=== PATIENT | female | born 1960 | race Caucasian/White ===

== ENCOUNTER 2020-04-28 08:18 | Outpatient (REF) | payer OTHER, SELFPAY | END 2020-04-28 08:19 | disposition home or self-care (01) | LOC: HO.LAB 08:18 | PROVIDERS: PCP Internal Medicine; Visit Provider Internal Medicine | DX: Z20.828 Contact with and (suspected) exposure to other viral communicable diseases (principal) | CPT/HCPCS: 87635 ==

== ENCOUNTER 2020-07-15 10:31 | Outpatient (REF) | payer OTHER, SELFPAY ==
[2020-07-15 12:27] LABS: Alanine Aminotransferase 36 U/L (0-31); Albumin Level 4.2 g/dL (3.5-5.0); Alkaline Phosphatase 73 U/L (39-117); Anion Gap 15 (12-20); Aspartate Amino Transferase 22 U/L (5-31); Bilirubin Total 0.4 mg/dL (0.0-1.0); Blood Urea Nitrogen 10 mg/dL (9-16); Calcium 9.3 mg/dL (8.4-10.2); Carbon Dioxide 27 mmol/L (22-29); Chloride 106 mmol/L (96-108); Cholesterol 220 mg/dL; Estimated Glomerular Filt Rate > 60; Glucose Fasting 91 mg/dL (60-99); HDL Cholesterol 53 mg/dL; LDL Cholesterol Calculated 144 mg/dl; Sodium 143 mmol/L (135-145); Total Protein 7.3 g/dL (6.5-8.0); Triglycerides 118 mg/dL
[2020-07-19 12:17] LABS: Vitamin D 25-OH, D2 <4 ng/mL; Vitamin D 25-OH, D3 18 ng/mL; Vitamin D 25-OH, Total 18 ng/mL (30-100)
== END 2020-07-15 10:32 | disposition home or self-care (01) ==
LOC: HO.LAB 10:31
PROVIDERS: PCP Internal Medicine; Visit Provider Internal Medicine
DX: Z20.822 Contact with and (suspected) exposure to COVID-19 (principal); E78.00 Pure hypercholesterolemia, unspecified; E78.5 Hyperlipidemia, unspecified; E55.9 Vitamin D deficiency, unspecified
CPT/HCPCS: 36415; 80053; 80061; 82306; U0003

== ENCOUNTER 2021-03-17 16:49 | Outpatient (REF) | payer OTHER, SELFPAY ==
--- NOTE | ~2021-03-17 | XR_ITS ---
EXAMINATION: XR KNEE, RIGHT CLINICAL INFORMATION: Right knee pain. COMPARISON: None. TECHNIQUE: 4 views of the right knee. FINDINGS: Mild medial and patellofemoral compartment joint space narrowing. Small tricompartmental marginal osteophytes. No osseous erosion. No fracture or dislocation. Trace joint effusion. No abnormal soft tissue calcification. XR/XR knee RT 4V IMPRESSION: Tricompartmental osteoarthritis and trace joint effusion.
[2021-03-17 17:55] LABS: MANUAL DIFF FLAG NO
[2021-03-17 18:15] LABS: Alanine Aminotransferase 33 U/L (0-31); Albumin Level 4.5 g/dL (3.5-5.0); Alkaline Phosphatase 79 U/L (39-117); Anion Gap 10 (12-20); Aspartate Amino Transferase 22 U/L (5-31); Bilirubin Total 0.4 mg/dL (0.0-1.0); Blood Urea Nitrogen 13 mg/dL (9-16); Calcium 9.8 mg/dL (8.4-10.2); Carbon Dioxide 29 mmol/L (22-29); Chloride 105 mmol/L (96-108); Cholesterol 230 mg/dL; Estimated Glomerular Filt Rate > 60; Glucose Fasting 93 mg/dL (60-99); HDL Cholesterol 53 mg/dL; LDL Cholesterol Calculated 150 mg/dl; Potassium 4.3 mmol/L (3.3-5.1); Sodium 140 mmol/L (135-145); Total Protein 7.7 g/dL (6.5-8.0); Triglycerides 139 mg/dL
[2021-03-17 18:30] LABS: Basophils Percent Auto 0.5 % (0-2); Eosinophils Absolute Auto 0.1 X10*3/uL (0.0-0.4); Eosinophils Percent Auto 1.6 % (0-4); Hematocrit 40.5 % (37-47); Hemoglobin 13.1 g/dl (12.0-16.0); Imm Gran Abs Auto 0.05 X10*3/uL (0.00-0.03); Imm Gran Pct Auto 0.6 % (0.0-0.4); Lymphocytes Absolute Auto 2.6 X10*3/uL (1.2-4.9); Lymphocytes Percent Auto 29.6 % (20-40); Mean Corpuscular HGB Conc 32.3 g/dl (31.0-35.0); Mean Corpuscular Hemoglobin 28.9 pg (27.0-33.0); Mean Corpuscular Volume 89.2 fL (80-98); Mean Platelet Volume 10.2 fL (9.4-12.3); Monocytes Absolute Auto 0.9 X10*3/uL (0.1-1.2); Monocytes Percent Auto 10.9 % (2-11); Neutrophils Absolute Auto 4.9 X10*3/uL (2.0-8.3); Neutrophils Percent Auto 56.8 % (45-73); Platelet Count 388 X10*3/uL (160-400); Red Blood Count 4.54 X10*6/uL (4.20-5.50); Red Cell Distribution Width 12.1 % (11.0-16.0); White Blood Count 8.6 X10*3/uL (4.8-10.8)
[2021-03-17 18:36] LABS: Thyroid Stimulating Hormone 1.94 uIU/mL (0.32-4.0)
[2021-03-22 16:56] LABS: Vitamin D 25-OH, D2 <4 ng/mL; Vitamin D 25-OH, D3 36 ng/mL; Vitamin D 25-OH, Total 36 ng/mL (30-100)
== END 2021-03-17 16:50 | disposition home or self-care (01) ==
LOC: HO.XRAY 16:49
PROVIDERS: PCP Internal Medicine; Visit Provider Internal Medicine
DX: E66.9 Obesity, unspecified (principal); E55.9 Vitamin D deficiency, unspecified; E78.5 Hyperlipidemia, unspecified; M25.561 Pain in right knee
CPT/HCPCS: 36415; 73564; 80053; 80061; 82306; 84443; 85025

== ENCOUNTER 2021-05-25 08:39 | Outpatient (REF) | payer OTHER, SELFPAY ==
[2021-05-25 09:37] LABS: Alanine Aminotransferase 16 U/L (0-31); Albumin Level 4.3 g/dL (3.5-5.0); Alkaline Phosphatase 81 U/L (39-117); Anion Gap 13 (12-20); Aspartate Amino Transferase 15 U/L (5-31); Bilirubin Total 0.4 mg/dL (0.0-1.0); Blood Urea Nitrogen 10 mg/dL (9-16); Carbon Dioxide 27 mmol/L (22-29); Chloride 106 mmol/L (96-108); Cholesterol 160 mg/dL; Estimated Glomerular Filt Rate > 60; Glucose Fasting 101 mg/dL (60-99); HDL Cholesterol 46 mg/dL; LDL Cholesterol Calculated 94 mg/dl; Potassium 4.4 mmol/L (3.3-5.1); Sodium 142 mmol/L (135-145); Total Protein 7.6 g/dL (6.5-8.0); Triglycerides 101 mg/dL
[2021-05-25 14:47] LABS: MANUAL DIFF FLAG NO
[2021-05-25 15:07] LABS: Basophils Absolute Auto 0.1 X10*3/uL (0.0-0.2); Basophils Percent Auto 0.9 % (0-2); Eosinophils Absolute Auto 0.3 X10*3/uL (0.0-0.4); Eosinophils Percent Auto 3.6 % (0-4); Hematocrit 41.6 % (37.0-47.0); Hemoglobin 13.3 g/dl (12.0-16.0); Imm Gran Abs Auto 0.03 X10*3/uL (0.00-0.03); Imm Gran Pct Auto 0.3 % (0.0-0.4); Lymphocytes Absolute Auto 2.5 X10*3/uL (1.2-4.9); Lymphocytes Percent Auto 25.9 % (20-40); Mean Corpuscular Hemoglobin 28.4 pg (27.0-33.0); Mean Corpuscular Volume 88.9 fL (80.0-98.0); Mean Platelet Volume 9.4 fL (9.4-12.3); Monocytes Absolute Auto 0.9 X10*3/uL (0.1-1.2); Monocytes Percent Auto 8.9 % (2-11); Neutrophils Absolute Auto 5.8 x10*3/uL (2.0-8.3); Neutrophils Percent Auto 60.4 % (45-73); Platelet Count 453 X10*3/uL (160-400); Red Blood Count 4.68 X10*6/uL (4.20-5.50); Red Cell Distribution Width 11.8 % (11.0-16.0); White Blood Count 9.6 X10*3/uL (4.8-10.8)
== END 2021-05-25 08:40 | disposition home or self-care (01) ==
LOC: HO.LAB 08:39
PROVIDERS: Absent Provider Nurse Practitioner Family; PCP Internal Medicine; Visit Provider Internal Medicine
DX: E78.00 Pure hypercholesterolemia, unspecified (principal); E78.5 Hyperlipidemia, unspecified; I10 Essential (primary) hypertension; K92.1 Melena
CPT/HCPCS: 36415; 80053; 80061; 85025

== ENCOUNTER 2021-06-15 07:18 | Emergency (ER) | payer OTHER, SELFPAY ==
[2021-06-15 07:53] VITALS: BP 168/84; PULSE 86; RESP 18; TEMP 36.8; O2SAT 96; BMI 29.2
--- NOTE | 2021-06-15 07:53 | ED_ITS ---
HPI - GI Bleed General Chief complaint: General Medical Stated complaint: rectal bleed Time Seen by Provider: 06/15/21 07:48 Source: patient Mode of arrival: ambulatory History of Present Illness HPI Narrative: ^1 yo presented with 4 Weeks hx of rectal bleeding,she states that she has bleeding only when she has to move the bowel,no melena,she saw PCP 1 Weeks ago told that she has hemorrhoid MD complaint: blood streaked stool Onset (ago): week(s) (4) Pain Consistency: constant Severity: mild Relieving factors: none Exacerbating factors: none Associated symptoms: denies other symptoms Related Data Home Medications Medication Instructions Recorded Confirmed omega-3 fatty acids 1,000 mg 1,000 mg PO DAILY 05/25/21 05/25/21 capsule (Fish Oil Concentrate) Previous Rx's Medication Instructions Recorded cholecalciferol (vitamin D3) 50 50 mcg PO DAILY 90 Days #90 cap 11/12/20 mcg (2,000 unit) capsule sennosides 8.6 mg capsule (senna) 8.6 mg PO BEDTIME PRN 90 Days #90 11/12/20 cap hydrocortisone-pramoxine 2.5 %-1 % 1 appl MO BID-TID PRN #30 g 05/25/21 rectal cream witch juliane 50 % topical pads 1 pad TOPICAL BID-TID PRN #100 ea 05/25/21 (Hemorrhoidal (witch juliane)) Allergies Allergy/AdvReac Type Severity Reaction Status Date / Time No Known Allergies Allergy Verified 05/25/21 13:43 Review of Systems Review of Systems: Yes all other systems are reviewed and are negative Constitutional: Constitutional: Reports no additional constitutional complaints ENT: Reports system reviewed and no additional complaints, except as documented and Denies dysphagia Cardiovascular: Cardiovascular: Reports no additional cardiovascular complaints Gastrointestinal: Gastrointestinal: Denies abdominal pain, Denies change in bowel habits, Denies coffee ground emesis and Denies dysphagia Neurologic: Reports system reviewed and no additional complaints, except as documented [facility] Past Medical History Medical History Constipation by delayed colonic transit GERD (gastroesophageal reflux disease) Hypovitaminosis D Obese Pure hypercholesterolemia Right knee pain Surgical History History of hysterectomy History of laparoscopic cholecystectomy Family History Family History Father Heart disease Mother Diabetes Hypertension Heart valve replaced Brother Myocardial infarction Maternal Grandmother No problems noted. Maternal Grandfather No problems noted. Paternal Grandmother Colon cancer Paternal Grandfather No problems noted. Social History Social History Housing: House Alcohol intake: never Patient Tobacco Use Status: Never used Tobacco e-Cigarette/Vaping Use: Never Used Second Hand Smoke Exposure: No Use of substances other than those prescribed or required for medical reasons: No Advance Directives: No Advance Directives Information Provided: No service: No Current occupational status: employed Current occupation: [employer] Cognitive needs: No Hearing needs: No Vision needs: Yes (Glasses) Physical Exam Vital Signs: Vital Signs: Last Vital Signs Temp 98.4 F 06/15/21 08:14 Pulse 89 06/15/21 08:14 Resp 16 06/15/21 08:14 BP 168/84 H 06/15/21 08:14 Pulse Ox 95 06/15/21 08:14 BMI result Body Mass Index 29.2 Const: General: cooperative Nutritional Appearance: average body habitus Orientation/consciousness: oriented to person and patient oriented x3 HENMT: Head: Yes normal to inspection Face and sinus: Yes normal facial exam Mouth: Normal oral and palatal mucosa present Neck: Neck: Yes normal visual inspection Chest: Chest palpation & inspection: normal inspection of the chest Resp: Effort & Inspection: normal respiratory effort Auscultation: clear to auscultation bilaterally Cardio: Jugular venous distension: no JVD Rate: regular rate Rhythm: regular rhythm GI: Inspection: Yes normal to inspection Palpation (GI): Soft to palpation, not firm, nontender, no guarding and not rigid Rectal Exam - Female: No heme positive stool and External hemorrhoid(s) present Neuro: General: oriented to person and patient oriented x3 Course Reevaluation(s) Reevaluation #1: HB HCT stable,heme negative stools OK to discharge and follow up with GI MDM - GI Bleed Lab Data Result diagrams: 06/15/21 08:12 06/15/21 08:12 Labs: Lab Results 06/15/21 06/15/21 06/15/21 Range/Units 08:12 08:12 08:12 WBC 8.2 (4.8-10.8) X10*3/uL RBC 4.36 (4.20-5.50) X10*6/uL Hgb 12.5 (12.0-16.0) g/dl Hct 38.8 (37.0-47.0) % MCV 89.0 (80.0-98.0) fL MCH 28.7 (27.0-33.0) pg MCHC 32.2 (31.0-35.0) g/dl RDW 11.9 (11.0-16.0) % Plt Count 407 H (160-400) X10*3/uL MPV 9.3 L (9.4-12.3) fL Immature Gran % (Auto) 0.4 (0.0-0.4) % Neut % (Auto) 52.1 (45-73) % Lymph % (Auto) 29.3 (20-40) % [place] % (Auto) 11.1 H (2-11) % Eos % (Auto) 6.0 H (0-4) % Baso % (Auto) 1.1 (0-2) % Lymph # (Auto) 2.4 (1.2-4.9) X10*3/uL [place] # (Auto) 0.9 (0.1-1.2) X10*3/uL Eos # (Auto) 0.5 H (0.0-0.4) X10*3/uL Baso # (Auto) 0.1 (0.0-0.2) X10*3/uL Abs Immat Gran (auto) 0.03 (0.00-0.03) X10*3/uL Absolute Neuts (auto) 4.3 (2.0-8.3) x10*3/uL Absolute Nucleated RBC 0.000 (0.0-0.012) X10*3/uL Nucleated RBC % (auto) 0.0 (0.0-0.2) /100WBC PT (9.9-13.0) SEC INR (0.9-1.1) APTT 33.4 (24.1-38.0) SEC Sodium 141 (135-145) mmol/L Potassium 4.2 (3.3-5.1) mmol/L Chloride 108 (96-108) mmol/L Carbon Dioxide 25 (22-29) mmol/L Anion Gap 12 (12-20) BUN 13 (9-16) mg/dL Creatinine 0.81 (0.5-1.4) mg/dL Estim Creat Clear Calc 72.3 Estimated GFR > 60 Random Glucose 100 (60-115) mg/dL Calcium 10.0 (8.4-10.2) mg/dL Total Bilirubin 0.6 (0.0-1.0) mg/dL AST 19 (5-31) U/L ALT 20 (0-31) U/L Alkaline Phosphatase 78 (39-117) U/L Total Protein 7.3 (6.5-8.0) g/dL Albumin 4.1 (3.5-5.0) g/dL Stool Occult Blood (NEGATIVE) 06/15/21 06/15/21 Range/Units 08:12 08:12 WBC (4.8-10.8) X10*3/uL RBC (4.20-5.50) X10*6/uL Hgb (12.0-16.0) g/dl Hct (37.0-47.0) % MCV (80.0-98.0) fL MCH (27.0-33.0) pg MCHC (31.0-35.0) g/dl RDW (11.0-16.0) % Plt Count (160-400) X10*3/uL MPV (9.4-12.3) fL Immature Gran % (Auto) (0.0-0.4) % Neut % (Auto) (45-73) % Lymph % (Auto) (20-40) % [place] % (Auto) (2-11) % Eos % (Auto) (0-4) % Baso % (Auto) (0-2) % Lymph # (Auto) (1.2-4.9) X10*3/uL [place] # (Auto) (0.1-1.2) X10*3/uL Eos # (Auto) (0.0-0.4) X10*3/uL Baso # (Auto) (0.0-0.2) X10*3/uL Abs Immat Gran (auto) (0.00-0.03) X10*3/uL Absolute Neuts (auto) (2.0-8.3) x10*3/uL Absolute Nucleated RBC (0.0-0.012) X10*3/uL Nucleated RBC % (auto) (0.0-0.2) /100WBC PT 12.3 (9.9-13.0) SEC INR 1.1 (0.9-1.1) APTT (24.1-38.0) SEC Sodium (135-145) mmol/L Potassium (3.3-5.1) mmol/L Chloride (96-108) mmol/L Carbon Dioxide (22-29) mmol/L Anion Gap (12-20) BUN (9-16) mg/dL Creatinine (0.5-1.4) mg/dL Estim Creat Clear Calc Estimated GFR Random Glucose (60-115) mg/dL Calcium (8.4-10.2) mg/dL Total Bilirubin (0.0-1.0) mg/dL AST (5-31) U/L ALT (0-31) U/L Alkaline Phosphatase (39-117) U/L Total Protein (6.5-8.0) g/dL Albumin (3.5-5.0) g/dL Stool Occult Blood NEGATIVE (NEGATIVE) Discharge Plan Discharge Clinical Impression: External hemorrhoid, Rectal bleed Patient Disposition: Home, Self-Care Instructions: Hemorrhoids (ED), Rectal Bleeding (ED) Additional Instructions: Follow up with express clerk return if worse Prescriptions: No Action cholecalciferol (vitamin D3) 50 mcg (2,000 unit) capsule 50 mcg PO DAILY 90 Days Qty: 90 RF: 3 senna 8.6 mg capsule 8.6 mg PO BEDTIME PRN (Reason: constipation) 90 Days Qty: 90 RF: 0 omega-3 fatty acids [Fish Oil Concentrate] 1,000 mg capsule 1,000 mg PO DAILY RF: 0 hydrocortisone-pramoxine 2.5-1 % cream 1 appl MO BID-TID PRN (Reason: itching) Qty: 30 RF: 0 Hemorrhoidal (witch juliane) 50 % pads, medicated 1 pad topical BID-TID PRN (Reason: skin irritation) Qty: 100 RF: 0 Referrals: Yasir Arrieta [Physician] - 2 days Stand Alone Forms: Work/School Release Interventions: ED Discharge Assessment Last Done: 06/15/21 09:36 Discharge Date/Time: 06/15/21 09:38
[2021-06-15 08:14] VITALS: BP 168/84; PULSE 89; RESP 16; TEMP 36.9; O2SAT 95
[2021-06-15 08:21] LABS: MANUAL DIFF FLAG NO
[2021-06-15 08:24] LABS: Basophils Absolute Auto 0.1 X10*3/uL (0.0-0.2); Basophils Percent Auto 1.1 % (0-2); Eosinophils Absolute Auto 0.5 X10*3/uL (0.0-0.4); Hematocrit 38.8 % (37.0-47.0); Hemoglobin 12.5 g/dl (12.0-16.0); Imm Gran Abs Auto 0.03 X10*3/uL (0.00-0.03); Imm Gran Pct Auto 0.4 % (0.0-0.4); Lymphocytes Absolute Auto 2.4 X10*3/uL (1.2-4.9); Lymphocytes Percent Auto 29.3 % (20-40); Mean Corpuscular HGB Conc 32.2 g/dl (31.0-35.0); Mean Corpuscular Hemoglobin 28.7 pg (27.0-33.0); Mean Platelet Volume 9.3 fL (9.4-12.3); Monocytes Absolute Auto 0.9 X10*3/uL (0.1-1.2); Monocytes Percent Auto 11.1 % (2-11); Neutrophils Absolute Auto 4.3 x10*3/uL (2.0-8.3); Neutrophils Percent Auto 52.1 % (45-73); OBS Int Ctl Valid YES; OBS1 NEGATIVE (NEGATIVE); Platelet Count 407 X10*3/uL (160-400); Red Blood Count 4.36 X10*6/uL (4.20-5.50); Red Cell Distribution Width 11.9 % (11.0-16.0); White Blood Count 8.2 X10*3/uL (4.8-10.8)
[2021-06-15 08:51] LABS: Partial Thromboplastin Time 33.4 SEC (24.1-38.0)
[2021-06-15 08:52] LABS: INTERNATIONAL NORM RATIO 1.1 (0.9-1.1); Prothrombin Time 12.3 SEC (9.9-13.0)
[2021-06-15 08:53] LABS: Alanine Aminotransferase 20 U/L (0-31); Albumin Level 4.1 g/dL (3.5-5.0); Alkaline Phosphatase 78 U/L (39-117); Anion Gap 12 (12-20); Aspartate Amino Transferase 19 U/L (5-31); Bilirubin Total 0.6 mg/dL (0.0-1.0); Blood Urea Nitrogen 13 mg/dL (9-16); Carbon Dioxide 25 mmol/L (22-29); Chloride 108 mmol/L (96-108); Creatinine Clr Calc Pharmacy 72.3; Estimated Glomerular Filt Rate > 60; Glucose Random 100 mg/dL (60-115); Potassium 4.2 mmol/L (3.3-5.1); Sodium 141 mmol/L (135-145); Total Protein 7.3 g/dL (6.5-8.0)
== END 2021-06-15 09:38 | disposition home or self-care (01) ==
PROVIDERS: Emergency Provider Emergency Medicine; PCP Internal Medicine
DX: K64.4 Residual hemorrhoidal skin tags (principal); K62.5 Hemorrhage of anus and rectum
CPT/HCPCS: 36415; 80053; 82272; 85025; 85610; 85730; 99284

== ENCOUNTER → 2021-08-03 08:14 | Outpatient (BNVA) | payer OTHER, SELFPAY | PROVIDERS: PCP Internal Medicine; Referring Provider Internal Medicine; Visit Provider Internal Medicine Gastroenterology ==

== ENCOUNTER 2021-10-03 13:01 | Outpatient (REF) | payer OTHER, SELFPAY ==
[2021-10-03 13:28] LABS: Binax Internal Control QC Valid; Binax Now Covid-19 Ag Positive (Negative); Binax Performed by: HO.BONILM
== END 2021-10-03 13:02 | disposition home or self-care (01) ==
LOC: HO.HMGCLDS 13:01
PROVIDERS: PCP Internal Medicine; Visit Provider Physician Assistant Medical
DX: Z13.89 Encounter for screening for other disorder (principal)

== ENCOUNTER 2021-10-12 07:41 | Emergency (ER) | payer OTHER, SELFPAY ==
--- NOTE | ~2021-10-12 | XR_ITS ---
EXAMINATION: XR CHEST CLINICAL INFORMATION: Productive cough. Chest pain. COMPARISON: 01/14/2018 TECHNIQUE: 2 views of the chest were obtained. FINDINGS: The lungs are well expanded. There is no focal consolidation, edema, or effusion. No pneumothorax. The cardiomediastinal silhouette is within normal limits. No acute osseous abnormality. XR/XR chest 2V IMPRESSION: Clear lungs.
--- NOTE | 2021-10-12 07:49 | ECG_ITS ---
Test Reason : cp Blood Pressure : / mmHG Vent. Rate : 074 BPM Atrial Rate : 074 BPM P-R Int : 120 ms QRS Dur : 078 ms QT Int : 380 ms P-R-T Axes : 026 049 055 degrees QTc Int : 421 ms Normal sinus rhythm Normal ECG When compared with ECG of 28-MAR-2018 09:27, Nonspecific T wave abnormality no longer evident in Anterior leads Referred By: Generic ED Physician Electronically Signed By:JOSETTE RENEE MD
[2021-10-12 08:10] VITALS: BP 189/80; PULSE 84; RESP 18; TEMP 36.1; O2SAT 98; BMI 28.3
--- NOTE | 2021-10-12 08:16 | ED.URI ---
HPI - URI/Sore Throat General Chief Complaint: Upper Respiratory Symptoms Stated Complaint: Body aches/Chest pain Time Seen by Provider: 10/12/21 08:15 Source: patient Mode of arrival: ambulatory Limitations: no limitations History of Present Illness HPI Narrative: 60 y/o female with history of osteoarthritis, GERD, HLD presents to the ER with bodyaches, productive cough of yellow phlegm, ear pressure, headaches and not feeling well for the last almost 2 weeks. She was seen at the end of September at an Urgent Care and had a negative COVID test. She has been taking OTC cold and flu medications Nyquil and Mucinex with minimal improvement. She reports chest discomfort when coughing only. No SOB or difficulty breathing. She feels drained and weak from being sick for so long. She denies sick contacts. She has J&J COVID shot almost a year ago, no Flu shot. MD elicited complaint: cough and other (body aches) Onset (ago): week(s) (2) Consistency: constant Severity: moderate Description of mucous: yellow Able to tolerate fluids by mouth: Yes Exacerbating factors: nothing Relieving factors: OTC cold medicine Associated symptoms: myalgias, headache, sore throat, cough, chest pain, shortness of breath and ear pain Treatments prior to arrival: none Related Data Home Medications Medication Instructions Recorded Confirmed omega-3 fatty acids 1,000 mg 1,000 mg PO DAILY 05/25/21 08/06/21 capsule (Fish Oil Concentrate) Previous Rx's Medication Instructions Recorded cholecalciferol (vitamin D3) 50 50 mcg PO DAILY 90 Days #90 cap 11/12/20 mcg (2,000 unit) capsule sennosides 8.6 mg capsule (senna) 8.6 mg PO BEDTIME PRN 90 Days #90 11/12/20 cap sennosides 8.6 mg-docusate sodium 1 tab-cap PO BEDTIME 28 Days #28 06/15/21 50 mg tablet (Senna with Docusate tab Sodium) psyllium husk 2.6 gram/4.1 gram 1 tbsp PO DAILY 30 Days #480 g 08/03/21 oral powder lidocaine 1.8 % topical patch 1 patch TOPICAL DAILY 30 Days #30 08/06/21 ea naproxen 500 mg tablet 500 mg PO BID PRN 30 Days #60 tab 08/06/21 azithromycin 250 mg tablet See Rx Instructions .ROUTE 10/12/21 (Zithromax Z-Rj) .COMPLEX #6 tab prednisone 20 mg tablet 40 mg PO DAILY #10 tab 10/12/21 Allergies Allergy/AdvReac Type Severity Reaction Status Date / Time atorvastatin AdvReac Mild myalgia Verified 10/03/21 12:24 Review of Systems Review of Systems: Constitutional: No Fever, No Chills ENT/Mouth: + sore throat, No Rhinorrhea, No Swallowing Difficulty Eyes: No Eye Pain, No Swelling, No Redness Cardiovascular: + Chest Pain, No SOB, No Orthopnea, No Edema Respiratory: + Cough, + Sputum, No Wheezing, No dyspnea Gastrointestinal: No Nausea, No Vomiting, No Diarrhea, No abdominal Pain, No Hematochezia, No Melena Genitourinary: No Dysuria, No Urinary Frequency, No Hematuria Musculoskeletal: + joint pain, + Myalgias Skin: No Skin Lesions, No rash Neuro: + Weakness, No Numbness, No Dizziness, + Headache Psych: No Anxiety/Panic, No Depression Heme/Lymph: No Bruising, No Lymphadenopathy Endocrine: No Polyuria, No Polydipsia [facility] Past Medical History Attestation statement: The following information was validated with the patient. Medical History Constipation by delayed colonic transit GERD (gastroesophageal reflux disease) Hypovitaminosis D Obese Osteoarthritis of right knee Pure hypercholesterolemia Right knee pain Surgical History History of hysterectomy History of laparoscopic cholecystectomy Family History Family History Father Heart disease Mother Diabetes Hypertension Heart valve replaced Brother Myocardial infarction Maternal Grandmother No problems noted. Maternal Grandfather No problems noted. Paternal Grandmother Colon cancer Paternal Grandfather No problems noted. Social History Social History Housing: House Alcohol intake: never Patient Tobacco Use Status: Never used Tobacco e-Cigarette/Vaping Use: Never Used Second Hand Smoke Exposure: No service: No Current occupational status: employed Current occupation: [employer] Cognitive needs: No Hearing needs: No Vision needs: Yes (Glasses) Physical Exam Vital Signs: Vital Signs: Last Vital Signs Temp 97 F 10/12/21 08:10 Pulse 84 10/12/21 08:10 Resp 18 10/12/21 08:10 BP 189/80 H 10/12/21 08:10 Pulse Ox 98 10/12/21 08:10 BMI result Body Mass Index 28.3 Appearance: Alert. Oriented X3. No acute distress. Eyes: Pupils equal, round and reactive to light. ENT: Pharynx normal. Normal tonsils, uvula midline. Bilateral TMs with effusion, no erythema or bulging. Neck: Normal inspection. Neck supple. No LAD. CVS: Normal heart rate and rhythm. Pulses normal. Respiratory: No respiratory distress. Breath sounds normal. Wet cough noted. Skin: Skin warm and dry. Normal skin color. Normal skin turgor. No rashes. Extremities: No lower extremity edema. No calf tenderness. Neuro: Oriented X 3. Grossly normal, nonfocal. Course Course Course Narrative: 60 y/o female presents to the ER with close 2 weeks of URI symptoms including sore throat, ear pain, headaches, body aches and joint pains, productive cough of yellow phlegm and chest wall pain. She was recently tested for COVID and was negative. She denies any fever or chills at home, no shortness of breath or difficulty breathing. She reports the chest pain is only when she coughs or touches her chest wall. On arrival to the ER she is hypertensive 189/90, afebrile, normal heart rate and normal oxygen saturation. Her examination is benign. Will check chest x-ray to rule out pneumonia as well as COVID and flu swabs. She has been taking [id number] cold and flu medications which can be the cause of her elevated blood pressure. She has no current chest pain, headaches or vision changes. CP is not consistent with ACS. Reevaluation(s) Reevaluation #1: Chest x-ray is clear. COVID and flu were negative. EKG is normal. Given the duration of her symptoms and complaints, will give empiric course of antibiotics and steroids for URI. Work note provided per request. Patient is stable for discharge home with supportive care and outpatient follow-up. She was encouraged follow-up with her primary care doctor this week. Return precautions were discussed. [facility] - URI/Sore Throat Medical Records Attestation: I reviewed the patient's medical records. Lab Data Attestation: I reviewed the patient's lab results. Labs: Lab Results 10/12/21 10/12/21 Range/Units 09:14 09:14 COVID-19 ([place]) Negative (Negative) COVID-19 Clin Com See Note Influenza Type A ([place]) Negative (Negative) Influenza Type B ([place]) Negative (Negative) Influenza A & B Note See Note ECG Data Attestation: I personally reviewed and interpreted this ECG as follows: ECG interpretation date: 10/12/21 Prior ECG tracings: available for review Interpretation: Normal sinus rhythm, heart rate 74 beats per minute, normal OK interval, normal QTC, normal EKG. No ST segment elevations or depressions. Critical Care Time Critical Care Time Critical Care Time: No Discharge Plan Discharge Clinical Impression: Upper respiratory infection Patient Disposition: Home, Self-Care Instructions: Upper Respiratory Infection (DC) Additional Instructions: Your chest x-ray did not show any pneumonia. You are negative for COVID-19 and Influenza. Take the prescribed medications as directed. Take Motrin and/or Tylenol as needed for body aches and pains. Rest and drink plenty of fluids. Follow up with your doctor this week. If you develop new or worsening symptoms call 911 or come back to the ER for further evaluation. Prescriptions: New prednisone 20 mg tablet 40 mg PO DAILY Qty: 10 0RF azithromycin [Zithromax Z-Rj] 250 mg tablet See Rx Instructions .ROUTE .COMPLEX Qty: 6 0RF Rx Instructions: take 500 mg today (day 1), then 250 mg for 4 days (days 2-5) No Action sennosides-docusate sodium [Senna with Docusate Sodium] 8.6-50 mg tablet 1 tab-cap PO BEDTIME 28 Days Qty: 28 3RF cholecalciferol (vitamin D3) 50 mcg (2,000 unit) capsule 50 mcg PO DAILY 90 Days Qty: 90 3RF senna 8.6 mg capsule 8.6 mg PO BEDTIME PRN (Reason: constipation) 90 Days Qty: 90 0RF naproxen 500 mg tablet 500 mg PO BID PRN (Reason: pain) 30 Days Qty: 60 0RF lidocaine 1.8 % adhesive patch,medicated 1 patch topical DAILY 30 Days Qty: 30 0RF Rx Instructions: leave on most painful area for up to 12 hrs omega-3 fatty acids [Fish Oil Concentrate] 1,000 mg capsule 1,000 mg PO DAILY 0RF psyllium husk 2.6 gram/4.1 gram powder 1 tbsp PO DAILY 30 Days Qty: 480 3RF Rx Instructions: mix into at least 8 oz of water or juice before administering Stand Alone Forms: Work/School Release Interventions: ED Discharge Assessment Last Done: 10/12/21 10:36 Discharge Date/Time: 10/12/21 10:37
[2021-10-12 09:44] LABS: COVID-19 Test Negative (Negative)
[2021-10-12 10:21] LABS: Influenza A Negative (Negative); Influenza B2 Negative (Negative)
== END 2021-10-12 10:37 | disposition home or self-care (01) ==
PROVIDERS: Physician Assistant; Emergency Provider Emergency Medicine; PCP Internal Medicine
DX: J06.9 Acute upper respiratory infection, unspecified (principal); Z20.822 Contact with and (suspected) exposure to COVID-19; J02.9 Acute pharyngitis, unspecified
CPT/HCPCS: 71046; 87502; 87635; 93005; 99283

== ENCOUNTER 2022-04-21 09:12 | Outpatient (REF) | payer OTHER, SELFPAY ==
[2022-04-21 10:56] LABS: Cholesterol 230 mg/dL; HDL Cholesterol 55 mg/dL; LDL Cholesterol Calculated 156 mg/dl; Triglycerides 95 mg/dL
[2022-04-27 14:07] LABS: Vitamin D 25-OH, D2 <4 ng/mL; Vitamin D 25-OH, D3 33 ng/mL; Vitamin D 25-OH, Total 33 ng/mL (30-100)
== END 2022-04-21 09:13 | disposition home or self-care (01) ==
LOC: HO.LAB 09:12
PROVIDERS: PCP Internal Medicine; Visit Provider Internal Medicine
DX: E55.9 Vitamin D deficiency, unspecified (principal); E78.5 Hyperlipidemia, unspecified
CPT/HCPCS: 36415; 80061; 82306

== ENCOUNTER 2023-04-22 09:41 | Outpatient (AMB) | payer BC, SELFPAY ==
--- NOTE | 2023-04-22 13:18 | AM.OFFWIN_ITS ---
Intake Vital Signs 04/22/23 13:20 Weight 173 lb BP 140/90 H Blood Pressure Location Lt brachial Position Sitting Pulse 90 Pulse Source Pulse Oximeter Pulse Oximetry (%) 98 Oxygen Delivery Method Room Air Intake Visit Reasons: EST/sinus inf/(lobby no car) Intake Note: Patient here for possible sinus infection and has throbbing and pressure on right side of face that has been present for about 2 weeks and has not gone away. Patient Tobacco Use Status: Never used Tobacco Allergies atorvastatin Adverse Reaction (Mild, Verified 04/22/23 13:21) myalgia Do you need a note to return to daycare/school/sports/work: No HPI HPI Comments History of Present Illness Details This is a 62-year-old female who presents to the office today for sick visit. Patient complaining of persistent right-sided sinus pressure / congestion and right-sided facial swelling x2 weeks. She denies any fevers or chills. She denies any throat swelling or difficulty swallowing. She denies any difficulty breathing. She denies any chest pain. She denies any abdominal pain or nausea/ vomiting/ diarrhea. Patient states she feels as though she is very congested and she has been utilizing [id number] decongestants but she is not having much rhinorrhea or drainage. [facility] Medical History Constipation by delayed colonic transit GERD (gastroesophageal reflux disease) Hypovitaminosis D Obese Osteoarthritis of right knee Pure hypercholesterolemia Right knee pain Surgical History History of hysterectomy History of laparoscopic cholecystectomy Family History Father Heart disease Mother Diabetes Hypertension Heart valve replaced Brother Myocardial infarction Maternal Grandmother No problems noted. Maternal Grandfather No problems noted. Paternal Grandmother Colon cancer Paternal Grandfather No problems noted. Social History Housing: House Alcohol intake: current Alcohol intake frequency: holidays/special occasions only Alcohol type: wine Patient Tobacco Use Status: Never used Tobacco e-Cigarette/Vaping Use: Never Used Second Hand Smoke Exposure: No service: No Current occupational status: employed Current occupation: [employer] Current occupational exposures/hazards: No Cognitive needs: No Hearing needs: No Vision needs: Yes (Glasses) Review of Systems Const All systems reviewed & are unremarkable except as noted in HPI and below Reports no additional complaints Eyes Reports no additional complaints ENT Reports no additional complaints Card Reports no additional complaints Resp Reports no additional complaints GI Reports no additional complaints Reports no additional complaints Musc Reports no additional complaints Skin/Breast Reports system reviewed and no additional complaints, except as documented Neuro Reports no additional complaints Psych Reports no additional complaints Endo Reports no additional complaints Tamir/Lymph Reports no additional complaints Aller/Immun Reports no additional complaints Physical Exam Vital Signs: Last Vital Signs Pulse 90 04/22/23 13:20 BP 140/90 H 04/22/23 13:20 Pulse Ox 98 04/22/23 13:20 Oxygen Delivery Method Room Air 04/22/23 13:20 Const Other: Vital signs reviewed. Constitutional: Non-toxic appearing. No acute distress. Well-developed and well-nourished. HEENT: Normocephalic and atraumatic. Tympanic membranes are slightly bulging bilaterally but no erythema. External auditory canals without erythema or edema bilaterally. Moist mucous membranes. No pharyngeal erythema or exudates. No peritonsillar mass, uvular deviation, unilateral neck swelling. No right-sided facial swelling appreciated on physical examination. No gingivitis or dental abscess noted. No postauricular mass, tenderness, or erythema. Skin: Warm and dry. No rashes or lesions noted. Neck: Full and painless range of motion. No cervical lymphadenopathy. Cardio: Regular rate and rhythm. No murmurs, gallops, or rubs. No lower extremity edema. No JVD. Pulmonary: No respiratory distress. No accessory muscle usage. Clear to auscultation bilaterally without wheezing, crackles, or rhonchi. Gastrointestinal: Soft, nontender, and nondistended in all 4 quadrants. Normoactive bowel sounds in all 4 quadrants. Genitourinary: No CVA tenderness. Musculoskeletal: Normal range of motion in joints throughout the body. No deformity or other signs of injury. Neuro: Alert and oriented x4. Cranial nerves 2-12 grossly intact. No focal deficits appreciated. Psych: Normal mood and affect. Assessment & Plan Assessment & Plan (1) Rhinosinusitis: Code(s): J32.9 - Chronic sinusitis, unspecified Plan: This is a 62-year-old female who presents to the office complaining of right- sided sinus pressure/congestion with minimal rhinorrhea/nasal drainage. On physical examination, she has no appreciable right-sided facial swelling, no peritonsillar mass, no unilateral neck swelling, no uvular deviation, and no postauricular swelling/erythema/ tenderness. I believe patient likely has acute rhinosinusitis causing sinus pressure/congestion. Patient's vital signs are stable and she is overall nontoxic appearing. She has no evidence of a life- threatening condition at this time. I believe the patient is safe to be discharged home. Patient also feels safe being discharged home at this time. Patient will be sent home on p.o. amoxicillin -clavulanate twice daily times 10 days for treatment of rhinosinusitis. Patient was instructed to proceed directly to the emergency room if she were to develop throat swelling, trouble swallowing, facial swelling, or fever/chills. Patient verbalized understanding and is agreeable with the plan. Medications: New amoxicillin-pot clavulanate 875-125 mg 1 tab PO BID 20 tabs 0RF ibuprofen Take with food. 800 mg PO TID 21 tabs 0RF Coding Level of Care Code Est Pt Level 3 (79717) Diagnoses Rhinosinusitis J32.9
[2023-04-22 13:20] VITALS: BP 140/90; PULSE 90; O2SAT 98
== END 2023-04-22 13:38 | disposition home or self-care (01) ==
PROVIDERS: PCP Internal Medicine; Visit Provider Physician Assistant Medical
DX: J32.9 Chronic sinusitis, unspecified (principal)
CPT/HCPCS: 99213

== ENCOUNTER 2023-09-05 10:42 | Outpatient (AMB) | payer BC, SELFPAY ==
--- NOTE | 2023-09-05 10:49 | AM.OFFWIN_ITS ---
Intake Vital Signs 09/05/23 10:50 Weight 84.368 kg BP 140/90 H Blood Pressure Location Lt brachial Position Sitting Pulse 70 Pulse Source Pulse Oximeter Pulse Oximetry (%) 97 Oxygen Delivery Method Room Air Intake Visit Reasons: EST/left lower shoulder/back pain (lobby) Intake Note: Patient here for right sided head pain that goes down to upper back which started yesterday. Patient Tobacco Use Status: Never used Tobacco Allergies atorvastatin Adverse Reaction (Mild, Verified 09/05/23 10:51) myalgia Do you need a note to return to daycare/school/sports/work: No HPI HPI Comments History of Present Illness Details 1020 This is a 62-year-old female who presents with right-sided ear pain with radiation to right shoulder and right side of thoracic spine/back, patient reports that this pain has been ongoing for the past few days she told her PCP and they told her to put hydrogen peroxide in her ear. Unclear however they thought she had an infection she states she has not on antibiotics. She also reports discomfort in her thoracic spine, on the right side, worse with deep breathing. No recent travel, not on hormones, no history of DVT or PE, not on blood thinners. Denies chest pain, shortness of breath, nausea, vomiting, headache, vision changes, dizziness, weakness. Physical examination with a cerumen impacted right ear and discomfort with patient of right-sided thoracic 1 through 4 paraspinous muscle spasms History and physical exam concerning for musculoskeletal pain to the thoracic spine possible ear infection or discomfort ear secondary to cerumen impaction. No signs of mastoiditis, intracranial hemorrhage, stroke, posterior stroke, unlikely ACS. Will obtain D-dimer to rule out PE although unlikely. Plan at this time will irrigate right ear with water and obtain D-dimer. Patient to be discharged with prednisone and naproxen. Educated patient on diagnosis and treatment plan, answered all question, patient verbalizes understanding. At this time patient will be discharged home, advised to return with new or worsening symptoms. Educated on worrisome signs and symptoms and when to return. At this time I feel comfortable discharge home. [facility] Medical History Osteoarthritis of right knee Right knee pain Obese Constipation by delayed colonic transit Pure hypercholesterolemia Hypovitaminosis D GERD (gastroesophageal reflux disease) Surgical History History of laparoscopic cholecystectomy History of hysterectomy Family History Father Heart disease Mother Diabetes Hypertension Heart valve replaced Brother Myocardial infarction Maternal Grandmother No problems noted. Maternal Grandfather No problems noted. Paternal Grandmother Colon cancer Paternal Grandfather No problems noted. Social History Housing: House Alcohol intake: current Alcohol intake frequency: holidays/special occasions only Alcohol type: wine Patient Tobacco Use Status: Never used Tobacco e-Cigarette/Vaping Use: Never Used Second Hand Smoke Exposure: No service: No Current occupational status: employed Current occupation: [employer] Current occupational exposures/hazards: No Cognitive needs: No Hearing needs: No Vision needs: Yes (Glasses) Review of Systems Const All systems reviewed & are unremarkable except as noted in HPI and below Physical Exam Vital Signs: Last Vital Signs Pulse 70 09/05/23 10:50 BP 140/90 H 09/05/23 10:50 Pulse Ox 97 09/05/23 10:50 Oxygen Delivery Method Room Air 09/05/23 10:50 Vital signs stable Appearance: Alert.? Oriented X3.? No acute distress.? Head: Normocephalic, atraumatic, no step-offs or deformities Eyes: Pupils equal, round and reactive to light.? ENT: Pharynx normal.? Right ear with cerumen impaction Neck: Normal inspection.? Neck supple.? CVS: Normal heart rate and rhythm.? Pulses normal.? Respiratory: No respiratory distress.? Breath sounds normal.? Abdomen: Soft and nontender.? Skin: Skin warm and dry.? Normal skin color.? Normal skin turgor.? Extremities: No lower extremity edema.? No calf ttp. 5/5 strength to bilateral upper and lower extremities. Normal hand cosmetician bilaterally Back: No midline tenderness, no C-spine tenderness, full range of motion, no CVA tenderness bilaterally thoracic right 1 through 4 paraspinous muscles with tenderness to palpation. No midline pain Neuro: Oriented X 3.? No motor deficit.? No sensory deficit. CN 2-12 intact . Ambulating with steady gait normal coordination Assessment & Plan Assessment & Plan (1) Thoracic back pain: Code(s): M54.6 - Pain in thoracic spine (2) Cerumen impaction: Code(s): H61.20 - Impacted cerumen, unspecified ear Plan Take your medications as prescribed. If you were prescribed antibiotics today, it is important that you take your medication to their entirety, do not skip any doses, do not finish them early. Follow-up with your primary care provider this week. Return to the emergency department with new or worsening symptoms. Such as fevers, chills, chest pain, shortness of breath, nausea, vomiting, dizziness, headache, vision changes, lethargy In case of emergency call 911 Orders: Orders D Dimer High Sensitivity Today M54.6 - Pain in thoracic spine Medications: New prednisone 20 mg PO DAILY 5 days 5 tabs 0RF naproxen 500 mg PO BID PRN 14 tabs 0RF pain Coding Level of Care Code Est Pt Level 3 (08167) Diagnoses Thoracic back pain M54.6 Cerumen impaction H61.20
[2023-09-05 10:50] VITALS: BP 140/90; PULSE 70; O2SAT 97
== END 2023-09-05 15:27 | disposition home or self-care (01) ==
PROVIDERS: PCP Internal Medicine; Visit Provider Physician Assistant
DX: M54.6 Pain in thoracic spine (principal); H61.21 Impacted cerumen, right ear
CPT/HCPCS: 69209; 99213

== ENCOUNTER 2023-09-05 11:28 | Outpatient (REF) | payer BC, SELFPAY ==
[2023-09-05 13:56] LABS: D Dimer High Sensitivity < 150 NG/ML
== END 2023-09-05 11:29 | disposition home or self-care (01) ==
LOC: HO.HMGCLDS 11:28
PROVIDERS: PCP Internal Medicine; Visit Provider Physician Assistant
DX: M54.6 Pain in thoracic spine (principal)
CPT/HCPCS: 36415; 85379

== ENCOUNTER 2023-09-28 07:59 | Emergency (ER) | payer BC, SELFPAY ==
--- NOTE | ~2023-09-28 | XR_ITS ---
EXAMINATION: XR RIBS, RIGHT CLINICAL INFORMATION: Right-sided pain COMPARISON: None available. TECHNIQUE: 3 views of the right ribs were obtained. FINDINGS: A marker is placed in the area of clinical concern. Right ribs appear intact. No fracture or destructive process. Lungs clear. No pneumothorax. Heart and pulmonary vessels are normal. There are surgical clips in the right upper quadrant. XR/XR ribs RT min 3V w CXR1V IMPRESSION: Negative study.
--- NOTE | ~2023-09-28 | CT_ITS ---
EXAMINATION: CT HEAD WITHOUT CONTRAST CLINICAL INFORMATION: Headache COMPARISON: MRI brain from 09/11/2019 TECHNIQUE: Contiguous axial imaging was performed from the skull base to vertex without intravenous administration of contrast. This CT examination was performed using dose optimization techniques as appropriate, variously including the following: *Automated exposure control *Adjustment of mA and/or kV according to patient size (this includes techniques or standardized protocols for targeted exams where dose is matched to indication/reason for exam; i.e. extremities or head) *Use of iterative reconstruction technique DLP: 742 mGy-cm FINDINGS: There is no evidence of acute intracranial hemorrhage or territorial infarction. No abnormal mass effect or midline shift is seen. Castillo to white matter differentiation is well preserved. No extra-axial fluid collections are identified. The ventricles are normal in size. There is no abnormal attenuation within the brain parenchyma. The osseous structures and soft tissues are normal. The mastoid air cells and visualized portions of the paranasal sinuses are well aerated. CT/CT head/brain wo IV con IMPRESSION: No acute intracranial pathology.
[2023-09-28 08:09] VITALS: BP 175/94; PULSE 79; RESP 18; TEMP 36.4; O2SAT 96; BMI 31.4
[2023-09-28 08:33] LABS: MANUAL DIFF FLAG NO
[2023-09-28 08:36] LABS: Basophils Absolute Auto 0.1 X10*3/uL (0.0-0.2); Basophils Percent Auto 0.8 % (0-2); Eosinophils Absolute Auto 0.1 X10*3/uL (0.0-0.4); Eosinophils Percent Auto 1.4 % (0-4); Hematocrit 41.4 % (37.0-47.0); Hemoglobin 13.7 g/dl (12.0-16.0); Imm Gran Abs Auto 0.03 X10*3/uL (0.00-0.03); Imm Gran Pct Auto 0.4 % (0.0-0.4); Lymphocytes Absolute Auto 1.8 X10*3/uL (1.2-4.9); Lymphocytes Percent Auto 25.3 % (20-40); Mean Corpuscular HGB Conc 33.1 g/dl (31.0-35.0); Mean Corpuscular Hemoglobin 29.3 pg (27.0-33.0); Mean Corpuscular Volume 88.7 fL (80.0-98.0); Mean Platelet Volume 9.5 fL (9.4-12.3); Monocytes Absolute Auto 0.5 X10*3/uL (0.1-1.2); Monocytes Percent Auto 7.3 % (2-11); Neutrophils Absolute Auto 4.7 x10*3/uL (2.0-8.3); Neutrophils Percent Auto 64.8 % (45-73); Platelet Count 396 X10*3/uL (160-400); Red Blood Count 4.67 X10*6/uL (4.20-5.50); Red Cell Distribution Width 12.1 % (11.0-16.0); White Blood Count 7.3 X10*3/uL (4.8-10.8)
[2023-09-28 08:38] LABS: Appearance Urine Clear; Color Urine Yellow; Glucose Urine UA Negative (Negative); Leukocyte Esterase Urine Negative (Negative); Nitrite Urine Negative (Negative); Urine Blood Negative (Negative); Urine Ketones Negative (Negative); Urine Protein Negative (Neg-Trace)
[2023-09-28 08:53] LABS: Alanine Aminotransferase 22 U/L (0-31); Albumin Level 4.1 g/dL (3.5-5.0); Alkaline Phosphatase 71 U/L (39-117); Anion Gap 12 (12-20); Aspartate Amino Transferase 20 U/L (5-31); Bilirubin Total 0.3 mg/dL (0.0-1.0); Blood Urea Nitrogen 13 mg/dL (9-16); Calcium 9.6 mg/dL (8.4-10.2); Carbon Dioxide 26 mmol/L (22-29); Chloride 108 mmol/L (96-108); Creatinine Clr Calc Pharmacy 72.2; Estimated Glomerular Filt Rate > 60; Glucose Random 116 mg/dL (60-115); Potassium 4.4 mmol/L (3.3-5.1); Sodium 142 mmol/L (135-145); Total Protein 7.8 g/dL (6.5-8.0)
[2023-09-28 11:26] VITALS: BP 206/83; PULSE 87; RESP 18; TEMP 36.7; O2SAT 96
--- NOTE | 2023-09-28 11:30 | ED_ITS ---
HPI - General Adult General Chief complaint: General Medical Stated complaint: Body pain right side Time Seen by Provider: 09/28/23 13:42 Source: patient and old records reviewed Mode of arrival: ambulatory Limitations: no limitations History of Present Illness HPI narrative: 62 yo female with PMH of arthritis, GERD, HLD here with c/o R sided thoracic back pain hurts to move and touch without known trauma radiates down arm, also c/o R knee pain hurts to walk. She also c/o R head and R ear pain. Pain is on entire R side of body but no numbness or weakness. She notes symptoms > 1 week. She was worried there was something in the head. She denies whiplash or trauma to the neck. MD complaint: R sided body pain, no trauma Onset (ago): week(s) (2) Location: head, chest, back, right, upper extremity and lower extremity Severity: moderate Quality: aching, dull and constant Pain Consistency: intermittent Relieving factors: rest Exacerbating factors: movement Associated symptoms: headaches Treatments prior to arrival: none Related Data Home Medications Medication Instructions Recorded Confirmed omega-3 fatty acids 1,000 mg 1,000 mg PO DAILY 05/25/21 11/24/22 capsule (Fish Oil Concentrate) aspirin 81 mg tablet,delayed 81 mg PO DAILY 04/22/23 release Previous Rx's Medication Instructions Recorded lidocaine 1.8 % topical patch 1 patch topical DAILY 30 days #30 08/06/21 ea ibuprofen 800 mg tablet 800 mg PO TID #21 tabs 04/22/23 hydrocortisone-acetic acid 1 %-2 % 4 drp otic (ear) left TID 7 days 08/31/23 ear drops #10 mL amoxicillin 875 mg-potassium 1 tab PO BID 10 days #20 tabs 09/05/23 clavulanate 125 mg tablet naproxen 500 mg tablet 500 mg PO BID PRN pain #14 tabs 09/05/23 prednisone 20 mg tablet 20 mg PO DAILY 5 days #5 tabs 09/05/23 diazepam 5 mg tablet (Valium) 5 mg PO BID PRN muscle spasm #10 09/28/23 tabs lidocaine 5 % topical patch 1 patch topical DAILY #30 ea 09/28/23 Allergies Allergy/AdvReac Type Severity Reaction Status Date / Time atorvastatin AdvReac Mild myalgia Verified 09/28/23 08:09 Review of Systems 2 Review of Systems: Constitutional : No Fever, No Chills, No Fatigue ENT/Mouth : No sore throat, No Rhinorrhea Eyes: No Eye Pain, No Swelling, No Redness Cardiovascular : No Chest Pain, No SOB, No Dyspnea on Exertion Respiratory : No Cough, No Sputum Gastrointestinal : No Nausea, No Vomiting, No Diarrhea, No abdominal Pain Genitourinary : No Dysuria, No Urinary Frequency, No Hematuria, Musculoskeletal : pos joint pain, pos Myalgias, No Joint Swelling Skin : No Skin Lesions, No rash Neuro : No Weakness, No Numbness, No Dizziness, positive Headache Psych : No Anxiety/Panic, No Depression Heme/Lymph: No Bruising, No Bleeding,No Lymphadenopathy Endocrine : No Polyuria, No Polydipsia All other systems reviewed and are negative [facility] Past Medical History Attestation statement: The following information was validated with the patient. Source: old records reviewed Medical History Osteoarthritis of right knee Right knee pain Obese Constipation by delayed colonic transit Pure hypercholesterolemia Hypovitaminosis D GERD (gastroesophageal reflux disease) Surgical History History of laparoscopic cholecystectomy History of hysterectomy Family History Family History Father Heart disease Mother Diabetes Hypertension Heart valve replaced Brother Myocardial infarction Maternal Grandmother No problems noted. Maternal Grandfather No problems noted. Paternal Grandmother Colon cancer Paternal Grandfather No problems noted. Social History Social History Housing: House Alcohol intake: current Alcohol intake frequency: holidays/special occasions only Alcohol type: wine Patient Tobacco Use Status: Never used Tobacco e-Cigarette/Vaping Use: Never Used Second Hand Smoke Exposure: No Advance Directives: No service: No Current occupational status: employed Current occupation: [employer] Current occupational exposures/hazards: No Cognitive needs: No Hearing needs: No Vision needs: Yes (Glasses) Physical Exam ED Vital Signs: Vital Signs - 24 hr 09/28/23 08:09 09/28/23 11:26 09/28/23 14:50 Temperature 97.5 F 98.1 F 97.8 F Pulse Rate 79 87 68 Respiratory Rate 18 18 18 Blood Pressure 175/94 H 206/83 H 143/65 H Pulse Oximetry 96 96 94 Oxygen Delivery Method Room Air Room Air Room Air 09/28/23 15:20 Temperature 97.6 F Pulse Rate 68 Respiratory Rate 16 Blood Pressure 128/65 Pulse Oximetry 99 Oxygen Delivery Method Room Air BMI result Body Mass Index 31.4 Appearance: Alert. Oriented X3. No acute distress. Eyes: Pupils equal, round and reactive to light. ENT: Pharynx normal. TMs normal no signs of infection. Neck: Normal inspection. Neck supple. CVS: Normal heart rate and rhythm. Pulses normal. Respiratory: No respiratory distress. Breath sounds normal. Abdomen: Soft and nontender. Back: R posterior R thoracic lateral back pain reproduces pain near rhomboids Skin: Skin warm and dry. Normal skin color. Normal skin turgor. Extremities: No lower extremity edema. No calf ttp Neuro: Oriented X 3. No motor deficit. No sensory deficit. CN2-12 intact Course Course Course Narrative: This is an RME: Additional HPI, ROS, PE not included below will be deferred to primary provider. This is a 62-year-old female, with a past medical history of GERD, osteoarthritis, presenting to the emergency department, with complaints of right-sided body pain x2 weeks. Patient reports that she has right-sided headache right ear pain, abdominal pain, rib pain for the last 2 weeks. She went to an urgent care. Patient is neurologically intact however patient reporting throbbing sensation in her head, blood pressure elevated at 206/83, EKG as well as head scan ordered in addition to all the blood work. Troponin also added to previous blood work. Plan: Labs, EKG, CT head, viral swabs, further ER evaluation needed. Medications Administered Discontinued Medications Generic Name Dose Route Start Last Admin Trade Name Freq PRN Reason Stop Dose Admin Acetaminophen 975 mg 09/28/23 13:49 09/28/23 13:59 Acetaminophen 325 Mg Tablet PO 09/28/23 13:50 975 mg ONCE ONE Administration Diazepam 5 mg 09/28/23 13:49 09/28/23 13:59 Diazepam 2 Mg Tablet PO 09/28/23 13:50 5 mg ONCE ONE Administration Medical Decision Making Medical Decision Making MDM Narrative: 62 yo female with PMH of arthritis, GERD, HLD not on HTN medications here with 2 weeks of R ear pain, neck pain, R rib and thoracic pain, R knee pain and overall R side pain. She is not toxic appearing, neuro and pulses intact. At this time basic labs, CT head is negative, she has no focal deficits, pain is reproduceable. She has no swelling or signs of infection there is no swelling to suggest VTE. Pulses are intact doubt ischemia. No signs of infection at this time. Differential Diagnosis Differential Diagnoses: The differential diagnosis associated with the presentation includes mass, HTN, pain, doubt ischemia or infection no unilateral swelling doub VTE Admission/Observation Consideration of admission/observation: Escalation of care including admission/observation considered BP decreased work up negative feels much better 2 weeks negative stable for DC Lab Data MDM Lab Attestation statement: I reviewed the patient's lab results. 09/28/23 08:27 09/28/23 08:27 Labs: Lab Results 09/28/23 09/28/23 Range/Units 08:27 10:56 WBC 7.3 (4.8-10.8) X10*3/uL RBC 4.67 (4.20-5.50) X10*6/uL Hgb 13.7 (12.0-16.0) g/dl Hct 41.4 (37.0-47.0) % MCV 88.7 (80.0-98.0) fL MCH 29.3 (27.0-33.0) pg MCHC 33.1 (31.0-35.0) g/dl RDW 12.1 (11.0-16.0) % Plt Count 396 (160-400) X10*3/uL MPV 9.5 (9.4-12.3) fL Immature Gran % (Auto) 0.4 (0.0-0.4) % Neut % (Auto) 64.8 (45-73) % Lymph % (Auto) 25.3 (20-40) % [place] % (Auto) 7.3 (2-11) % Eos % (Auto) 1.4 (0-4) % Baso % (Auto) 0.8 (0-2) % Lymph # (Auto) 1.8 (1.2-4.9) X10*3/uL [place] # (Auto) 0.5 (0.1-1.2) X10*3/uL Eos # (Auto) 0.1 (0.0-0.4) X10*3/uL Baso # (Auto) 0.1 (0.0-0.2) X10*3/uL Abs Immat Gran (auto) 0.03 (0.00-0.03) X10*3/uL Absolute Neuts (auto) 4.7 (2.0-8.3) x10*3/uL Absolute Nucleated RBC 0.000 (0.0-0.012) X10*3/uL Nucleated RBC % (auto) 0.0 (0.0-0.2) /100WBC Sodium 142 (135-145) mmol/L Potassium 4.4 (3.3-5.1) mmol/L Chloride 108 (96-108) mmol/L Carbon Dioxide 26 (22-29) mmol/L Anion Gap 12 (12-20) BUN 13 (9-16) mg/dL Creatinine 0.82 (0.5-1.4) mg/dL Estim Creat Clear Calc 72.2 Estimated GFR > 60 Random Glucose 116 H (60-115) mg/dL Calcium 9.6 (8.4-10.2) mg/dL Total Bilirubin 0.3 (0.0-1.0) mg/dL AST 20 (5-31) U/L ALT 22 (0-31) U/L Alkaline Phosphatase 71 (39-117) U/L Troponin I High Sens < 2.7 (<3.5-17.0) ng/L Total Protein 7.8 (6.5-8.0) g/dL Albumin 4.1 (3.5-5.0) g/dL Urine Color Yellow Urine Appearance Clear Urine pH 8.0 (5.0-9.0) Ur Specific Rena Lara 1.010 (1.005-1.025) Urine Protein Negative (Neg-Trace) mg/dL Urine Glucose (UA) Negative (Negative) mg/dL Urine Ketones Negative (Negative) mg/dL Urine Blood Negative (Negative) Urine Nitrite Negative (Negative) Ur Leukocyte Esterase Negative (Negative) Influenza Type A (PCR) NEGATIVE (Negative) Influenza Type B (PCR) NEGATIVE (Negative) RSV RNA Qual (PCR) NEGATIVE (Negative) SARS-CoV-2 RNA (RT-PCR) NEGATIVE (Negative) Independent Interpretation I performed an independent interpretation of an: EKG, Plain X-Ray (normal ) and CT Scan (normal ) Interpretation: Rate: 92 Rhythm: NSR [place]: normal Normal P waves. Normal FIGUEROA. Normal QRS complex. ST T wave : normal no ANTHONY, nonspecific lateral leads qTC: 435 prior studies: no acute ischemia The study has been interpreted contemporaneously by me. . Radiology Impression Discussion of test interpretation with radiology: I have reviewed the radiologist's reading. External Record Review External record reviewed: Outpatient record Prescription Management I considered prescription management with: Pain Medication and Other Discharge Plan Discharge Clinical Impression: Rib pain on right side Headache Qualifiers: Headache type: unspecified Headache chronicity pattern: acute headache I ntractability: not intractable Qualified Code(s): R51.9 - Headache, unspecified Back pain, thoracic Qualifiers: Chronicity: acute Back pain laterality: right Qualified Code(s): M54.6 - Pain in thoracic spine Patient Disposition: Home, Self-Care Instructions: Acute Headache (ED), Thoracic Pain (ED), Back Pain (ED) Additional Instructions: normal xray, normal CT head, labs normal BP came down without medications repeat blood pressure check with your doctor in 2 days return for worsening pain, numbness, weakness, or any other concerns Prescriptions: New lidocaine 5 % adhesive patch,medicated 1 patch topical DAILY Qty: 30 0RF Rx Instructions: leave on most painful area for up to 12 hrs diazepam [Valium] 5 mg tablet 5 mg PO BID PRN (Reason: muscle spasm) Qty: 10 0RF Rx Instructions: partial fill is okay No Action hydrocortisone-acetic acid 1-2 % drops 4 drp otic (ear) left TID 7 Days Qty: 10 0RF lidocaine 1.8 % adhesive patch,medicated 1 patch topical DAILY 30 Days Qty: 30 0RF Rx Instructions: leave on most painful area for up to 12 hrs omega-3 fatty acids [Fish Oil Concentrate] 1,000 mg capsule 1,000 mg PO DAILY prednisone 20 mg tablet 20 mg PO DAILY 5 Days Qty: 5 0RF naproxen 500 mg tablet 500 mg PO BID PRN (Reason: pain) Qty: 14 0RF amoxicillin-pot clavulanate 875-125 mg tablet 1 tab PO BID 10 Days Qty: 20 0RF aspirin 81 mg tablet,delayed release (DR/EC) 81 mg PO DAILY ibuprofen 800 mg tablet 800 mg PO TID Qty: 21 0RF Rx Instructions: Take with food. Stand Alone Forms: Work/School Release
--- NOTE | 2023-09-28 11:35 | ECG_ITS ---
Test Reason : body aches Blood Pressure : / mmHG Vent. Rate : 071 BPM Atrial Rate : 071 BPM P-R Int : 118 ms QRS Dur : 078 ms QT Int : 402 ms P-R-T Axes : 024 045 049 degrees QTc Int : 436 ms Normal sinus rhythm Normal ECG When compared with ECG of 12-OCT-2021 07:45, No significant change was found Referred By: Lyndsay Bourne Electronically Signed By:TRAVIS HUFF
[2023-09-28 11:40] LABS: Influenza A PCR NEGATIVE (Negative); Influenza B PCR NEGATIVE (Negative); Resp Syncy Virus RNA Qual PCR NEGATIVE (Negative); SARS COV2 PCR INHOUSE NEGATIVE (Negative)
[2023-09-28 12:13] LABS: Troponin-I High Sensitivity < 2.7 ng/L (<3.5-17.0)
[2023-09-28] MEDS: Acetaminophen 325 MG TABLET 975 MG PO (13:59)
[2023-09-28] MEDS: diazePAM 2 MG TABLET 5 MG PO (13:59)
[2023-09-28 14:50] VITALS: BP 143/65; PULSE 68; RESP 18; TEMP 36.6; O2SAT 94
[2023-09-28 15:20] VITALS: BP 128/65; PULSE 68; RESP 16; TEMP 36.4; O2SAT 99
--- NOTE | 2023-09-28 15:21 | MHC.EDTECH ---
THIS PCT ASSUMED CARE OF PATIENT AT 1500 ,VITALS TAKEN ,PT RESTING QUIETLY IN BED .
[2023-09-28 16:18] VITALS: BP 128/65; PULSE 68; RESP 16; TEMP 36.4; O2SAT 99
== END 2023-09-28 16:18 | disposition home or self-care (01) ==
PROVIDERS: Physician Assistant Medical; Emergency Provider Emergency Medicine; PCP Internal Medicine
DX: R07.81 Pleurodynia (principal); R51.9 Headache, unspecified; M54.6 Pain in thoracic spine; Z11.52 Encounter for screening for COVID-19; Z20.828 Contact with and (suspected) exposure to other viral communicable diseases
CPT/HCPCS: 0241U; 36415; 70450; 71101; 80053; 81003; 84484; 85025; 93005; 99284

== ENCOUNTER → 2023-09-28 11:35 | Outpatient (BNV) | payer BC, SELFPAY | PROVIDERS: Emergency Provider Emergency Medicine; PCP Internal Medicine; Visit Provider Internal Medicine | DX: R94.31 Abnormal electrocardiogram [ECG] [EKG] (principal) | CPT/HCPCS: 93010 ==

== ENCOUNTER 2023-10-03 08:21 | Outpatient (AMB) | payer BC, SELFPAY ==
--- NOTE | 2023-10-03 08:21 | MHC.PC.OV ---
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 Accompanied by: Self / Same As Patient Allergies atorvastatin Adverse Reaction (Mild, Verified 10/03/23 09:58) myalgia Medication List - Last Reconciled 10/03/23 by Analisa Dominguez MD aspirin 81 mg PO DAILY hydrocortisone-acetic acid 1-2 % 4 drps otic (ear) left TID 7 days ibuprofen 800 mg PO TID lidocaine 5% 1 patch topical DAILY omega-3 fatty acids (Fish Oil Concentrate) 1,000 mg PO DAILY valacyclovir 500 mg PO BID 5 days Tobacco use date assessed: 10/03/23 Fall risk assessment: No Falls in past year Last assessed Fall Risk: 10/03/23 Dental Screening Dental Screen Date: 10/03/23 Did you have a dental visit in the last 12 months?: Yes Did you have a dental problem in the last 6 months where you did not have access to dental care?: No Was dental information given to patient?: Patient has dentist HPI HPI Comments History of Present Illness Details This is a 62-year-old female that comes today for hospital discharge follow-up with discharge date 09/28/2023 due to feeling right side pain that started today that she went to ER. Head CT was done and was negative. Also x-ray of right ribs was unremarkable. Labs were also done showing no significant abnormality. She does complain of right hip pain and I will order an x-ray. She also complains of some vaginal itchiness and has vesicle like lesions around vulva that as per patient or itchy. 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 For vaginal pruritus we will refer her to OBGYN. She also has history of hemorrhoids and has blood in the stools and I will refer her to Gastroenterology. Hemoglobin was within normal limits at ER. Last colonoscopy was 2018. No chest pain or shortness of breath. Blood pressure elevated and will be recheck in 3 weeks by nurse navigator. [facility] Medical History (Updated 10/03/23 @ 09:59 by Analisa Dominguez MD) Osteoarthritis of right knee Right knee pain Obese Constipation by delayed colonic transit Pure hypercholesterolemia Hypovitaminosis D GERD (gastroesophageal reflux disease) Surgical History History of tooth extraction History of laparoscopic cholecystectomy History of hysterectomy Family History Father Heart disease Mother Diabetes Hypertension Heart valve replaced Brother Myocardial infarction Maternal Grandmother No problems noted. Maternal Grandfather No problems noted. Paternal Grandmother Colon cancer Paternal Grandfather No problems noted. Social History Housing: House Alcohol intake: current Alcohol intake frequency: holidays/special occasions only Alcohol type: wine Patient Tobacco Use Status: Never used Tobacco e-Cigarette/Vaping Use: Never Used Second Hand Smoke Exposure: No service: No Current occupational status: employed Current occupation: [employer] Current occupational exposures/hazards: No Cognitive needs: No Hearing needs: No Vision needs: Yes (Glasses) Questionnaire PHQ-9 Over the last 2 weeks, how often have you been bothered by any of the following problems? 1. Little interest or pleasure in doing things: not at all 2. Feeling down, depressed, or hopeless: not at all 3. Trouble falling or staying asleep, or sleeping too much: not at all 4. Feeling tired or having little energy: not at all 5. Poor appetite or overeating: not at all 6. Feeling bad about yourself - or that you are a failure or have let yourself or your family down: not at all 7. Trouble concentrating on things, such as reading the newspaper or watching television: not at all 8. Moving or speaking so slowly that other people could have noticed. Or the opposite - being so fidgety or restless that you have been moving around a lot more than usual: not at all 9. Thoughts that you would be better off or of hurting yourself in some way: not at all Total score: 0 Depression Screening Interpretation: Negative Depression Screening Done: Yes 73649 - PHQ-9 Billing: Yes Source: Developed by Neeru Valadez.W. Nicolas, Lalo Murcia and colleagues, with an educational terrance from [employer]. Thrive Questionnaire Date Thrive assessed: 10/03/23 I am a: Patient What is your living situation today?: I have a steady place to live Within the past 12 months, did the food you bought not last and you didn't have the money to get more?: Never true Within the past 12 months, did you worry whether your food would run out before you got money to buy more?: Never true Do you have trouble paying for medicines?: No Do you have trouble getting transportation to medical appointments?: No Do you have trouble paying your heating and electricity bill?: No Do you have trouble taking care of your child, family member or friend?: No Do you have trouble with day-to-day activities such as bathing, preparing meals, shopping, managing finances, etc.?: No Are you currently unemployed and looking for a job?: No Are you interested in more education?: No Please select the resources that you would like help with: None Currently or been in a relationship where the following occur: no concerns reported THRIVE Score: 0 AUDIT C Alcohol Use Questionnaire (AUDIT-C) 1. How often do you have a drink containing alcohol?: Monthly or less 2. How many drinks containing alcohol do you have on a typical day when you are drinking?: 1 or 2 3. How often do you have six or more drinks on one occasion?: Never Total Score: 1 Score Reviewed/Action Taken: No JILLIAN-7 AMB Questionnaire JILLIAN-7 Date JILLIAN - 7 assessed: 10/03/23 Feeling nervous, anxious, or on edge: 0 = Not at all Not being able to stop or control worryin = Not at all Worrying too much about different things: 0 = Not at all Trouble relaxin = Not at all Being so restless that it is hard to sit still: 0 = Not at all Becoming easily annoyed or irritable: 0 = Not at all Feeling afraid as if something awful might happen: 0 = Not at all Total JILLIAN-7 score (0-4 normal; 5-9 mild; 10-14 moderate; 15-21 severe): 0 Source: Developed by Drs. Yasir Calero, Neeru B.Lalo Oneal and colleagues, with an educational terrance from [employer]. JILLIAN-7 Assessment Billing JILLIAN-7 Assessment Tool: JILLIAN-7 Assessment 65767 Review of Systems Const All systems reviewed & are unremarkable except as noted in HPI and below Eyes Reports no additional complaints, Denies change in vision and Denies other visual disturbances Card Denies chest pain at rest, Denies chest pain with activity, Denies edema, Denies irregular heart rhythm, Denies claudication, Denies dyspnea, Denies dyspnea on exertion, Denies orthopnea, Denies paroxysmal nocturnal dyspnea and Denies slow heart rate Resp Denies cough, Denies dyspnea and Denies dyspnea on exertion GI Denies abdominal pain, Reports hematochezia, Denies change in bowel habits, Denies excessive flatus, Denies nausea and Denies vomiting Denies urinary incontinence, Denies urinary hesitancy and Denies urinary urgency Musc Denies atrophy, Denies deformity, Reports arthralgias and Denies limited range of motion Physical exam (Primary Care) Vital Signs: Last Vital Signs BP 160/90 H 10/03/23 08:22 BMI result Body Mass Index 31.6 Tobacco/Smoking Status: Tobacco use Status Tobacco use date assessed 10/03/23 10/03/23 08:28 Patient Tobacco Use Status Never used Tobacco 10/03/23 08:28 e-Cigarette/Vaping Use Never Used 10/03/23 08:28 PHQ-9: PHQ-9 Score PHQ-9: Total score 0 10/03/23 08:49 Depression Screening Interpretation: Negative Thrive Assessment: Date of Thrive Assessment Date Thrive assessed 10/03/23 10/03/23 08:28 Currently or been in a relationship where the following occur: no concerns reported Const Orientation/consciousness: patient oriented x3 Resp Effort & Inspection: normal respiratory effort Auscultation: clear to auscultation bilaterally Cardio Jugular venous distension: no JVD Rate: regular rate Rhythm: regular rhythm Heart sounds: S1 normal heart sound present and S2 normal heart sound present Neuro General: patient oriented x3 and no focal motor deficits Extrem General: Yes full ROM Psych Appearance: grossly normal Assessment and Plan Assessment & Plan (1) Hospital discharge follow-up: Code(s): Z09 - Encounter for follow-up examination after completed treatment for conditions other than malignant neoplasm Plan: This is a 62-year-old female with Hospital discharge date 09/28/2023 due to pain in right side of the body. Head CT was negative. Labs show no significant abnormality. X-ray of the right ribs was also within normal limits. Now has right hip pain and x-ray will be ordered. (2) Bleeding hemorrhoids: Code(s): K64.9 - Unspecified hemorrhoids Plan: Hemoglobin normal. Last colonoscopy 2019. Referred non urgently to Gastroenterology. (3) Right hip pain: Code(s): M25.551 - Pain in right hip Plan: X-ray of right hip ordered. (4) HSV-2 infection: Code(s): B00.9 - Herpesviral infection, unspecified Plan: Start valacyclovir. This is her 1st episode. (5) Vaginal pruritus: Code(s): N89.8 - Other specified noninflammatory disorders of vagina Plan: Referred to OBGYN at [facility]. Orders: Orders Complete Blood Count Auto Diff Today D64.9 - Anemia, unspecified, K64.9 - Unspecified hemorrhoids Comprehensive Met. 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
[2023-10-03 08:22] VITALS: BP 160/90; BMI 31.6
[2023-10-03 09:57] VITALS: BP 160/90
== END 2023-10-03 08:48 | disposition home or self-care (01) ==
LOC: HO.HMGH 08:21
PROVIDERS: PCP Internal Medicine; Visit Provider Internal Medicine
DX: M25.551 Pain in right hip (principal); K64.9 Unspecified hemorrhoids; B00.9 Herpesviral infection, unspecified; N89.8 Other specified noninflammatory disorders of vagina
CPT/HCPCS: 99214

== ENCOUNTER 2023-11-03 11:24 | Outpatient (AMB) | payer BC, SELFPAY ==
--- NOTE | 2023-11-03 11:28 | A.OFFVIS_ITS ---
Vital Signs 11/03/23 11:49 Height 5 ft 4 in Weight 182 lb BMI 31.2 BP 156/75 H Blood Pressure Location Lt brachial Position Sitting Pulse 72 Intake Visit Reasons: Unspecified hemorrhoids Intake Note: Patient follow up for Unspecified hemorrhoids. Patient cc: right lower of abdominal discomfort on and off, hemorrhoids when she push a lot for BM, medication for constipation is helping her. Denies any other GI issues. 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 ?CHRONIC ILLNESSES: hypertension, hyperlipidemia, gastroesophageal reflux disease (GERD), hx of kidney stones, peptic ulcer disease ?LABS IN [place] : 07/2019 reviewed. ?IMAGING STUDIES: 08/07/19 abdominal ultrasound showed: ? Supraumbilical diastasis and bulge versus small hernia. This could be ? better assessed with CT scan if clinically indicated. ?11/22/18 CT colonography showed: ?Small amount of adherent stool is seen within the colon. There is ? however a small 6 mm nodular density along the posterior wall of the ? mid sigmoid colon which does not appear to significantly change in ? position between the supine and prone images. Although this could ? represent nonmobile adherent stool, a small 6 mm polyp cannot be ? excluded. Would clinically correlate with the recent incomplete ? colonoscopy to determine if the colonoscopy was able to extend through ? the sigmoid colon and possibly may have evaluated this area. I do not ? appreciate any more suspicious nonmobile abnormalities in the more proximal colon. ?ENDOSCOPIC STUDIES: 11/2018 EGD and colonoscopy showed: ?Endoscopy Findings: ?LARYNX: Changes suggestive of LPRD ?ESOPHAGUS: Focal esophagitis with irregular Z line ?STOMACH: Healing 1.5 cms ulcer/erosion in the pre-pyloric area - biopsied. Mild gastric erythema. ?DUODENUM: Normal ?Colonoscopy Findings: No polyps seen. ?Incomplete colonoscopy till proximal TC. ?Severe diverticulosis seen in the left colon ?Moderate hemorrhoids on antegrade withdrawl - unable to perform a retroflexed exam despite multiple attempts. ?Plan: ?Await pathology results. ?Proceed with CTC today to evaluate the right colon. ?Continue present medications (Senna- Docusate for constipation) ?Patient has an appointment on 12/20/18 in the GI Clinic with William Bolton M.D.-. ?Repeat Colonoscopy/CTC in 10 years for colon cancer screening if CTC today is negative. William Bolton 11/23/2018 03:48:50 PM EDT > Patient called and biopsy findings and results of CT Colonography were reviewed with her. She noted some lower abdominal cramps after the procedure - slowly improving. Prescription sent for Omeprazole 20 mg once daily. ?Biopsies showed: ?A. Stomach, antral ulcer, biopsy: Antal mucosa with chronic inactive gastritis and ? superimposed reactive/regenerative epithelial changes; negative for intestinal ? metaplasia, dysplasia, carcinoma, and Helicobacter pylori. ? B. Gastric, antrum, biopsy: Antral mucosa with chronic inactive gastritis and ? superimposed reactive/regenerative epithelial changes; negative for intestinal ? metaplasia, dysplasia, carcinoma, and Helicobacter pylori. ? C. Esophagus, distal, biopsy: Corpus-type mucosa with mild chronic inflammation; ? negative for intestinal metaplasia, dysplasia, and carcinoma. ?TODAY'S VISIT: Patient cc: right lower of abdominal discomfort on and off, hemorrhoids when she push a lot for BM, medication for constipation is helping her. Denies any other GI issues. Complains of intermittent throbbing pains in the RLQ radiating to the back. Notes pain if she takes red meat or fried foods Pain can last for a few days and resolve. Has been using the patches and Ibuprofen if pain gets severe. Denies change in appetite and has gained weight. Notes constipation and takes Senna Hemorrhoids come out when she strains Has to use hemorrhoid cream One episode of bleeding from hemorrhoids 2 -3 weeks ago. Had hysterectomy at 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 Blood was BRB - initially separate then mixed with the stool and little clots. Noted some rectal discomfort and was prescribed some cream and Tucks pads with sone improvement. Bleeding lasted for a month and then subsided spontaneously. She is constipated and has intermittent straining and takes a stool softener. ?Denies recurrent rectal bleeding. ?Continues to have constipation. Has a BM twice a day with straining. ?Has normal BMs on some days. ?Takes Sennakot, prune juice and a stool softeners which are helpful. ?Notes heartburn once in a while depneding on what she is eating. ?Denies recent black stools or rectal bleeding. ?Patient denies major cardiac or pulmonary problems, loud snoring or sleep apnea ?Denies problems with anesthesia in the past. ?Denies being on chronic anticoagulation. Patient denies known family history of colon polyps, colon cancer or other GI malignancies. ?PAST GI HISTORY BY REVIEW OF MEDICAL RECORDS: ?Patient was last seen on 11/14/2018: ?Assessments ?1. Rectal bleeding - K62.5 (Primary) ?2. Family history of colonic polyps - Z83.71 ?3. Chronic constipation - K59.09 ?4. Gastroesophageal reflux disease, esophagitis presence not specified - K21.9 ?58 YF with hypertension, hyperlipidemia, gastroesophageal reflux disease (GERD), hx of kidney stones, peptic ulcer disease ?seen for chronic constipation and 2 week history of rectal bleeding. Likely cause of rectal bleeding is rectal irritation from straining and passage of hard stool. Other possibilities include hemorrhoids or minor diverticular bleed. Since her last colonoscopy was performed 9 years ago, I would recommend proceeding with repeat colonoscopy with MAC. ?Same-day EGD for evaluation of abdominal pain and history of GERD. Procedure and potential complications were reviewed with the patient. She was advised to start taking senna for constipation. ?Treatment ?1. Rectal bleeding ?Start Dulcolax Tablet Delayed Release, 5 mg, 2 tablets, Orally, twice a day, 1 day, 4 Tablet, Refills 0 ?Start TriLyte Solution Reconstituted, 420 GM, as directed, Orally, as directed, 1 day, 1 bottle, Refills 0 ? IMAGING: Colonoscopy ?2. Chronic constipation ?Start Senna-Docusate Sodium Tablet, 8.6-50 MG, 1 tablet in the evening as needed, Orally, Once a day, 30 day(s), 30, Refills 4 ?3. Gastroesophageal reflux disease, esophagitis presence not specified ?Notes: Same-day EGD for evaluation of abdominal pain and history of GERD [facility] Medical History (Updated 11/03/23 @ 12:38 by William Bolton MD) Osteoarthritis of right knee Right knee pain Obese Constipation by delayed colonic transit Pure hypercholesterolemia Hypovitaminosis D GERD (gastroesophageal reflux disease) Surgical History History of tooth extraction History of laparoscopic cholecystectomy History of hysterectomy Family History Father Heart disease Mother Diabetes Hypertension Heart valve replaced Brother Myocardial infarction Maternal Grandmother No problems noted. Maternal Grandfather No problems noted. Paternal Grandmother Colon cancer Paternal Grandfather No problems noted. Social History Housing: House Alcohol intake: current Alcohol intake frequency: holidays/special occasions only Alcohol type: wine Patient Tobacco Use Status: Never used Tobacco e-Cigarette/Vaping Use: Never Used Second Hand Smoke Exposure: No service: No Current occupational status: employed Current occupation: [employer] Current occupational exposures/hazards: No Cognitive needs: No Hearing needs: No Vision needs: Yes (Glasses) Review of Systems Const All systems reviewed & are unremarkable except as noted in HPI and below Eyes Reports no additional complaints, Denies change in vision and Denies other visual disturbances Card Denies chest pain at rest, Denies chest pain with activity, Denies edema, Denies irregular heart rhythm, Denies claudication, Denies dyspnea, Denies dyspnea on exertion, Denies orthopnea, Denies paroxysmal nocturnal dyspnea and Denies slow heart rate Resp Denies cough, Denies dyspnea and Denies dyspnea on exertion GI Denies abdominal pain, Reports hematochezia, Denies change in bowel habits, Denies excessive flatus, Denies nausea and Denies vomiting Denies urinary incontinence, Denies urinary hesitancy and Denies urinary urgency Musc Denies atrophy, Denies deformity, Reports arthralgias and Denies limited range of motion Physical Exam Vital Signs: Last Vital Signs Pulse 72 11/03/23 11:49 BP 156/75 H 11/03/23 11:49 BMI result Body Mass Index 31.2 Const General: healthy appearing and no acute distress Nutritional Appearance: obese Orientation/consciousness: patient oriented x3 Limitations: no limitations HEENT Head: Yes normal to inspection Ears: hearing grossly normal bilaterally Eyes Sclerae: sclerae normal Pupils: Equal, round and reactive pupils present Neck Neck: Yes normal visual inspection Chest Chest palpation & inspection: normal inspection of the chest Resp Effort & Inspection: normal respiratory effort Auscultation: clear to auscultation bilaterally Cardio Palpation: normal PMI Rate: regular rate Rhythm: regular rhythm Heart sounds: S1 normal heart sound present, S2 normal heart sound present and no murmurs GI Palpation (GI): Soft to palpation, nontender and No hepatosplenomegaly present Auscultation: normal bowel sounds Rectal Exam - Female: deferred Skin General skin exam: no rashes or lesions noted Neuro General: patient oriented x3, gait normal and moves all extremities Cranial nerves: Yes Equal, round and reactive pupils present Psych Appearance: grossly normal Mental Status: mental status grossly normal Assessment & Plan Assessment & Plan (1) GERD (gastroesophageal reflux disease): Code(s): K21.9 - Gastro-esophageal reflux disease without esophagitis Category: Medical Qualifiers: Esophagitis presence: esophagitis presence not specified Qualified Code(s): K21.9 - Gastro-esophageal reflux disease without esophagitis (2) Constipation by delayed colonic transit: Code(s): K59.01 - Slow transit constipation Category: Medical (3) Bleeding hemorrhoids: Code(s): K64.9 - Unspecified hemorrhoids Category: Medical (4) Chronic RLQ pain: Code(s): R10.31 - Right lower quadrant pain; G89.29 - Other chronic pain Category: Medical Plan 62 YF with hypertension, hyperlipidemia, gastroesophageal reflux disease (GERD), hx of kidney stones, peptic ulcer disease followed in GI for chronic constipation and history of rectal bleeding. 11/2018 EGD and colonoscopy showed focal esophagitis with irregular Z line and a healing 1.5 cms ulcer/erosion in the pre-pyloric area. Gastric biopsies were positive for Helicobacter pylori and patient was treated with antibiotics. Same day colonoscopy was Incomplete till proximal TC due to severe diverticulosis in the left colon Moderate hemorrhoids on antegrade withdrawl - likely source for rectal bleeding. A CTC was performed and findings as noted above. 11/03/23 Complains of intermittent throbbing pains in the RLQ radiating to the back. Notes pain if she takes red meat or fried foods Pain can last for a few days and resolve. Has been using the patches and Ibuprofen if pain gets severe. Denies change in appetite and has gained weight. Notes constipation and takes Senna Obtain records from [facility] regarding gynecological surgery Pt was advised to schedule an Abd CT scan and fu in 3 month Hold off colonoscopy for now since she had a negative colon and CTC in 2019 Orders: Orders Creatinine Today G89.29 - Other chronic pain, R10.31 - Right lower quadrant pain CT abdomen pelvis w IV con Today G89.29 - Other chronic pain, R10.31 - Right lower quadrant pain Blood Urea Nitrogen Today G89.29 - Other chronic pain, R10.31 - Right lower quadrant pain Coding Level of Care Code Est Pt Level 4 (59100) Diagnoses Gastroesophageal reflux disease, unspecified whether esophagitis present K21.9 Esophagitis presence: esophagitis presence not specified Constipation by delayed colonic transit K59.01 Bleeding hemorrhoids K64.9 Chronic RLQ pain R10.31; G89.29 Time Spent (min) 20
[2023-11-03 11:49] VITALS: BP 156/75; PULSE 72; BMI 31.2
== END 2023-11-03 12:40 | disposition home or self-care (01) ==
PROVIDERS: PCP Internal Medicine; Visit Provider Internal Medicine Gastroenterology
DX: K21.9 Gastro-esophageal reflux disease without esophagitis (principal); K59.01 Slow transit constipation; K64.9 Unspecified hemorrhoids; R10.31 Right lower quadrant pain; G89.29 Other chronic pain
CPT/HCPCS: 99214

== ENCOUNTER → 2023-11-03 11:24 | Outpatient (BNVA) | payer BC, SELFPAY | PROVIDERS: PCP Internal Medicine; Visit Provider Internal Medicine Gastroenterology ==

== ENCOUNTER 2023-11-28 08:59 | Outpatient (AMB) | payer BC, SELFPAY ==
--- NOTE | 2023-11-28 09:02 | MHC.PC.OV ---
Vital Signs 11/28/23 09:03 Height 5 ft 4 in Weight 184 lb BMI 31.6 BP 122/80 Blood Pressure Location Lt brachial Position Sitting Intake Visit Reasons: physical exam Intake Note: Patient here for a physical exam Crnp Required: No Accompanied by: Self / Same As Patient Allergies atorvastatin Adverse Reaction (Mild, Verified 11/28/23 09:19) myalgia Medication List - Last Reconciled 11/28/23 by Analisa Dominguez MD ascorbate calcium (vitamin C) 500 mg PO DAILY aspirin 81 mg PO DAILY hydrocortisone-acetic acid 1-2 % 4 drps otic (ear) left TID 7 days ibuprofen 800 mg PO TID lidocaine 5% 1 patch topical DAILY omega-3 fatty acids (Fish Oil Concentrate) 1,000 mg PO DAILY Tobacco use date assessed: 10/03/23 Fall risk assessment: No Falls in past year Last assessed Fall Risk: 11/28/23 Dental Screening Dental Screen Date: 10/03/23 HPI HPI Comments History of Present Illness Details This is a 63-year-old female that comes for her physical exam. Last mammogram was over a year ago. Has never had a bone density. Last colonoscopy was 2018 which was normal. No chest pain or shortness of breath. Complains of right ear discomfort and was sent to ENT. Also complains of daytime somnolence and severely dozing off while watching TV, sitting and reading, lying down to rest in the afternoon when circumstances permit and sitting quietly after lunch with an [place] score Scale of 12 and sleep study will be order. [facility] Medical History Osteoarthritis of right knee Right knee pain Obese Constipation by delayed colonic transit Pure hypercholesterolemia Hypovitaminosis D GERD (gastroesophageal reflux disease) Surgical History History of tooth extraction History of laparoscopic cholecystectomy History of hysterectomy Family History (Updated 11/28/23 @ 09:23 by Analisa Dominguez MD) Father Heart disease Mother Diabetes Hypertension Heart valve replaced Brother Myocardial infarction Maternal Grandmother No problems noted. Maternal Grandfather No problems noted. Paternal Grandmother Colon cancer Paternal Grandfather No problems noted. Sister Uterine cancer Social History Housing: House Alcohol intake: current Alcohol intake frequency: holidays/special occasions only Alcohol type: wine Patient Tobacco Use Status: Never used Tobacco e-Cigarette/Vaping Use: Never Used Second Hand Smoke Exposure: No service: No Current occupational status: employed Current occupation: [employer] Current occupational exposures/hazards: No Cognitive needs: No Hearing needs: No Vision needs: Yes (Glasses) Questionnaire Thrive Questionnaire Date Thrive assessed: 10/03/23 JILLIAN-7 AMB Questionnaire JILLIAN-7 Date JILLIAN - 7 assessed: 10/03/23 Source: Developed by Drs. Yasir Calero, Neeru Valenzuela, Lalo Murcia and colleagues, with an educational terrance from [email or web address]. Review of Systems Const All systems reviewed & are unremarkable except as noted in HPI and below Eyes Reports no additional complaints, Denies change in vision and Denies other visual disturbances Card Denies chest pain at rest, Denies chest pain with activity, Denies edema, Denies irregular heart rhythm, Denies claudication, Denies dyspnea, Denies dyspnea on exertion, Denies orthopnea, Denies paroxysmal nocturnal dyspnea and Denies slow heart rate Resp Denies cough, Denies dyspnea and Denies dyspnea on exertion Endo Denies cold intolerance Tamir/Lymph Denies easy bleeding and Denies easy bruising Aller/Immun Denies urticaria Physical exam (Primary Care) Vital Signs: Last Vital Signs BP 122/80 11/28/23 09:03 BMI result Body Mass Index 31.6 Tobacco/Smoking Status: Tobacco use Status Tobacco use date assessed 10/03/23 11/28/23 09:08 Patient Tobacco Use Status Never used Tobacco 11/28/23 09:08 e-Cigarette/Vaping Use Never Used 11/28/23 09:08 Thrive Assessment: Date of Thrive Assessment Date Thrive assessed 10/03/23 11/28/23 09:08 HENMT Head: Yes normal to inspection, Yes normocephalic and Yes atraumatic Ears: external ears normal General nose exam: Normal external nose present and No nasal discharge present Face and sinus: Yes sinuses nontender Mouth: lip normal Eyes General: appearance normal, both eyes and all related structures Eyelids: Yes eyelids normal Conjunctivae: conjunctivae normal Neck Neck: Yes normal visual inspection and Yes supple Resp Effort & Inspection: normal respiratory effort Auscultation: clear to auscultation bilaterally Cardio Jugular venous distension: no JVD Rate: regular rate Rhythm: regular rhythm Heart sounds: S1 normal heart sound present and S2 normal heart sound present GI Inspection: Yes normal to inspection Palpation (GI): Soft to palpation and nontender Auscultation: normal bowel sounds Extrem General: Yes full ROM Immunizations pneumoc 20-heidy conj-dip cr(PF) 0.5 mL IM syringe Performing Provider: Analisa Dominguez MD Performing Location: [facility] Administered by: AGNIESZKA Smith on 11/28/23 09:34 Dose Route Admin Location Dispensed Lot Number Expiration Date NDC Retail Service Representative 0.5 mL IM Left Deltoid 0.5 mL [id number] 11/08/24 7512-1516-64 [employer] VIS Given Date VIS Provided VIS Publication Date 11/28/23 Single Vaccine 21 Eligibility Eligibility Date Funding Source Not [facility] Eligible 11/28/23 Private Assessment and Plan Assessment & Plan (1) Physical exam: Code(s): Z00.00 - Encounter for general adult medical examination without abnormal findings Plan: Repeat in a year. Orders: Orders MM screening mammo BI Today Z12.31 - Encounter for screening mammogram for malignant neoplasm of breast XR DEXA axial skeleton Today N95.9 - Unspecified menopausal and perimenopausal disorder RT home sleep study Today R40.0 - Somnolence Lipid Panel Today E78.5 - Hyperlipidemia, unspecified Comprehensive [place]. Panel Fast Today Z00.00 - Encounter for general adult medical examination without abnormal findings Pneumococcal 20 Immunization Today Z23 - Encounter for immunization Referrals Ear/Nose/Throat Referral H92.01 - Otalgia, right ear Coding Level of Care Code Est Pt Prev Care >65y(82001) Diagnoses Physical exam Z00.00 Time Spent (min) 31
[2023-11-28 09:03] VITALS: BP 122/80; BMI 31.6
== END 2023-11-28 09:33 | disposition home or self-care (01) ==
PROVIDERS: Visit Provider Internal Medicine
DX: Z00.00 Encounter for general adult medical examination without abnormal findings (principal); Z23 Encounter for immunization
CPT/HCPCS: 90471; 90677; 99397

== ENCOUNTER 2023-11-28 09:42 | Outpatient (REF) | payer BC, SELFPAY ==
[2023-11-28 10:04] LABS: MANUAL DIFF FLAG NO
[2023-11-28 10:42] LABS: Basophils Absolute Auto 0.1 X10*3/uL (0.0-0.2); Eosinophils Absolute Auto 0.1 X10*3/uL (0.0-0.4); Eosinophils Percent Auto 1.8 % (0-4); Hematocrit 41.4 % (37.0-47.0); Hemoglobin 13.3 g/dl (12.0-16.0); Imm Gran Abs Auto 0.03 X10*3/uL (0.00-0.03); Imm Gran Pct Auto 0.4 % (0.0-0.4); Lymphocytes Absolute Auto 2.1 X10*3/uL (1.2-4.9); Lymphocytes Percent Auto 26.1 % (20-40); Mean Corpuscular HGB Conc 32.1 g/dl (31.0-35.0); Mean Corpuscular Volume 90.2 fL (80.0-98.0); Monocytes Absolute Auto 0.7 X10*3/uL (0.1-1.2); Monocytes Percent Auto 8.9 % (2-11); Neutrophils Absolute Auto 4.8 x10*3/uL (2.0-8.3); Neutrophils Percent Auto 61.8 % (45-73); Platelet Count 364 X10*3/uL (160-400); Red Blood Count 4.59 X10*6/uL (4.20-5.50); Red Cell Distribution Width 12.4 % (11.0-16.0); White Blood Count 7.8 X10*3/uL (4.8-10.8)
[2023-11-28 11:16] LABS: Alanine Aminotransferase 26 U/L (0-31); Albumin Level 4.2 g/dL (3.5-5.0); Alkaline Phosphatase 76 U/L (39-117); Anion Gap 13 (12-20); Aspartate Amino Transferase 20 U/L (5-31); Bilirubin Total 0.4 mg/dL (0.0-1.0); Blood Urea Nitrogen 12 mg/dL (9-16); Carbon Dioxide 27 mmol/L (22-29); Chloride 106 mmol/L (96-108); Cholesterol 226 mg/dL (<200); Estimated Glomerular Filt Rate > 60; Glucose Fasting 101 mg/dL (60-99); HDL Cholesterol 57 mg/dL (>40); Iron 65 mcg/dL (30-160); LDL Cholesterol Calculated 157 mg/dL (<100); Percent Iron Saturation 24 % (15-50); Potassium 4.5 mmol/L (3.3-5.1); Sodium 141 mmol/L (135-145); Total Iron Binding Capacity 276 mcg/dL (228-428); Total Protein 7.7 g/dL (6.5-8.0); Triglycerides 64 mg/dL (<150); Unsaturated Iron Binding 211 ug/dL
[2023-11-28 11:31] LABS: Vitamin D 25-OH Total 22.8 ng/mL (>30)
== END 2023-11-28 09:43 | disposition home or self-care (01) ==
LOC: HO.LAB 09:42
PROVIDERS: PCP Internal Medicine; Visit Provider Internal Medicine
DX: Z00.00 Encounter for general adult medical examination without abnormal findings (principal); D64.9 Anemia, unspecified; K64.9 Unspecified hemorrhoids; E55.9 Vitamin D deficiency, unspecified; K92.1 Melena; E78.5 Hyperlipidemia, unspecified
CPT/HCPCS: 36415; 80053; 80061; 82306; 83540; 85025

== ENCOUNTER 2024-01-05 10:33 | Outpatient (REF) | payer OTHER, SELFPAY ==
--- NOTE | ~2024-01-05 | MM_ITS ---
EXAMINATION: BONE DENSITOMETRY CLINICAL INDICATION: Unspecified menopausal and perimenopausal disorder. COMPARISON: Previous BD dated 11/04/2015 and baseline BD dated 03/11/2011. TECHNIQUE: Using a AF83 DXA System (software version: 13.1) manufactured by [employer], dual-energy x-ray absorptiometry was performed of the lumbar spine and left hip. The images are of good technical quality. Summary results are attached. FINDINGS: LEFT FEMUR, NECK: Current: BMD 0.910 g/cm2, Z-score 0.2, T-score -0.9, normal. Prior: BMD 0.875 g/cm2. Baseline: BMD 0.927 g/cm2. LEFT FEMUR, TOTAL: Current: BMD 0.866 g/cm2, Z-score -0.3, T-score -1.1, osteopenia, 3.2% decrease from previous, 6.0% decrease from baseline (<5% change is not significant). Prior: BMD 0.895 g/cm2. Baseline: BMD 0.921 g/cm2. AP SPINE L1-L4: Current: BMD 1.000 g/cm2, Z-score -0.5, T-score -1.5, osteopenia, 4.1% increase from previous, 3.8% decrease from baseline (<5% change is not significant). Prior: BMD 0.961 g/cm2. Baseline: BMD 1.040 g/cm2. IDENTIFIED RISK FACTORS: Menopause, hysterectomy, bilateral oophorectomy. HISTORY OF FRACTURE: None listed. MEDICATIONS: Vitamin D. MM/XR DEXA axial skeleton IMPRESSION: 1. DIAGNOSIS: Osteopenia based on the lowest T-score value of -1.5 in the lumbar spine applying World Health Organization criteria. 2. 10-YEAR FRACTURE RISK PREDICTION, FRAX: Major osteoporotic fracture (clinical spine, forearm, hip or shoulder) 4.2%. Hip fracture 0.3%. 3. Treatment Recommendations: NOF guidelines recommend consideration for treatment in postmenopausal women and men age 50 and older presenting with the following: -A hip or vertebral (clinical or morphometric) fracture. -T-score less than or equal to -2.5 at the femoral neck or spine after appropriate evaluation to exclude secondary causes. -Low bone mass at the hip or spine and a 10-year fracture probability by FRAX of greater than or equal to 3% for hip fracture or greater than or equal to 20% for major osteoporotic fracture based on the [place] adapted WHO algorithm. 4. Other Recommendations: All treatment decisions require clinical judgment and consideration of individual patient factors, including patient preferences, comorbidities, previous drug use, risk factors not captured in the FRAX model (e.g. frailty, falls, vitamin D deficiency, increased bone turnover, interval significant decline in bone density) and possible under or overestimation of fracture risk by FRAX. Additional medical evaluation for secondary cause of low bone mineral density may be appropriate. FUTURE SCAN RECOMMENDATION: People with diagnosed cases of osteoporosis or at high risk for fracture should have regular bone mineral density tests. For patients eligible for Medicare, routine testing is allowed once every 2 years. The testing frequency can be increased to one year for patients who have rapidly progressing disease, those who are receiving or discontinuing medical therapy to restore bone mass, or have additional risk factors.
--- NOTE | ~2024-01-05 | MM_ITS ---
EXAMINATION: MM SCREENING DIGITAL MAMMOGRAPHY, BILATERAL CLINICAL INFORMATION: Screening. Asymptomatic. COMPARISON: Mammography: 01/07/2018, 12/28/2016, 11/04/2015. Dating back to 2010. TECHNIQUE: Digital mammography is performed in craniocaudal and mediolateral oblique views along with computer-aided detection (CAD). FINDINGS: There are scattered areas of fibroglandular density (ACR BI-RADS breast composition Category b). There are subtle stable groups of calcifications in both breasts. These are unchanged from 2017 and 2015. There are no suspicious masses, new suspicious grouped calcifications, or areas of architectural distortion in either breast. The parenchymal pattern is stable from prior exams. There is no skin or axillary abnormality.
--- NOTE | ~2024-01-05 | MM_ITS ---
EXAMINATION: MM SCREENING DIGITAL BREAST TOMOSYNTHESIS, BILATERAL CLINICAL INFORMATION: Screening. Asymptomatic. COMPARISON: Mammography: This study is compared with prior exams dating back to 2017. TECHNIQUE: Digital breast tomosynthesis is performed in both the craniocaudal and mediolateral oblique views along with computer-aided detection (CAD). Synthesized 2D images are generated from the tomosynthesis. FINDINGS: There are scattered areas of fibroglandular density (ACR BI-RADS breast composition Category b). There are no significant masses, abnormal calcifications, or other abnormalities. Scattered benign calcifications are present in each breast. MM/MM tomosynthesis screening BI IMPRESSION: No mammographic evidence of malignancy. ASSESSMENT: BI-RADS BI-RADS 2 - Benign Findings RECOMMENDATION: Routine annual mammography screening. 1 year F/U This examination should not preclude the clinical evaluation of a suspicious palpable abnormality. This patient's information was entered into a reminder system with a target due date for their next mammogram.
== END 2024-01-05 10:34 | disposition home or self-care (01) ==
LOC: HO.MAMMO 10:33
PROVIDERS: PCP Internal Medicine; Visit Provider Internal Medicine
DX: Z12.31 Encounter for screening mammogram for malignant neoplasm of breast (principal); Z13.820 Encounter for screening for osteoporosis; Z78.0 Asymptomatic menopausal state
CPT/HCPCS: 77063; 77067; 77080

== ENCOUNTER → 2024-01-05 10:45 | Outpatient (BNV) | payer OTHER, SELFPAY | PROVIDERS: PCP Internal Medicine; Visit Provider Radiology Diagnostic Radiology | DX: Z12.31 Encounter for screening mammogram for malignant neoplasm of breast (principal) | CPT/HCPCS: 77063; 77067 ==

== ENCOUNTER → 2024-01-06 06:32 | Outpatient (BNV) | payer OTHER, SELFPAY | PROVIDERS: PCP Internal Medicine; Visit Provider Radiology Diagnostic Radiology | DX: R10.31 Right lower quadrant pain (principal) | CPT/HCPCS: 74176 ==

== ENCOUNTER → 2024-01-06 08:31 | Outpatient (REF) | payer OTHER, SELFPAY ==
--- NOTE | ~2024-01-06 | CT_ITS ---
EXAMINATION: CT ABDOMEN AND PELVIS WITHOUT CONTRAST CLINICAL INFORMATION: Right lower quadrant pain. History of gynecological tumor status post hysterectomy. By mouth contrast was administered. Per technologist note, IV access could not be established for contrast administration. COMPARISON: CT: Mammography abdomen pelvis 11/21/2018. TECHNIQUE: Multidetector volumetric imaging was performed from the superior aspect of the liver through the pubic symphysis. Sagittal and coronal reformatted images were obtained on the technologist's workstation. This CT examination was performed using dose optimization techniques as appropriate, variously including the following: *Automated exposure control *Adjustment of mA and/or kV according to patient size (this includes techniques or standardized protocols for targeted exams where dose is matched to indication/reason for exam; i.e. extremities or head) *Use of iterative reconstruction technique DLP: 351 mGy-cm FINDINGS: LUNG BASES: Lung bases appear clear bilaterally. No pleural effusion. Heart size is normal. No pericardial effusion. GE junction demonstrates a tiny type I hiatus hernia. LIVER, GALLBLADDER, AND BILIARY TREE: Liver is normal in size. There is diffuse fatty infiltration with focal fatty sparing of segments 4A and B. Unenhanced liver otherwise normal. Gallbladder is surgically absent. There is no biliary dilatation. PANCREAS: Stable appearance of the pancreas, with heterogeneous fatty replacement. SPLEEN: Unremarkable. ADRENAL GLANDS: Unremarkable. KIDNEYS AND URETERS: The kidneys are normal in size, shape, and attenuation. No hydronephrosis, hydroureter, or calculi seen. No perinephric stranding. BLADDER: Unremarkable. GASTROINTESTINAL TRACT: Moderate diverticulosis of the sigmoid colon, with milder changes in the descending colon. No active inflammation. No bowel wall thickening. A periumbilical left lateral abdominal wall hernia contains a nonobstructed loop of small bowel, with the hernia sac measuring 6.0 cm, and the diastases measuring 4.5 cm. Just inferior to this, a [place] infra umbilical rectus midline hernia is present containing fat, a loop of transverse colon, and nonobstructed loops of small bowel. The hernia sac measures approximately 10.9 cm in diameter, and the diastases measures approximately 4.8 cm. -Stomach is somewhat decompressed. The duodenum and small bowel have a normal appearance. -A normal appendix is visualized. ABDOMINAL WALL: Post laparotomy incision. Midline umbilical hernia and left lateral periumbilical hernia as described above. No incarceration or strangulation identified. LYMPH NODES: Normal. VASCULAR: Minimal atheromatous aortic and iliac changes without aneurysm. PELVIC VISCERA: There is been a hysterectomy. No adnexal masses or fluid collections. OSSEOUS STRUCTURES: No suspicious lytic or blastic bone lesions. Mild degenerative hip joint changes bilaterally. Very mild spinal degenerative changes. CT/CT abdomen pelvis wo IV con IMPRESSION: 1. No acute intra-abdominal or pelvic abnormality. 2. Two ventral hernias containing small bowel and colon as described above. No strangulation or incarceration. 3. Normal appendix. 4. Fatty infiltration of the liver. 5. Cholecystectomy. 6. Stable fatty replacement of the pancreas. 7. 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
[2024-01-06] MEDS: Barium Sulfate Oral (Vanilla) 450 ML ORAL.SUSP 900 ML PO (09:42)
[2024-01-09 07:21] LABS: Creatinine POC 0.8 mg/dL (0.5-1.4); GFR POC > 60
== END | disposition home or self-care (01) ==
LOC: HO.CT
PROVIDERS: PCP Internal Medicine; Visit Provider Internal Medicine Gastroenterology
DX: R10.31 Right lower quadrant pain (principal); G89.29 Other chronic pain
CPT/HCPCS: 74176; 82565

== ENCOUNTER 2024-02-06 13:04 | Outpatient (AMB) | payer BC, SELFPAY ==
--- NOTE | 2024-02-06 13:06 | MHC.OFFVIS ---
Vital Signs 02/06/24 13:13 Height 5 ft 4 in Weight 182 lb BMI 31.2 BP 166/79 H Blood Pressure Location Lt brachial Position Sitting Pulse 78 Intake Visit Reasons: Umbilical hernia without obstruction or gangrene Intake Note: This patient was referred by Dr. Bolton for umbilical hernia. 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 She says she has noticed this mass at the level of her umbilicus for many years. However, this has been increasing in size. It has been causing her more discomfort now. She denies GI complaints. She denies vomiting or signs of obstruction She did have a hysterectomy in the past he is noted to have an midline incision at the level of the umbilicus going inferiorly. She had been seeing the house builder because of chronic constipation and reflux. [facility] Medical History (Updated 02/06/24 @ 13:35 by Josiah Clements MD) Incisional hernia Osteoarthritis of right knee Right knee pain Obese Constipation by delayed colonic transit Pure hypercholesterolemia Hypovitaminosis D GERD (gastroesophageal reflux disease) Surgical History History of tooth extraction History of laparoscopic cholecystectomy History of hysterectomy Family History Father Heart disease Mother Diabetes Hypertension Heart valve replaced Brother Myocardial infarction Maternal Grandmother No problems noted. Maternal Grandfather No problems noted. Paternal Grandmother Colon cancer Paternal Grandfather No problems noted. Sister Uterine cancer Social History Housing: House Alcohol intake: current Alcohol intake frequency: holidays/special occasions only Alcohol type: wine Patient Tobacco Use Status: Never used Tobacco e-Cigarette/Vaping Use: Never Used Second Hand Smoke Exposure: No service: No Current occupational status: employed Current occupation: [employer] Current occupational exposures/hazards: No Cognitive needs: No Hearing needs: No Vision needs: Yes (Glasses) Review of Systems Const Denies chills and Denies fever(s) Card Denies chest pain, Denies dyspnea and Denies dyspnea on exertion Resp Denies cough, Denies dyspnea and Denies dyspnea on exertion GI Denies hematochezia and Denies change in bowel habits Denies hematuria Musc Denies back pain and Denies limited range of motion Neuro Denies focal weakness and Denies convulsions Psych Denies depression and Denies mood swings Physical Exam Vital Signs: Last Vital Signs Pulse 78 02/06/24 13:13 BP 166/79 H 02/06/24 13:13 BMI result Body Mass Index 31.2 Const General: comfortable and no acute distress Orientation/consciousness: patient oriented x3 Neck Neck: Yes no lymphadenopathy Resp Auscultation: clear to auscultation bilaterally Cardio Rhythm: regular rhythm GI Other: Large nonhealing reducible hernia on the level of the umbilicus, mildly tender Palpation (GI): Soft to palpation, nontender and no guarding Neuro General: patient oriented x3 Assessment & Plan Assessment & Plan (1) Incisional hernia: Code(s): K43.2 - Incisional hernia without obstruction or gangrene Category: Medical Plan: She has this large nonreducible hernia at the level of the umbilicus. This appears to be an incisional hernia as she has a surgical scar on the area. I have reviewed her CAT scan. This actually shows 2 hernias, 1 at rest a little above the level of the umbilicus, measuring about 4.5 cm. The 2nd 1 is immediately below this measuring about 4.8 cm in diameter Both of these hernias have bowel loops involved. She does have some discomfort so. I therefore recommended for her to undergo repair of this hernia. I explained the technique of open repair of the incisional hernias x2. I explained the possible need for mesh placement. I explained the risks including but not limited to bleeding, infections, bowel injury, recurrence, postop pain, obstruction, as well as the benefits and alternatives. I reviewed with her what to expect postoperatively. I explained to her that she may need to stay in the hospital for 1 or 2 nights postoperatively for pain control. She understands and says she will proceed. She is uncertain as to when she is going to have this done at this time. Coding Level of Care Code New Pt Level 3 (39881) Diagnoses Incisional hernia K43.2
[2024-02-06 13:13] VITALS: BP 166/79; PULSE 78; BMI 31.2
== END 2024-02-06 13:34 | disposition home or self-care (01) ==
PROVIDERS: PCP Internal Medicine; Visit Provider Surgery
DX: K43.2 Incisional hernia without obstruction or gangrene (principal)
CPT/HCPCS: 99204

== ENCOUNTER → 2024-02-06 13:04 | Outpatient (BNVA) | payer OTHER, SELFPAY | PROVIDERS: PCP Internal Medicine; Visit Provider Surgery ==

== ENCOUNTER 2024-02-09 08:59 | Outpatient (AMB) | payer MEDICARE, BC, SELFPAY ==
--- NOTE | 2024-02-09 09:05 | A.OFFVIS_ITS ---
Vital Signs 02/09/24 09:10 Height 5 ft 4 in Weight 182 lb BMI 31.2 BP 138/67 Blood Pressure Location Lt brachial Position Sitting Pulse 71 Intake Visit Reasons: 3 month follow up Intake Note: Patient follow up for bleeding hemorrhoids, lab and CT scan results. Patient cc: constipation on and off and some light headaches in the morning. Denies any other GI issues. 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 ?CHRONIC ILLNESSES: hypertension, hyperlipidemia, gastroesophageal reflux disease (GERD), hx of kidney stones, peptic ulcer disease ?LABS IN [facility] : 07/2019 reviewed. IMAGING STUDIES: 01/06/[address] SCAN SHOWED: 1. No acute intra-abdominal or pelvic abnormality. 2. Two ventral hernias containing small bowel and colon as described above. No strangulation or incarceration. 3. Normal appendix. 4. Fatty infiltration of the liver. 5. Cholecystectomy. 6. Stable fatty replacement of the pancreas. 7. 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 08/07/19 abdominal ultrasound showed: ? Supraumbilical diastasis and bulge versus small hernia. This could be ? better assessed with CT scan if clinically indicated. ?11/22/18 CT colonography showed: ?Small amount of adherent stool is seen within the colon. There is ? however a small 6 mm nodular density along the posterior wall of the ? mid sigmoid colon which does not appear to significantly change in ? position between the supine and prone images. Although this could ? represent non-mobile adherent stool, a small 6 mm polyp cannot be ? excluded. Would clinically correlate with the recent incomplete ? colonoscopy to determine if the colonoscopy was able to extend through ? the sigmoid colon and possibly may have evaluated this area. I do not ? appreciate any more suspicious non-mobile abnormalities in the more proximal colon. ?ENDOSCOPIC STUDIES: 11/2018 EGD and colonoscopy showed: ?Endoscopy Findings: ?LARYNX: Changes suggestive of LPRD ?ESOPHAGUS: Focal esophagitis with irregular Z line ?STOMACH: Healing 1.5 cms ulcer/erosion in the pre-pyloric area - biopsied. Mild gastric erythema. ?DUODENUM: Normal ?Colonoscopy Findings: No polyps seen. ?Incomplete colonoscopy till proximal TC. ?Severe diverticulosis seen in the left colon ?Moderate hemorrhoids on antegrade withdrawl - unable to perform a retroflexed exam despite multiple attempts. ?Plan: ?Await pathology results. ?Proceed with CTC today to evaluate the right colon. ?Continue present medications (Senna- Docusate for constipation) ?Patient has an appointment on 12/20/18 in the GI Clinic with Griselda Mckeon. ?Repeat Colonoscopy/CTC in 10 years for colon cancer screening if CTC today is negative. 11/23/2018 03:48:50 PM EDT > Patient called and biopsy findings and results of CT Colonography were reviewed with her. She noted some lower abdominal cramps after the procedure - slowly improving. Prescription sent for Omeprazole 20 mg once daily. ?Biopsies showed: ?A. Stomach, antral ulcer, biopsy: Antal mucosa with chronic inactive gastritis and ? superimposed reactive/regenerative epithelial changes; negative for intestinal ? metaplasia, dysplasia, carcinoma, and Helicobacter pylori. ? B. Gastric, antrum, biopsy: Antral mucosa with chronic inactive gastritis and ? superimposed reactive/regenerative epithelial changes; negative for intestinal ? metaplasia, dysplasia, carcinoma, and Helicobacter pylori. ? C. Esophagus, distal, biopsy: Corpus-type mucosa with mild chronic inflammation; ? negative for intestinal metaplasia, dysplasia, and carcinoma. ?TODAY'S VISIT: Pt was seen by Dr Clements for management of to ventral hernia. Pt would like to review CT results with her sister (who is a nurse) prior to scheduling surgical repair Rectal bleeding has resolved PAST VISITS: Patient cc: right lower of abdominal discomfort on and off, hemorrhoids when she push a lot for BM, medication for constipation is helping her. Denies any other GI issues. Complains of intermittent throbbing pains in the RLQ radiating to the back. Notes pain if she takes red meat or fried foods Pain can last for a few days and resolve. Has been using the patches and Ibuprofen if pain gets severe. Denies change in appetite and has gained weight. Notes constipation and takes Senna Hemorrhoids come out when she strains Has to use hemorrhoid cream One episode of bleeding from hemorrhoids 2 -3 weeks ago. 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 ?Notes heartburn once in a while depending on what she is eating. ?Denies recent black stools or rectal bleeding. ?Patient denies major cardiac or pulmonary problems, loud snoring or sleep apnea ?Denies problems with anesthesia in the past. ?Denies being on chronic anticoagulation. Patient denies known family history of colon polyps, colon cancer or other GI malignancies. ?PAST GI HISTORY BY REVIEW OF MEDICAL RECORDS: ?Patient was last seen on 11/14/2018: ?Assessments ?1. Rectal bleeding - K62.5 (Primary) ?2. Family history of colonic polyps - Z83.71 ?3. Chronic constipation - K59.09 ?4. Gastroesophageal reflux disease, esophagitis presence not specified - K21.9 ?58 YF with hypertension, hyperlipidemia, gastroesophageal reflux disease (GERD), hx of kidney stones, peptic ulcer disease ?seen for chronic constipation and 2 week history of rectal bleeding. Likely cause of rectal bleeding is rectal irritation from straining and passage of hard stool. Other possibilities include hemorrhoids or minor diverticular bleed. Since her last colonoscopy was performed 9 years ago, I would recommend proceeding with repeat colonoscopy with MAC. ?Same-day EGD for evaluation of abdominal pain and history of GERD. Procedure and potential complications were reviewed with the patient. She was advised to start taking senna for constipation. ?Treatment ?1. Rectal bleeding ?Start Dulcolax Tablet Delayed Release, 5 mg, 2 tablets, Orally, twice a day, 1 day, 4 Tablet, Refills 0 ?Start TriLyte Solution Reconstituted, 420 GM, as directed, Orally, as directed, 1 day, 1 bottle, Refills 0 ? IMAGING: Colonoscopy ?2. Chronic constipation ?Start Senna-Docusate Sodium Tablet, 8.6-50 MG, 1 tablet in the evening as needed, Orally, Once a day, 30 day(s), 30, Refills 4 ?3. Gastroesophageal reflux disease, esophagitis presence not specified ?Notes: Same-day EGD for evaluation of abdominal pain and history of GERD [facility] Medical History (Updated 02/06/24 @ 13:35 by Josiah Clements MD) Incisional hernia Osteoarthritis of right knee Right knee pain Obese Constipation by delayed colonic transit Pure hypercholesterolemia Hypovitaminosis D GERD (gastroesophageal reflux disease) Surgical History History of tooth extraction History of laparoscopic cholecystectomy History of hysterectomy Family History Father Heart disease Mother Diabetes Hypertension Heart valve replaced Brother Myocardial infarction Maternal Grandmother No problems noted. Maternal Grandfather No problems noted. Paternal Grandmother Colon cancer Paternal Grandfather No problems noted. Sister Uterine cancer Social History Housing: House Alcohol intake: current Alcohol intake frequency: holidays/special occasions only Alcohol type: wine Patient Tobacco Use Status: Never used Tobacco e-Cigarette/Vaping Use: Never Used Second Hand Smoke Exposure: No service: No Current occupational status: employed Current occupation: [employer] Current occupational exposures/hazards: No Cognitive needs: No Hearing needs: No Vision needs: Yes (Glasses) Review of Systems Const Denies chills and Denies fever(s) Card Denies chest pain, Denies dyspnea and Denies dyspnea on exertion Resp Denies cough, Denies dyspnea and Denies dyspnea on exertion GI Denies hematochezia and Denies change in bowel habits Denies hematuria Musc Denies back pain and Denies limited range of motion Neuro Denies focal weakness and Denies convulsions Psych Denies depression and Denies mood swings Physical Exam Const General: comfortable and no acute distress Orientation/consciousness: patient oriented x3 Neck Neck: Yes no lymphadenopathy Resp Auscultation: clear to auscultation bilaterally Cardio Rhythm: regular rhythm GI Other: Large reducible hernia on the level of the umbilicus, mildly tender Palpation (GI): Soft to palpation, nontender and no guarding Neuro General: patient oriented x3 Assessment & Plan Assessment & Plan (1) GERD (gastroesophageal reflux disease): Code(s): K21.9 - Gastro-esophageal reflux disease without esophagitis Category: Medical Qualifiers: Esophagitis presence: esophagitis presence not specified Qualified Code(s): K21.9 - Gastro-esophageal reflux disease without esophagitis (2) Constipation by delayed colonic transit: Code(s): K59.01 - Slow transit constipation Category: Medical (3) Bleeding hemorrhoids: Code(s): K64.9 - Unspecified hemorrhoids Category: Medical (4) Chronic RLQ pain: Code(s): R10.31 - Right lower quadrant pain; G89.29 - Other chronic pain Category: Medical (5) Periumbilical hernia: Code(s): K42.9 - Umbilical hernia without obstruction or gangrene Category: Medical (6) Hypovitaminosis D: Code(s): E55.9 - Vitamin D deficiency, unspecified Category: Medical Plan 63 YF with hypertension, hyperlipidemia, gastroesophageal reflux disease (GERD), hx of kidney stones, peptic ulcer disease followed in GI for chronic co nstipation and history of rectal bleeding. 11/2018 EGD and colonoscopy showed focal esophagitis with irregular Z line and a healing 1.5 cms ulcer/erosion in the pre-pyloric area. Gastric biopsies were positive for Helicobacter pylori and patient was treated with antibiotics. Same day colonoscopy was Incomplete till proximal TC due to severe diverticulosis in the left colon Moderate hemorrhoids on antegrade withdrawl - likely source for rectal bleeding. A CTC was performed and findings as noted above. 11/03/23 Complains of intermittent throbbing pains in the RLQ radiating to the back. Notes pain if she takes red meat or fried foods Pain can last for a few days and resolve. Has been using the patches and Ibuprofen if pain gets severe. Denies change in appetite and has gained weight. Notes constipation and takes Senna Obtain records from [facility] regarding gynecological surgery Pt was advised to schedule an Abd CT scan and fu in 3 month Hold off colonoscopy for now since she had a negative colon and CTC in 201802/09/24 Pt was seen by Dr Clements for management of to ventral hernia. Pt would like to review CT results with her sister (who is a nurse) prior to scheduling surgical repair Rectal bleeding has resolved Pt advised wt reduction for fatty liver noted on CT scan (has normal LFTs) Medications: New cholecalciferol (vitamin D3) 250 mcg PO 2XW 90 days 26 tabs 1RF E55.9 - Vitamin D deficiency, unspecified Coding Level of Care Code Est Pt Level 4 (79679) Diagnoses Gastroesophageal reflux disease, unspecified whether esophagitis present K21.9 Esophagitis presence: esophagitis presence not specified Constipation by delayed colonic transit K59.01 Bleeding hemorrhoids K64.9 Chronic RLQ pain R10.31; G89.29 Periumbilical hernia K42.9 Hypovitaminosis D E55.9 Time Spent (min) 20
[2024-02-09 09:10] VITALS: BP 138/67; PULSE 71; BMI 31.2
== END 2024-02-09 09:59 | disposition home or self-care (01) ==
PROVIDERS: PCP Internal Medicine; Visit Provider Internal Medicine Gastroenterology
DX: K21.9 Gastro-esophageal reflux disease without esophagitis (principal); K59.01 Slow transit constipation; K64.9 Unspecified hemorrhoids; R10.31 Right lower quadrant pain; G89.29 Other chronic pain; K42.9 Umbilical hernia without obstruction or gangrene; E55.9 Vitamin D deficiency, unspecified
CPT/HCPCS: 99214

== ENCOUNTER → 2024-02-09 08:59 | Outpatient (BNVA) | payer BC, SELFPAY | PROVIDERS: PCP Internal Medicine; Visit Provider Internal Medicine Gastroenterology ==

== ENCOUNTER 2024-02-28 06:49 | Day surgery (SDC) | payer BC, SELFPAY ==
[2024-02-24 13:59] VITALS: BMI 31.2
--- NOTE | 2024-02-27 11:39 | P.CONAN_ITS ---
Documented by User: Lucila Nunes NP 02/27/24 11:40 HPI - Anesthesia Eval Consult details Narrative: 63yo F for Hernia Incisional Nonreducible with possible mesh PMFSH Active Problems Active Problems: All Active Problems Incisional hernia (Acute) Periumbilical hernia (Acute) Daytime somnolence (Acute) Discomfort of right ear (Acute) Chronic RLQ pain (Acute) Hospital discharge follow-up (Acute) Bleeding hemorrhoids (Acute) Right hip pain (Acute) Vaginal pruritus (Acute) HSV-2 infection (Acute) Physical exam (Acute) Right sided sciatica (Acute) Osteoarthritis of right knee (Acute) External hemorrhoid (Acute) Blood in stool (Acute) Right knee pain (Acute) Obese (Acute) Constipation by delayed colonic transit (Acute) Pure hypercholesterolemia (Acute) Hypovitaminosis D (Acute) GERD (gastroesophageal reflux disease) (Acute) Past Medical History Medical History Incisional hernia Osteoarthritis of right knee Right knee pain Obese Constipation by delayed colonic transit Pure hypercholesterolemia Hypovitaminosis D GERD (gastroesophageal reflux disease) Family History Family History Father Heart disease Mother Diabetes Hypertension Heart valve replaced Brother Myocardial infarction Maternal Grandmother No problems noted. Maternal Grandfather No problems noted. Paternal Grandmother Colon cancer Paternal Grandfather No problems noted. Sister Uterine cancer Surgical History Surgical History History of tooth extraction History of laparoscopic cholecystectomy History of hysterectomy Social History Social History Housing: House Alcohol intake: current Alcohol intake frequency: holidays/special occasions only Alcohol type: wine Patient Tobacco Use Status: Never used Tobacco e-Cigarette/Vaping Use: Never Used Second Hand Smoke Exposure: No Use of substances other than those prescribed or required for medical reasons: No Are you DNR?: No Advance Directives: No Advance Directives Information Provided: Yes service: No Current occupational status: employed Current occupation: [employer] Current occupational exposures/hazards: No Cognitive needs: No Hearing needs: No Vision needs: Yes (Glasses) Meds Allergies Allergy/AdvReac Type Severity Reaction Status Date / Time atorvastatin AdvReac Mild myalgia Verified 02/28/24 07:26 Home Medications ?Medication ?Instructions ?Recorded ?Confirmed ?Last Taken ?Type omega-3 fatty acids 1,000 mg 1,000 mg PO DAILY 05/25/21 02/28/24 02/26/24 History capsule (Fish Oil Concentrate) ascorbate calcium (vitamin C) 500 500 mg PO DAILY 11/03/23 02/28/24 02/25/24 History mg tablet cetirizine 10 mg tablet (Zyrtec) 10 mg PO 02/28/24 Unknown History Exam Height,Weight and Vital Signs: Height 5 ft 4 in Weight 82.554 kg Pertinent Lab Results Pertinent Lab Results: Laboratory Tests 11/28/23 10:02 WBC 7.8 Hgb 13.3 Hct 41.4 Plt Count 364 Sodium 141 Potassium 4.5 Chloride 106 Carbon Dioxide 27 BUN 12 Creatinine 0.78 Narrative Narrative: EKG 09/2023 Vent. Rate : 071 BPM Atrial Rate : 071 BPM P-R Int : 118 ms QRS Dur : 078 ms QT Int : 402 ms P-R-T Axes : 024 045 049 degrees QTc Int : 436 ms Normal sinus rhythm Normal ECG When compared with ECG of 12-OCT-2021 07:45, No significant change was found Assessment and Plan Assessment Anesthesia Assessment: Chart Reviewed Documented by User: Donna Hernandez MD 02/28/24 08:51 HPI - Anesthesia Eval Consult details Narrative: 63yo F for repair of Nonreducible Incisional Hernia with possible mesh PMFSH Active Problems Active Problems: All Active Problems Incisional hernia (Acute) Periumbilical hernia (Acute) Daytime somnolence (Acute). Denies BUD Discomfort of right ear (Acute) Chronic RLQ pain (Acute) Hospital discharge follow-up (Acute) Bleeding hemorrhoids (Acute) Right hip pain (Acute) Vaginal pruritus (Acute) HSV-2 infection (Acute) Right sided sciatica (Acute) Osteoarthritis of right knee (Acute) External hemorrhoid (Acute) Blood in stool (Acute) Right knee pain (Acute) Obese (Acute) Constipation by delayed colonic transit (Acute) Pure hypercholesterolemia (Acute) Hypovitaminosis D (Acute) GERD (gastroesophageal reflux disease) (Acute) Past Medical History Medical History Incisional hernia Osteoarthritis of right knee Right knee pain Obese Constipation by delayed colonic transit Pure hypercholesterolemia Hypovitaminosis D GERD (gastroesophageal reflux disease) Family History Family History Father Heart disease Mother Diabetes Hypertension Heart valve replaced Brother Myocardial infarction Maternal Grandmother No problems noted. Maternal Grandfather No problems noted. Paternal Grandmother Colon cancer Paternal Grandfather No problems noted. Sister Uterine cancer Family history of problems with anesthesia: No Surgical History Surgical History History of tooth extraction History of laparoscopic cholecystectomy History of hysterectomy History of Problems with Anesthesia: No Social History Social History Housing: House Alcohol intake: current Alcohol intake frequency: holidays/special occasions only Alcohol type: wine Patient Tobacco Use Status: Never used Tobacco e-Cigarette/Vaping Use: Never Used Second Hand Smoke Exposure: No Use of substances other than those prescribed or required for medical reasons: No Are you DNR?: No Advance Directives: No Advance Directives Information Provided: Yes service: No Current occupational status: employed Current occupation: [employer] Current occupational exposures/hazards: No Cognitive needs: No Hearing needs: No Vision needs: Yes (Glasses) Meds Allergies Allergy/AdvReac Type Severity Reaction Status Date / Time atorvastatin AdvReac Mild myalgia Verified 02/28/24 07:26 Home Medications ?Medication ?Instructions ?Recorded ?Confirmed ?Last Taken ?Type omega-3 fatty acids 1,000 mg 1,000 mg PO DAILY 05/25/21 02/28/24 02/26/24 History capsule (Fish Oil Concentrate) ascorbate calcium (vitamin C) 500 500 mg PO DAILY 11/03/23 02/28/24 02/25/24 History mg tablet cetirizine 10 mg tablet (Zyrtec) 10 mg PO 02/28/24 Unknown History Exam Height,Weight and Vital Signs: Height 5 ft 4 in Weight 82.554 kg Vital Signs Temp Pulse Resp BP Pulse Ox O2 Del Method 02/28/24 07:53 97.3 F 70 16 148/78 H 96 Room Air Pertinent Lab Results Pertinent Lab Results: Laboratory Tests 11/28/23 10:02 WBC 7.8 Hgb 13.3 Hct 41.4 Plt Count 364 Sodium 141 Potassium 4.5 Chloride 106 Carbon Dioxide 27 BUN 12 Creatinine 0.78 Airway Mallampati Class: II TM Dist: >3cm Neck ROM: Full Loose/Missing/Broken Teeth: Yes (Missing some back teeth. Extracted. Denies broken or loose teeth. Crowns intact) Heart: RRR Lungs: CTAB Assessment and Plan Assessment Anesthesia Assessment: Anesthesia Plan Discussed and Chart Reviewed Final Anesthetic Review Family History of Problems with Anesthesia: No History of Problems with Anesthesia: No NPO: Yes ASA Class: II Final Preanesthetic Review: No Changes in Pt Med Stat, Meds/Allgs Chart Reviewed, Consent Obtained/Reviewed and Anes Risks/Benef Reviewed Patient Risk: Low Procedure Risk: Low Assessment/Block/Sedation in SS: Assess/Block/Sedation-SS Anesthetic Plan Anesthetic Plan: GA Disposition: Standard PACU
[2024-02-28] VITALS (19 sets, daily range): BP systolic 130–148; BP diastolic 58–78; PULSE 55–80; RESP 11–20; TEMP 36.3–36.8; O2SAT 93–96; BMI 30.2
[2024-02-28] MEDS: Lactated Ringers 1,000 ML 100 ML IVCONT ×2 (08:08→17:44)
--- NOTE | 2024-02-28 09:05 | MHC.SHP ---
Pre-Procedural Eval Section A - 24 Hr Update-Section A only Date of Service: 02/28/24 The patient is an INPATIENT: No Changes since office visit: No Cold of Flu in the past 2 weeks, No New Medical Problems, No Changes in Medication and No Patient answered all questions The patient has been examined within 24 hours of the surgical procedure. The History & Physical has been completed within 30 days and I have reviewed it.: Yes Section B - Complete if H&P > 30 days Chief Complaint: Incisional hernia without obstruction or gangrene Allergies: Allergies Allergy/AdvReac Type Severity Reaction Status Date / Time atorvastatin AdvReac Mild myalgia Verified 02/28/24 07:26 Plan I have reviewed the history and physical and performed a pertinent physical examination on my patient. No changes have occurred unless specified. Time Spent With Patient Time: Total time managing care of this patient today ____ minutes.
--- NOTE | 2024-02-28 10:59 | W.PM.OPN ---
Operative Note Operative Note Date of Service: 02/28/24 Narrative: Preop diagnosis: large and multiple incisional hernias Postop diagnosis: The same Procedure: Repair of multiple and large incisional hernias with Ventrio mesh, and extensive lysis of adhesions; aggregate size of all hernias was about 8 cm by 4.5 cm Surgeon: Josiah Clements MD hospital aides and assistants teacher: RAYMUNDO Nunez The patient is a 63 year female with a history of hysterectomy via lower midline incision, who developed a hernia. Her CAT scan showed multiple hernias in the area of the umbilicus. These had bowel loops through the hernia. She understood the technique of repair with mesh and was aware of the risks, benefits, and alternatives She was brought to the operating room. She was placed supine under general anesthesia via endotracheal tube. The abdomen was prepped and draped in the usual sterile fashion. A surgical time-out was done. The patient received cefazolin 2 g IV preoperatively I infiltrated the planned line incision with lidocaine 1%. I then made incision on the midline along the old previous incision at the level of the umbilicus going inferiorly using a blade 15. And this carried down through the full-thickness of the skin and subcutaneous fat. Once we were in the deep subcutaneous fat, I proceeded to then gently do blunt dissection to until I visualized hernia sac. I carefully the sac from the rest of the subcutaneous layer. I entered the sac at the level of the fascia and expose the entire fascial defect by careful dissection using Metzenbaum scissors and electrocautery. There was note of very adherent bowel loops in 1 part of the hernia sac laterally and we had to do a lot of careful dissection using the Bovie scissors to release this. We then proceeded to open up the entire sac to expose the rest of the fascial defect. This was a large fascial defect and there was a lot of adjuvant bowel loops on the left side. We had to do more careful sharp dissection with Metzenbaum scissors to release all these very adherent bowel loops. This part of the procedure took an extended period of the time Eventually as able to clear up the entire margins of the fascial defect adhesions. Examination of the lower part of the fascia showed other hernia he had an intervening fascial band in between this so I had to divide the narrow fascial band to create 1 hernia. I had to do more of the adhesions of adherent fatty tissue on the lower hernia Examination of the right side of the fascia revealed another smaller hernia about 1cm in diameter containing fat. I had to carefully lyse the adhesions surrounding this fat to be able to reduce this to the defect I incorporated this 3rd hernia with the large hernia in the middle. The aggregate size of this entire hernia was 8 cm from superior to inferior, and about 4-5 cm transversely I therefore used a 15 x 10 cm Ventrio mesh. I flattened this under the fascial defect with good overlap past margins of the defect.. I secured 4 quadrants of the mesh to the fascia using Prolene 2-0 sutures through the Prolene side of the mesh. I then applied a circumferential row of absorbable tacks to secure the rest of the Prolene side of the mesh to the peritoneal side of the fascia. I made sure that there were no gaps in between the tacks. Prior to fixation of the mesh, I had I made all bowel loops surrounding the area and there was no evidence of any bowel injury. There was good hemostasis as well. I then closed the fascia with a running Maxon 1 stitch. The deep subcutaneous layer was reapposed with Polysorb 3-0 interrupted sutures. Skin closure was achieved with skin scooby. The area had been infiltrated with Marcaine 0.5% for postop analgesia. Dressings were applied. The procedure was completed. The patient tolerated the procedure well. There were no immediate complications Initial final counts of sponges and instruments were correct. Estimated blood loss was less than 25 cc. The patient was extubated without difficulty and transferred to the recovery room with stable vital signs She was admitted as extended stay for pain management.
[2024-02-28] MEDS: fentaNYL citrate/PF 100 MCG/2 ML VIAL 25 MCG IVPUSH ×4 (11:28→11:55)
[2024-02-28] MEDS: Acetaminophen 325 MG TABLET 650 MG PO ×2 (16:09→23:00)
--- NOTE | 2024-02-28 16:28 | PM.EVENT ---
Event Note Date of Service: 02/28/24 Event Note: seen postop s/p repair of large incisional hernia says she has adequate pain control looks well stable VS pain mgt dw sisters doing well postop Time Spent With Patient Time: Total time managing care of this patient today ____ minutes.
[2024-02-28] MEDS: 0.9 % Sodium Chloride Flush 3 ML SYRINGE IVFLUSH (17:44)
[2024-02-28] MEDS: Ketorolac Tromethamine 15 MG/ML VIAL IVPUSH (17:46)
--- NOTE | 2024-02-28 19:09 | PHA.MEDREC ---
Addendum entered by Christian Billingsley RPh 02/28/24 20:03: MED REC CHECKED BY [facility] Original Note: Pharmacy Consult ? Medication Reconciliation Pharmacy has completed the medication reconciliation. Confirmed medications with patient. Patient confirmed she is taking Vitamin D3 250 mcg (10,000 units) every Tuesday and Tuesday and she last took that Tuesday02/24/24. She states she last took the rest of her medications Tuesday02/26/24
[2024-02-29] MEDS: Ketorolac Tromethamine 15 MG/ML VIAL IVPUSH ×2 (03:53→09:54)
[2024-02-29] MEDS: Lactated Ringers 1,000 ML 100 ML IVCONT (03:54)
[2024-02-29 04:00] VITALS: BP 135/63; PULSE 70; RESP 16; TEMP 36.3; O2SAT 92
[2024-02-29 07:22] VITALS: BP 133/63; PULSE 69; RESP 18; TEMP 36.4; O2SAT 92
--- NOTE | 2024-02-29 08:27 | PM.PNGS ---
Subjective Subjective Date of Service: 02/29/24 Interval history: Says she has good pain control Had a good night Tolerating diet well Passing flatus Physical Exam Vital Signs: Vital Signs: Last Vital Signs Temp 97.6 F 02/29/24 07:22 Pulse 69 02/29/24 07:22 Resp 18 02/29/24 07:22 BP 133/63 02/29/24 07:22 Pulse Ox 92 02/29/24 07:22 O2 Del Method Room Air 02/29/24 07:22 O2 Flow Rate 2 02/28/24 16:10 BMI result Body Mass Index 30.2 Const: General: comfortable and no acute distress Resp: Effort & Inspection: normal respiratory effort Cardio: Rate: regular rate GI: Other: Dressings dry Palpation (GI): Soft to palpation Objective Data Active Medications Acetaminophen (Acetaminophen 325 Mg Tablet) 650 mg PO Q6H PRN PRN Reason: Pain, Mild (Pain Scale 1-3), fever or headache Last Admin: 02/28/24 23:00 Dose: 650 mg Documented By: THUAN Ascorbic Acid (Ascorbic Acid 500 Mg Tablet) 500 mg PO DAILY CURRY Calcium Carbonate (Calcium Carbonate 750 Mg Tab.Chew) 750 mg PO Q4H PRN PRN Reason: Heartburn Heparin Sodium (Porcine) (Heparin Sodium,Porcine 5,000 Unit/Ml Vial) 5,000 unit SUBCUT Q8H CURRY Ketorolac Tromethamine (Ketorolac Tromethamine 15 Mg/Ml Vial) 15 mg IVPUSH Q6H PRN PRN Reason: abdominal pain Last Admin: 02/29/24 03:53 Dose: 15 mg Documented By: THUAN Melatonin (Melatonin 3 Mg Tablet) 6 mg PO BEDTIME PRN PRN Reason: Insomnia Morphine Sulfate (Morphine Sulfate 4 Mg/Ml Cartridge) 4 mg IVPUSH Q4H PRN; Protocol PRN Reason: Pain, Severe (Pain Scale 7-10) Ondansetron HCl (Ondansetron Hcl 4 Mg/2 Ml Vial) 4 mg IVPUSH Q6H PRN PRN Reason: Nausea and Vomiting Oxycodone HCl (Oxycodone Hcl Immed Release 5 Mg Tablet) 5 mg PO Q4H PRN PRN Reason: Pain, Moderate(Pain Scale 4-6) Sodium Chloride (0.9 % Sodium Chloride Flush 3 Ml Syringe) 3 ml IVFLUSH QSHIFT CURRY Last Admin: 02/29/24 07:38 Dose: Not Given Documented By: ZACH Non-Admin Reason: IV Running Procedures Date of Service Date of Service: 02/29/24 Progress Note: A&P Assessment and plan (1) Incisional hernia: Status: Acute Assessment and Plan: Status post repair of a large hernia, multiple with mesh Appears to have good pain control Tolerating diet Ambulate Incentive spirometry If she has good pain control on oral medications, plan to DC home today Discussed instructions with the patient She seems to understand well Time Spent With Patient Time: Total time managing care of this patient today ____ minutes. Quality Stroke Does the patient have a stroke diagnosis?: No VTE Prior VTE?: No VTE Risk Level:: Medical - moderate - high VTE Device Contraindication: N/A - Device Ordered VTE Drug Contraindication: N/A - Med Ordered
--- NOTE | 2024-02-29 08:41 | MHC.CM.PN ---
Addendum entered by Natasha Marquez RN 02/29/24 08:43: CLARIFICATION HUSBANDS FIRST NAME IS NEERAJ. Original Note: EMR REVIEWED, PT S/P HERNIA REPAIR W/MESH, CM MET W/PT AND MEDICA AT BEDSIDE, PT REPORTS SHE LIVES W/, IS FULLY INDEP W/ALL CARE, DENIES USE OF DME/SERVICES AND GOAL FOR DC IS HOME SELF CARE, PT'S ASKING ABOUT A TOILET RISER AND PER DISCUSSION WILL STOP AT [facility]. PCP ON FILE AND HCP IS PT'S DEANA AND DTR VICKEY, COPY REQUESTED.
[2024-02-29] MEDS: Heparin Sodium,Porcine 5,000 UNIT/ML VIAL 5000 UNIT SUBCUT (09:28)
[2024-02-29] MEDS: Ascorbic Acid 500 MG TABLET PO (09:28)
--- NOTE | 2024-02-29 12:56 | PM.EVENT ---
Event Note Date of Service: 02/29/24 Event Note: seen on ffup rounds she says she feels well and states she wants to go home dressings changed - incision clean abd soft she looks well tolerating diet instructions reviewed with pt ffup in office Time Spent With Patient Time: Total time managing care of this patient today ____ minutes.
--- NOTE | 2024-02-29 13:50 | PM.DS ---
DS: Providers Provider Date of Service: 02/29/24 Date of discharge: 02/29/24 Primary care physician: Analisa Dominguez MD Attending physician on admission: Josiah Clements Attending physician on discharge: Josiah Clements DS: Diagnosis Discharge Diagnosis (1) Incisional hernia: Status: Acute DS: Summary Hospital Course Hospital Course: HPI AT ADMISSION: The patient is a 63 year female with a history of hysterectomy via lower midline incision, who developed a hernia. Her CAT scan showed multiple hernias in the area of the umbilicus. These had bowel loops through the hernia. She now presents for repair of this incisional hernia with mesh. HOSPITAL COURSE: On 02/28/24 Repair of multiple and large incisional hernias with Ventrio mesh, and extensive lysis of adhesions was performed by Dr. Clements without complication. The patient tolerated the procedure well and was admitted for observation and pain control post operatively. She had an uncomplicated recovery course. On POD #1, she felt well with good pain control. She was tolerating a solid diet without nausea or vomiting. She was passing flatus. She was hemodynamically stable with a benign abdomen with clean incision. She felt ready for discharge to home. She was discharged to home on 02/29/24 in stable condition. She is to follow up in the office in 2 weeks. She is to wear her abdominal binder daily and to avoid heavy lifting. Status at Discharge Functional status at discharge: independent ambulation Overall status at discharge: patient is progressing back to baseline Time Attestation Discharge Coordination Time (in mins): 30 Quality: Safe Use of Opioids Does Pt have an Active Cancer Diagnosis on the Problem List?: No Quality: Stroke Does the patient have a stroke diagnosis?: No Physical Exam Vital Signs: Vital Signs: Last Vital Signs Temp 97.6 F 02/29/24 07:22 Pulse 69 02/29/24 07:22 Resp 18 02/29/24 07:22 BP 133/63 02/29/24 07:22 Pulse Ox 92 02/29/24 07:22 O2 Del Method Room Air 02/29/24 07:22 O2 Flow Rate 2 02/28/24 16:10 BMI result Body Mass Index 30.2 Const: General: comfortable, no acute distress and alert Orientation/consciousness: patient oriented x3 Resp: Effort & Inspection: normal respiratory effort GI: Inspection: No distended and Yes incision (clean) Palpation (GI): Soft to palpation, Tenderness to palpation present (GI) (mild incisional) and no guarding Skin: General skin exam: no rashes or lesions noted Neuro: General: patient oriented x3 and moves all extremities Discharge Plan Discharge Patient Disposition: Home, Self-Care Referrals: Josiah Clements MD [Physician] - 2 Weeks Analisa Salinas MD [Primary Care Provider] - 1 Week Discharge Medications: New oxycodone 5 mg tablet 5 mg PO Q4H PRN (Reason: pain (scale score 7-10)) Qty: 26 0RF Rx Instructions: Partial Fill upon patient request. docusate sodium [Colace] 100 mg capsule 100 mg PO BID Qty: 30 0RF ibuprofen 600 mg tablet 600 mg PO Q6H PRN (Reason: pain) Qty: 30 0RF Continued cetirizine [Zyrtec] 10 mg Tablet 10 mg PO DAILY PRN (Reason: allergies) cholecalciferol (vitamin D3) 250 mcg (10,000 unit) Tablet 250 mcg PO MOFR lidocaine 5 % adhesive patch,medicated 1 patch topical DAILY PRN (Reason: Pain) omega-3 fatty acids [Fish Oil Concentrate] 1,000 mg capsule 1,000 mg PO DAILY ascorbate calcium (vitamin C) 500 mg tablet 500 mg PO DAILY Discharge Orders: Discharge Order (Routine); Ordered 02/29/24 Ordered By: Josiah Clements Diet: Advance to usual diet Activity on Discharge: No heavy lifting Activity Restrictions/Additional Instructions: If the incision area is tender, you may apply an ice pack for short intervals (No more than 20 minutes on, followed by at least 20 minutes off). Do not apply heat. Do not use creams, lotions, or topical antibiotics. These can cause infection or allergic reaction. You can cover the incision with gauze Ok to shower. You have scooby closing your incision and these will be removed approximately 10-14 days after surgery. NO HEAVY LIFTING (>10lbs) or strenuous activity. Wear your abdominal binder daily. Colace 100 mg morning and night as needed for constipation. Follow up in office in 2 weeks. ([phone]) Call Your Doctor If: -Your temperature exceeds 101.5? F -You experience excessive pain or swelling -You have an unexpected reaction to medication -You have excessive bleeding -You experience continued vomiting/nausea -Your incision begins to separate -Your incision shows signs of infection such as increased redness, swelling, excessive pain, drainage (light blood or clear fluid is normal) or heat Print Language: [place]
--- NOTE | 2024-02-29 13:56 | HO.POSTANES ---
Post Anesthesia Evaluation Post Anesthesia Evaluation Date of Service: 02/29/24 Vital Signs: Vital Signs Temp Pulse Resp BP Pulse Ox O2 Del Method 02/29/24 07:22 97.6 F 69 18 133/63 92 Room Air 02/29/24 04:00 97.3 F 70 16 135/63 92 Room Air Anesthesia: General Endotracheal-GETA Mental Status: Awake Pain Control: Satisfactory Nausea/Vomiting: None Hydration: Adequate Anesthesia-Related Issues: No Anes. Related Issues
[2024-02-29] MEDS: oxyCODONE HCl Immed Release 5 MG TABLET PO (14:10)
== END 2024-02-29 14:47 | disposition home or self-care (01) ==
LOC: HO.SSS 06:50 → HO.IMC 16:50
PROVIDERS: PCP Internal Medicine; Visit Provider Surgery
PROC: (CPT 49593; principal; 2024-02-28 09:20)
DX: K43.2 Incisional hernia without obstruction or gangrene (principal); K66.0 Peritoneal adhesions (postprocedural) (postinfection); K21.9 Gastro-esophageal reflux disease without esophagitis; E78.00 Pure hypercholesterolemia, unspecified; Z90.710 Acquired absence of both cervix and uterus; Z88.8 Allergy status to other drugs, medicaments and biological substances; Z79.899 Other long term (current) drug therapy
CPT/HCPCS: 49593; 58999; C1781; C1889; J0131; J0690; J1100; J1170; J1644; J1885; J2250; J2405; J2704; J2795; J3010; J7120

== ENCOUNTER → 2024-02-28 06:49 | Outpatient (BNV) | payer BC, SELFPAY | PROVIDERS: PCP Internal Medicine; Visit Provider Surgery | DX: K43.3 Parastomal hernia with obstruction, without gangrene (principal) | CPT/HCPCS: 49596; 99213; 99499 ==

== ENCOUNTER 2024-03-14 10:12 | Outpatient (AMB) | payer MEDICARE, BC, SELFPAY ==
--- NOTE | 2024-03-14 10:13 | MHC.OFFVIS ---
Vital Signs 03/14/24 10:19 Height 5 ft 4 in Weight 175 lb BMI 30.0 Intake Visit Reasons: S/P incisional hernia w/poss mesh Intake Note: This patient presents for post-op assessment status post Repair of multiple and large incisional hernias with Ventrio mesh, and extensive lysis of adhesions; aggregate size of all hernias was about 8 cm by 4.5 cm. Pt c/o; reports no complaints at this time pertaining to surgery. 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 She tolerated procedure well. She was discharged on postop day 1. She says she is doing well. She denies significant pain. She has good oral intake. [facility] Medical History Incisional hernia Osteoarthritis of right knee Right knee pain Obese Constipation by delayed colonic transit Pure hypercholesterolemia Hypovitaminosis D GERD (gastroesophageal reflux disease) Surgical History History of hernia repair (~02/28/24) History of tooth extraction History of laparoscopic cholecystectomy History of hysterectomy Family History Father Heart disease Mother Diabetes Hypertension Heart valve replaced Brother Myocardial infarction Maternal Grandmother No problems noted. Maternal Grandfather No problems noted. Paternal Grandmother Colon cancer Paternal Grandfather No problems noted. Sister Uterine cancer Social History Household Members: Spouse Housing: House Do you presently have visiting nurse or other home services: No Alcohol intake: current Alcohol intake frequency: holidays/special occasions only Alcohol type: wine Comment: counts correct Patient Tobacco Use Status: Never used Tobacco e-Cigarette/Vaping Use: Never Used Second Hand Smoke Exposure: No service: No Current occupational status: employed Current occupation: [employer] Current occupational exposures/hazards: No Cognitive needs: No Hearing needs: No Vision needs: Yes (Glasses) Review of Systems Const Denies chills and Denies fever(s) Card Denies chest pain, Denies dyspnea and Denies dyspnea on exertion Resp Denies cough, Denies dyspnea and Denies dyspnea on exertion GI Denies hematochezia and Denies change in bowel habits Denies hematuria Musc Denies back pain and Denies limited range of motion Neuro Denies focal weakness and Denies convulsions Psych Denies depression and Denies mood swings Physical Exam Vital Signs: BMI result Body Mass Index 30.0 Const Other: Ambulating General: comfortable and no acute distress Resp Effort & Inspection: normal respiratory effort GI Other: Midline incision well healed, scooby intact, repair intact, no evidence of infection Palpation (GI): Soft to palpation, not firm, nontender and no guarding Assessment & Plan Assessment & Plan (1) Periumbilical hernia: Code(s): K42.9 - Umbilical hernia without obstruction or gangrene Category: Medical Plan: Status post repair with mesh. She is doing very well. I removed all her skin scooby . The repair appears intact. He has no evidence of wound infection. I advised her to avoid any lifting more than 20 lb for at least 2-3 more weeks. She can otherwise follow up with me on a p.r.n. basis. Coding Level of Care Code Global (66330) Diagnoses Periumbilical hernia K42.9
== END 2024-03-14 10:28 | disposition home or self-care (01) ==
PROVIDERS: PCP Internal Medicine; Visit Provider Surgery
DX: K42.9 Umbilical hernia without obstruction or gangrene (principal); Z48.02 Encounter for removal of sutures
CPT/HCPCS: 99212

== ENCOUNTER → 2024-03-14 10:12 | Outpatient (BNVA) | payer BC, SELFPAY | PROVIDERS: PCP Internal Medicine; Visit Provider Surgery ==

== ENCOUNTER 2024-04-23 08:15 | Outpatient (AMB) | payer BC, SELFPAY ==
[2024-04-23 08:32] VITALS: BP 150/90; BMI 30.4
--- NOTE | 2024-04-23 08:32 | A.OFFPC_ITS ---
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 Accompanied by: Self / Same As Patient Allergies atorvastatin Adverse Reaction (Mild, Verified 04/23/24 08:43) myalgia Medication List - Last Reconciled 04/23/24 by Analisa Dominguez MD ascorbate calcium (vitamin C) 500 mg PO DAILY cetirizine (Zyrtec) 10 mg PO DAILY PRN cholecalciferol (vitamin D3) 250 mcg PO MOFR docusate sodium (Colace) 100 mg PO BID ibuprofen 600 mg PO Q6H PRN lidocaine 5% 1 patch topical DAILY PRN omega-3 fatty acids (Fish Oil Concentrate) 1,000 mg PO DAILY Tobacco use date assessed: 10/03/23 Fall risk assessment: No Falls in past year Last assessed Fall Risk: 04/23/24 Dental Screening Dental Screen Date: 04/23/24 Did you have a dental visit in the last 12 months?: No Did you have a dental problem in the last 6 months where you did not have access to dental care?: No Was dental information given to patient?: Patient has dentist HPI HPI Comments History of Present Illness Details This is a 63-year-old female with constipation, osteopenia and low vitamin-D that comes today complaining of right sinus pain, right ear pain and sore throat that started about a week ago. Denies any sick contacts. Would like a Z-Rj. No fever. Constipation stable with docusate as needed. DEXA scan done 2023 shows osteopenia and I will add calcium which she is aware can cause constipation. On vitamin-D supplements for her low vitamin-D. [facility] Medical History (Updated 04/23/24 @ 10:25 by Analisa Dominguez MD) Incisional hernia Osteoarthritis of right knee Right knee pain Obese Constipation by delayed colonic transit Pure hypercholesterolemia Hypovitaminosis D GERD (gastroesophageal reflux disease) Surgical History History of hernia repair (~02/28/24) History of tooth extraction History of laparoscopic cholecystectomy History of hysterectomy Family History Father Heart disease Mother Diabetes Hypertension Heart valve replaced Brother Myocardial infarction Maternal Grandmother No problems noted. Maternal Grandfather No problems noted. Paternal Grandmother Colon cancer Paternal Grandfather No problems noted. Sister Uterine cancer Social History Household Members: Spouse Housing: House Do you presently have visiting nurse or other home services: No Alcohol intake: current Alcohol intake frequency: holidays/special occasions only Alcohol type: wine Comment: counts correct Patient Tobacco Use Status: Never used Tobacco e-Cigarette/Vaping Use: Never Used Second Hand Smoke Exposure: No service: No Current occupational status: retired Current occupation: [employer] Cognitive needs: No Hearing needs: No Vision needs: Yes (Glasses) Questionnaire Thrive Questionnaire Date Thrive assessed: 02/29/24 Are you currently unemployed and looking for a job?: I choose not to answer this question JILLIAN-7 AMB Questionnaire JILLIAN-7 Date JILLIAN - 7 assessed: 10/03/23 Source: Developed by Drs. Yasir Calero, Neeru Valenzuela, Lalo Murcia and colleagues, with an educational terrance from [employer]. Review of Systems Const All systems reviewed & are unremarkable except as noted in HPI and below Card Denies chest pain at rest, Denies chest pain with activity, Denies edema, Denies irregular heart rhythm, Denies claudication, Denies dyspnea, Denies dyspnea on exertion, Denies orthopnea, Denies paroxysmal nocturnal dyspnea and Denies slow heart rate Resp Denies cough, Denies dyspnea and Denies dyspnea on exertion GI Denies abdominal pain, Denies change in bowel habits, Denies excessive flatus, Denies nausea and Denies vomiting Denies urinary incontinence, Denies urinary hesitancy and Denies urinary urgency Musc Denies atrophy, Denies deformity and Denies limited range of motion Physical exam (Primary Care) Vital Signs: Last Vital Signs BP 150/90 H 04/23/24 08:52 Care Plan Goal for BP management: Blood pressure goal is equal or less than 130/80. Follow a low-salt diet. Next steps: Recheck blood pressure with nurse navigator in 3 weeks BMI result Body Mass Index 30.4 BMI Assessment/Plan discussion: High BMI High, discussed plan: lifestyle, weight reduction, dietary and physical activity Tobacco/Smoking Status: Tobacco use Status Tobacco use date assessed 10/03/23 04/23/24 08:35 Patient Tobacco Use Status Never used Tobacco 04/23/24 08:35 e-Cigarette/Vaping Use Never Used 04/23/24 08:35 Thrive Assessment: Date of Thrive Assessment Date Thrive assessed 02/29/24 04/23/24 08:35 Resp Effort & Inspection: normal respiratory effort Auscultation: clear to auscultation bilaterally Cardio Jugular venous distension: no JVD Rate: regular rate Rhythm: regular rhythm Heart sounds: S1 normal heart sound present and S2 normal heart sound present Extrem General: Yes full ROM Office Procedures Flu Questionnaire Does the patient have a severe egg allergy?: No Does the patient have severe life threatening allergies?: No Does the patient have a fever or illness today?: No Has the patient ever had Guillain-Glenwood Syndrome?: No Has the patient ever had any past reaction to a flu shot?: No Immunizations Fluarix Triv [id number] (PF) 45 mcg (15 mcg x 3)/0.5 mL IM syringe Performing Provider: Analisa Dominguez MD [facility] Administered by: AGNIESZKA Smith on 04/23/24 08:55 Dose Route Admin Location Dispensed Lot Number Expiration Date 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9 - Acute upper respiratory infection, unspecified Category: Medical Plan: Start Z-Rj. (2) Constipation by delayed colonic transit: Code(s): K59.01 - Slow transit constipation Category: Medical Plan: Continue docusate as needed. (3) Hypovitaminosis D: Code(s): E55.9 - Vitamin D deficiency, unspecified Category: Medical Plan: Continue vitamin-D supplements. (4) Osteopenia: Code(s): M85.80 - Other specified disorders of bone density and structure, unspecified site Category: Medical Plan: Continue calcium with vitamin-D. DEXA scan in 2 years. Orders: Orders Influenza [id number] Immunization Today Z23 - Encounter for immunization Medications: New calcium carbonate (Calcium 600) 600 mg PO BID 180 tabs 1RF 90 days azithromycin Take 2 tabs the first day, then 1 tab for the next 4 days 250 mg PO DAILY 6 tabs 0RF 5 days
[2024-04-23 08:52] VITALS: BP 150/90
== END 2024-04-23 08:56 | disposition home or self-care (01) ==
PROVIDERS: PCP Internal Medicine; Visit Provider Internal Medicine
DX: J06.9 Acute upper respiratory infection, unspecified (principal); K59.01 Slow transit constipation; E55.9 Vitamin D deficiency, unspecified; M85.80 Other specified disorders of bone density and structure, unspecified site; Z23 Encounter for immunization

== ENCOUNTER → 2024-04-23 08:15 | Outpatient (BNVA) | payer BC, SELFPAY | PROVIDERS: PCP Internal Medicine; Visit Provider Internal Medicine | DX: J06.9 Acute upper respiratory infection, unspecified (principal); K59.01 Slow transit constipation; E55.9 Vitamin D deficiency, unspecified; M85.80 Other specified disorders of bone density and structure, unspecified site; Z23 Encounter for immunization | CPT/HCPCS: 90471; 90656 ==

== ENCOUNTER 2024-09-03 14:57 | Outpatient (AMB) | payer BC, SELFPAY ==
[2024-09-03 15:01] VITALS: BP 130/78; PULSE 75; O2SAT 97; BMI 31.4
--- NOTE | 2024-09-03 15:01 | MHC.PC.OV ---
Vital Signs 09/03/24 15:01 Height 5 ft 4 in Weight 183 lb BMI 31.4 BP 130/78 Blood Pressure Location Lt brachial Position Sitting Pulse 75 Pulse Source Pulse Oximeter Pulse Oximetry (%) 97 Oxygen Delivery Method Room Air Intake Visit Reasons: Right Ear infection Foreclosure Clerk Required: No Accompanied by: Self / Same As Patient Allergies atorvastatin Adverse Reaction (Mild, Verified 09/04/24 22:11) myalgia Medication List - Last Reconciled 09/04/24 by GALA Nick amoxicillin-pot clavulanate 500-125 mg (Augmentin) 1 tab PO BID 10 days ascorbate calcium (vitamin C) 500 mg PO DAILY aspirin (Aspirin Childrens) 81 mg PO DAILY calcium carbonate (Calcium 600) 600 mg PO BID 90 days cetirizine (Zyrtec) 10 mg PO DAILY PRN cholecalciferol (vitamin D3) 250 mcg PO MOFR fluticasone propionate 50 mcg/actuation 1 spray intranasal BID lidocaine 5% 1 patch topical DAILY PRN omega-3 fatty acids (Fish Oil Concentrate) 1,000 mg PO DAILY sennosides (senna) 8.6 mg PO DAILY Tobacco use date assessed: 09/03/24 Fall risk assessment: No Falls in past year Last assessed Fall Risk: 09/03/24 Dental Screening Dental Screen Date: 09/03/24 Did you have a dental visit in the last 12 months?: Yes Did you have a dental problem in the last 6 months where you did not have access to dental care?: No Was dental information given to patient?: Patient has dentist HPI Right Ear infection HPI Details The patient is a 63-year-old female URI, right ear pain, GERD, hypovitaminosis D, obese, constipation, and pure hypercholesterolemia The patient is presenting today with right ear pain, right sided sinus pressure and feeling like water is in the right ear Patient reports that yesterday she woke up dizzy and vomited up some bilex1 She reports nasal congestion, denies coughing and endorses fever at the start of her symptoms On examination: Right ear opaque with effusion, left ear with small amount of cerumen impaction Lungs are clear to auscultation bilaterally. We will recommend the patient to use debrox ear drop in left ear to soften up impacted cerumen and will start the patient on ABT for right ear infection. Four months ago, the patient presented with similar symptoms and was treated with z-pack . [facility] Medical History Incisional hernia Osteoarthritis of right knee Right knee pain Obese Constipation by delayed colonic transit Pure hypercholesterolemia Hypovitaminosis D GERD (gastroesophageal reflux disease) Surgical History History of hernia repair (~02/28/24) History of tooth extraction History of laparoscopic cholecystectomy History of hysterectomy Family History Father Heart disease Mother Diabetes Hypertension Heart valve replaced Brother Myocardial infarction Maternal Grandmother No problems noted. Maternal Grandfather No problems noted. Paternal Grandmother Colon cancer Paternal Grandfather No problems noted. Sister Uterine cancer Social History Household Members: Spouse Housing: House Do you presently have visiting nurse or other home services: No Alcohol intake: current Alcohol intake frequency: holidays/special occasions only Alcohol type: wine Comment: counts correct Patient Tobacco Use Status: Never used Tobacco e-Cigarette/Vaping Use: Never Used Second Hand Smoke Exposure: No service: No Current occupational status: retired Current occupation: [employer] Cognitive needs: No Hearing needs: No Vision needs: Yes (Glasses) Questionnaire PHQ-9 Over the last 2 weeks, how often have you been bothered by any of the following problems? 1. Little interest or pleasure in doing things: not at all 2. Feeling down, depressed, or hopeless: not at all 3. Trouble falling or staying asleep, or sleeping too much: not at all 4. Feeling tired or having little energy: not at all 5. Poor appetite or overeating: not at all 6. Feeling bad about yourself - or that you are a failure or have let yourself or your family down: not at all 7. Trouble concentrating on things, such as reading the newspaper or watching television: not at all 8. Moving or speaking so slowly that other people could have noticed. Or the opposite - being so fidgety or restless that you have been moving around a lot more than usual: not at all 9. Thoughts that you would be better off or of hurting yourself in some way: not at all Total score: 0 Depression Screening Interpretation: Negative Depression Screening Done: Yes 64465 - PHQ-9 Billing: Yes Source: Developed by Drs. Yasir Calero, Neeru Valenzuela, Lalo Murcia and colleagues, with an educational terrance from [employer]. Thrive Questionnaire Date Thrive assessed: 09/03/24 I am a: Patient What is your living situation today?: I have a steady place to live Within the past 12 months, did the food you bought not last and you didn't have the money to get more?: Never true Within the past 12 months, did you worry whether your food would run out before you got money to buy more?: Never true Do you have trouble paying for medicines?: No Do you have trouble getting transportation to medical appointments?: No Do you have trouble paying your heating and electricity bill?: No Do you have trouble taking care of your child, family member or friend?: No Do you have trouble with day-to-day activities such as bathing, preparing meals, shopping, managing finances, etc.?: No Are you currently unemployed and looking for a job?: I choose not to answer this question Are you interested in more education?: No Please select the resources that you would like help with: None Currently or been in a relationship where the following occur: No concerns reported THRIVE Score: 0 AUDIT C Alcohol Use Questionnaire (AUDIT-C) 1. How often do you have a drink containing alcohol?: Monthly or less 2. How many drinks containing alcohol do you have on a typical day when you are drinking?: 1 or 2 3. How often do you have six or more drinks on one occasion?: Never Total Score: 1 Score Reviewed/Action Taken: No JILLIAN-7 AMB Questionnaire JILLIAN-7 Date JILLIAN - 7 assessed: 09/03/24 Feeling nervous, anxious, or on edge: 0 = Not at all Not being able to stop or control worryin = Not at all Worrying too much about different things: 0 = Not at all Trouble relaxin = Not at all Being so restless that it is hard to sit still: 0 = Not at all Becoming easily annoyed or irritable: 0 = Not at all Feeling afraid as if something awful might happen: 0 = Not at all Total JILLIAN-7 score (0-4 normal; 5-9 mild; 10-14 moderate; 15-21 severe): 0 Source: Developed by Drs. Yasir Calero, Neeru Valenzuela, Lalo Murcia and colleagues, with an educational terrance from [employer]. JILLIAN-7 Assessment Billing JILLIAN-7 Assessment Tool: JILLIAN-7 Assessment 84937 Review of Systems Const Details: Denies chills, Denies fatigue, Denies fever(s), Denies headache(s) and Denies weakness HEENT Denies change in vision, Denies dizziness, Denies headache(s), Denies hearing loss, +right ear pain, +nasal congestion, + sinus pain, Denies sinus pressure and Denies sore throat Card Denies chest pain, Denies lightheadedness, Denies dyspnea and Denies other (palpitations) Resp Denies cough, Denies dyspnea and Denies wheezing GI Denies abdominal pain, Denies melena, Denies hematochezia, Denies change in bowel habits, Denies dyspepsia and +nausea and vomited x1(bile -appearing liquid) Denies hematuria and Denies dysuria Musc Denies abnormal gait, Denies myalgias, Denies arthralgias, Denies numbness and Denies tingling Skin/Breast Denies rash, Denies unusual bruising and Denies wounds Neuro Denies abnormal gait, Denies dizziness, Denies headache(s), Denies memory loss, Denies numbness, Denies Sensory deficit (Neuro), Denies tingling and Denies weakness Psych Denies anxiety, Denies depression and Denies memory loss Endo Denies cold intolerance, Denies fatigue, Denies heat intolerance, Denies polydipsia and Denies polyuria Tamir/Lymph Denies easy bleeding and Denies easy bruising Aller/Immun Denies wheezing Physical exam (Primary Care) Vital Signs: Last Vital Signs Pulse 75 09/03/24 15:01 BP 130/78 09/03/24 15:01 Pulse Ox 97 09/03/24 15:01 Oxygen Delivery Method Room Air 09/03/24 15:01 BMI result Body Mass Index 31.4 Tobacco/Smoking Status: Tobacco use Status Tobacco use date assessed 09/03/24 09/03/24 15:06 Patient Tobacco Use Status Never used Tobacco 09/03/24 15:06 e-Cigarette/Vaping Use Never Used 09/03/24 15:06 PHQ-9: PHQ-9 Score PHQ-9: Total score 0 09/03/24 15:31 Depression Screening Interpretation: Negative Thrive Assessment: Date of Thrive Assessment Date Thrive assessed 09/03/24 09/03/24 15:06 Currently or been in a relationship where the following occur: No concerns reported Const Other: General: no acute distress, well developed, alert and awake Nutritional Appearance: well nourished Orientation/consciousness: patient oriented x3 HENMT Head: Yes normocephalic and Yes atraumatic Ears: hearing grossly normal bilaterally and right TM opaque with effusion General nose exam: Normal external nose present and bilateral nares erythematous with boggy turbinates Mouth: Normal oral and palatal mucosa present and moist mucous membranes Teeth and gingiva: dentition normal Throat: Yes oropharynx normal Eyes Pupils: Equal, round and reactive pupils present and Pupil accommodation reflex normal EOM: EOMs intact bilaterally Neck Neck: Yes normal visual inspection, Yes no lymphadenopathy and Yes trachea midline Thyroid: Thyroid normal Carotids: no bruits Lymphatic: no lymphadenopathy noted Resp Effort & Inspection: normal respiratory effort Auscultation: clear to auscultation bilaterally Cardio Rate: regular rate Rhythm: regular rhythm Heart sounds: S1 normal heart sound present, S2 normal heart sound present, no gallops, no murmurs and no rubs Bruits: no abdominal aortic bruits and no carotid bruits GI Palpation (GI): No Abdominal aortic bruit present, Soft to palpation, nontender, No hepatosplenomegaly present and No Rebound tenderness present Auscultation: normal bowel sounds General: Yes no CVA tenderness Coding Level of Care Code Est Pt Level 3 (27394) Diagnoses Nasal congestion R09.81 Right otitis media with effusion H65.91 Laterality: right Additional Codes PHQ-9 - 64460 - PHQ-9 Billing: Yes ([id number]) JILLIAN-7 Assessment Billing - JILLIAN-7 Assessment Tool: JILLIAN-7 Assessment 08960 ([id number]) Time Spent (min) 29 Assessment & Plan Assessment & Plan (1) Nasal congestion: Code(s): R09.81 - Nasal congestion Category: Medical Plan: Fluticasone proprionate 50 mcg/actuation 1 spray bid ordered and encouraged her to take her zyrtec Increased po fluids (2) Otitis media with effusion: Code(s): H65.90 - Unspecified nonsuppurative otitis media, unspecified ear Category: Medical Qualifiers: Laterality: right Qualified Code(s): H65.91 - Unspecified nonsuppurative otitis media, right ear Plan: Augmentin bid x10 days ordered Encouraged PO fluids Medications: New amoxicillin-pot clavulanate 500-125 mg (Augmentin) 1 tab PO BID 7 days 14 tabs 0RF H65.90 - Unspecified nonsuppurative otitis media, unspecified ear fluticasone propionate 50 mcg/actuation administer into each nostril 1 spray intranasal BID 16 grams 0RF R09.81 - Nasal congestion amoxicillin-pot clavulanate 500-125 mg (Augmentin) 1 tab PO BID 10 days 20 tabs 0RF H65.90 - Unspecified nonsuppurative otitis media, unspecified ear
== END 2024-09-03 15:42 | disposition home or self-care (01) ==
PROVIDERS: PCP Internal Medicine
DX: R09.81 Nasal congestion (principal); H65.91 Unspecified nonsuppurative otitis media, right ear

== ENCOUNTER → 2024-09-03 14:57 | Outpatient (BNVA) | payer BC, SELFPAY | PROVIDERS: PCP Internal Medicine | DX: R09.81 Nasal congestion (principal); H65.91 Unspecified nonsuppurative otitis media, right ear | CPT/HCPCS: 96127 ==

== ENCOUNTER 2024-09-10 12:13 | Outpatient (AMB) | payer BC, SELFPAY ==
--- NOTE | 2024-09-10 12:47 | AM.OFFWIN_ITS ---
Intake Vital Signs 09/10/24 12:48 Weight 179 lb BP 130/90 H Blood Pressure Location Rt brachial Position Sitting Pulse 65 Pulse Source Pulse Oximeter Pulse Oximetry (%) 98 Oxygen Delivery Method Room Air Intake Visit Reasons: EP Shingles? Intake Note: Patient here for rash like under left eye and has been having a lot of head pain which stared about 3 days ago. Patient Tobacco Use Status: Never used Tobacco Allergies atorvastatin Adverse Reaction (Mild, Verified 09/10/24 12:57) myalgia Do you need a note to return to daycare/school/sports/work: No HPI HPI Comments History of Present Illness Details History of Present Illness - The patient is a 63-year-old female pr esenting with pain associated with eruption suggestive of herpes zoster (shingles). - Vesicular lesions appeared three days prior, characterized by clear fluid discharge, with tingling and burning sensations. Subsequent reports indicate residual itchiness and pain. - The patient had an antecedent history of acute sinusitis and bilateral acute otitis media treated with amoxicillin. - Current objective findings excluded oc ular involvement, and the advised protocol for initiation of antiviral therapy was surpassed. - patient also complaining of wax buildu p in both ears. She was told she had a wax blockage and to use Debrox drops and to come back. She has been using Debrox drops and is asking us to irrigate them today. Physical Exam General: Cooperative, healthy appearing, comfortable, no acute distress and well developed Orientation: Patient oriented x3 Limitations: No limitations Head: Normal to inspection Ears: Hearing grossly normal bilaterally, bilateral TM's cerumen blockage Nose: Normal external nose present Face and sinus: Previously had a sinus infection Eyes: Appearance normal, both eyes and all related structures Neck: Normal visual inspection and Yes full ROM Respiratory: Normal respiratory effort and able to speak in complete sentences. Skin: right cheek has 1 cm area of small fluid filled vesicles with erythematous base, no warmth, V2 dermatome Neuro: Patient oriented x3 Extremities: Normal to inspection [facility] Medical History Incisional hernia Osteoarthritis of right knee Right knee pain Obese Constipation by delayed colonic transit Pure hypercholesterolemia Hypovitaminosis D GERD (gastroesophageal reflux disease) Surgical History History of hernia repair (~02/28/24) History of tooth extraction History of laparoscopic cholecystectomy History of hysterectomy Family History Father Heart disease Mother Diabetes Hypertension Heart valve replaced Brother Myocardial infarction Maternal Grandmother No problems noted. Maternal Grandfather No problems noted. Paternal Grandmother Colon cancer Paternal Grandfather No problems noted. Sister Uterine cancer Social History Household Members: Spouse Housing: House Do you presently have visiting nurse or other home services: No Alcohol intake: current Alcohol intake frequency: holidays/special occasions only Alcohol type: wine Comment: counts correct Patient Tobacco Use Status: Never used Tobacco e-Cigarette/Vaping Use: Never Used Second Hand Smoke Exposure: No service: No Current occupational status: retired Current occupation: [employer] Cognitive needs: No Hearing needs: No Vision needs: Yes (Glasses) Review of Systems Const All systems reviewed & are unremarkable except as noted in HPI and below Physical Exam Vital Signs: Last Vital Signs Pulse 65 09/10/24 12:48 BP 130/90 H 09/10/24 12:48 Pulse Ox 98 09/10/24 12:48 Oxygen Delivery Method Room Air 09/10/24 12:48 Office Procedures Cerumen Removal From which ear canal was the cerumen removed: bilateral Removal: irrigation Notes: patient tolerated procedure well, no complications and ear canal clear [id number] Irrigation/Lavage Assessment & Plan Assessment & Plan (1) Shingles: Code(s): B02.9 - Zoster without complications Qualifiers: Herpes zoster complications: without complications Qualified Code(s): B02.9 - Zoster without complications Plan: For the suspected herpes zoster, I explained that initiating antiviral therapy would not benefit at this stage; instead, focus was directed towards pain management with gabapentin, providing dosage flexibility as needed to match pain severity, and discussing side effects. Monitoring of lesion progression was advised. Ensuring follow-up with the primary care provider for any aggravation of symptoms was advised. Finally, I recommended considering a shingles vaccine in the future for preventive measures. Patient was informed and verbally consented to the use of an ambient scribe for clinic note documentation during this visit. (2) Impacted cerumen of both ears: Code(s): H61.23 - Impacted cerumen, bilateral Plan: Irrigated both ears, with removal of impacted cerumen bilaterally. Recommended use debrox drops every 3-4 weeks as preventative for wax buildup. Orders: Orders AMB Cerumen Removal Today H61.23 - Impacted cerumen, bilateral Medications: New gabapentin 100 mg PO Q8H PRN 20 caps 0RF pain Coding Level of Care Code Est Pt Level 4 (56711) Diagnoses Herpes zoster without complication B02.9 Herpes zoster complications: without complications Impacted cerumen of both ears H61.23 CPT Codes Office Procedure - CPT: 93822-Rmm Irrigation/Lavage ([id number])
[2024-09-10 12:48] VITALS: BP 130/90; PULSE 65; O2SAT 98
== END 2024-09-10 13:48 | disposition home or self-care (01) ==
PROVIDERS: PCP Internal Medicine; Visit Provider Physician Assistant
DX: H61.23 Impacted cerumen, bilateral (principal); B02.9 Zoster without complications

== ENCOUNTER → 2024-09-10 12:13 | Outpatient (BNVA) | payer BC, SELFPAY | PROVIDERS: PCP Internal Medicine | DX: B02.9 Zoster without complications (principal); H61.23 Impacted cerumen, bilateral | CPT/HCPCS: 69209 ==

== ENCOUNTER 2025-01-10 10:58 | Outpatient (REF) | payer BC, SELFPAY | END 2025-01-10 10:59 | disposition home or self-care (01) | LOC: HO.MAMMO 10:58 | PROVIDERS: PCP Internal Medicine; Visit Provider Internal Medicine | DX: Z12.31 Encounter for screening mammogram for malignant neoplasm of breast (principal) | CPT/HCPCS: 77063; 77067 ==

== ENCOUNTER → 2025-01-10 11:00 | Outpatient (BNV) | payer BC, SELFPAY | PROVIDERS: PCP Internal Medicine; Visit Provider Internal Medicine | DX: Z12.31 Encounter for screening mammogram for malignant neoplasm of breast (principal) | CPT/HCPCS: 77063; 77067 ==

== ENCOUNTER 2025-02-14 08:43 | Outpatient (AMB) | payer BC, SELFPAY ==
--- NOTE | 2025-02-14 08:47 | MHC.OFFVIS ---
Vital Signs 02/14/25 08:50 Height 5 ft 4 in Weight 174 lb 2.643 oz BMI 29.9 BP 142/78 H Blood Pressure Location Lt brachial Position Sitting Pulse 82 Intake Visit Reasons: 6 month follow up Intake Note: Anasia presents in the office as a 6 month follow up. CC: Not having any concerns at this time. Allergies atorvastatin Adverse Reaction (Mild, Verified 09/10/24 12:57) myalgia Medication List - Last Reconciled 02/14/25 by William Bolton MD ascorbate calcium (vitamin C) 500 mg PO DAILY aspirin (Aspirin Childrens) 81 mg PO DAILY calcium carbonate (Calcium 600) 600 mg PO BID 90 days cetirizine (Zyrtec) 10 mg PO DAILY PRN cholecalciferol (vitamin D3) 250 mcg PO MOFR fluticasone propionate 50 mcg/actuation 1 spray intranasal BID lidocaine 5% 1 patch topical DAILY PRN ftqohchn-klzzjodey-OA 3.5-10,000-1 mg/mL-unit/mL-% 4 drps otic (ear) right DAILY omega-3 fatty acids (Fish Oil Concentrate) 1,000 mg PO DAILY sennosides (senna) 8.6 mg PO DAILY HPI HPI 6 month follow up: Details: GI clinic visit for this 64-year-old female for FU of GERD, chronic constipation and rectal bleeding. CHRONIC ILLNESSES: hypertension, hyperlipidemia, gastroesophageal reflux disease (GERD), hx of kidney stones, peptic ulcer disease TODAY'S VISIT: Anasasia presents in the office as a 6 month follow up. CC: Not having any concerns at this time. Doing well - denies abdominal pain Takes Senna daily for constipation and able to have a BM Denies rectal bleeding. PAST VISITS: On 02/28/24 Repair of multiple and large incisional hernias with Ventrio mesh, and extensive lysis of adhesions was performed by Dr. Clements without complication. Pt reports abd pain has resolved since the surgery. Constipation is not too bad - only when she eats sweets Takes Miralax and Senna once every 3 months as needed. Denies bleeding from hemorrhoids since she had hemorrhoidectomy Pt was seen by Dr Clements for management of to ventral hernia. Pt would like to review CT results with her sister (who is a nurse) prior to scheduling surgical repair Rectal bleeding has resolved Patient cc: right lower of abdominal discomfort on and off, hemorrhoids when she push a lot for BM, medication for constipation is helping her. Denies any other GI issues. Complains of intermittent throbbing pains in the RLQ radiating to the back. Notes pain if she takes red meat or fried foods Pain can last for a few days and resolve. Has been using the patches and Ibuprofen if pain gets severe. Denies change in appetite and has gained weight. Notes constipation and takes Senna Hemorrhoids come out when she strains Has to use hemorrhoid cream One episode of bleeding from hemorrhoids 2 -3 weeks ago. Had hysterectomy at 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 ?Notes heartburn once in a while depending on what she is eating. ?Denies recent black stools or rectal bleeding. ?Patient denies major cardiac or pulmonary problems, loud snoring or sleep apnea ?Denies problems with anesthesia in the past. ?Denies being on chronic anticoagulation. Patient denies known family history of colon polyps, colon cancer or other GI malignancies. [facility]. IMAGING STUDIES: 01/06/[address] SCAN SHOWED: 1. No acute intra-abdominal or pelvic abnormality. 2. Two ventral hernias containing small bowel and colon as described above. No strangulation or incarceration. 3. Normal appendix. 4. Fatty infiltration of the liver. 5. Cholecystectomy. 6. Stable fatty replacement of the pancreas. 7. 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 08/07/19 abdominal ultrasound showed: ? Supraumbilical diastasis and bulge versus small hernia. This could be ? better assessed with CT scan if clinically indicated. ?11/22/18 CT colonography showed: ?Small amount of adherent stool is seen within the colon. There is ? however a small 6 mm nodular density along the posterior wall of the ? mid sigmoid colon which does not appear to significantly change in ? position between the supine and prone images. Although this could ? represent non-mobile adherent stool, a small 6 mm polyp cannot be ? excluded. Would clinically correlate with the recent incomplete ? colonoscopy to determine if the colonoscopy was able to extend through ? the sigmoid colon and possibly may have evaluated this area. I do not ? appreciate any more suspicious non-mobile abnormalities in the more proximal colon. ?ENDOSCOPIC STUDIES: 11/2018 EGD and colonoscopy showed: ?Endoscopy Findings: ?LARYNX: Changes suggestive of LPRD ?ESOPHAGUS: Focal esophagitis with irregular Z line ?STOMACH: Healing 1.5 cms ulcer/erosion in the pre-pyloric area - biopsied. Mild gastric erythema. DUODENUM: Normal ?Colonoscopy Findings: No polyps seen. ?Incomplete colonoscopy till proximal TC. ?Severe diverticulosis seen in the left colon ?Moderate hemorrhoids on antegrade withdrawl - unable to perform a retroflexed exam despite multiple attempts. ?Plan: ?Await pathology results. ?Proceed with CTC today to evaluate the right colon. ?Continue present medications (Senna- Docusate for constipation) ?Patient has an appointment on 12/20/18 in the GI Clinic with William Bolton M.D.-. ?Repeat Colonoscopy/CTC in 10 years for colon cancer screening if CTC today is negative. 11/23/2018 03:48:50 PM EDT > Patient called and biopsy findings and results of CT Colonography were reviewed with her. She noted some lower abdominal cramps after the procedure - slowly improving. Prescription sent for Omeprazole 20 mg once daily. ?Biopsies showed: ?A. Stomach, antral ulcer, biopsy: Antal mucosa with chronic inactive gastritis and ? superimposed reactive/regenerative epithelial changes; negative for intestinal ? metaplasia, dysplasia, carcinoma, and Helicobacter pylori. ? B. Gastric, antrum, biopsy: Antral mucosa with chronic inactive gastritis and ? superimposed reactive/regenerative epithelial changes; negative for intestinal ? metaplasia, dysplasia, carcinoma, and Helicobacter pylori. ? C. Esophagus, distal, biopsy: Corpus-type mucosa with mild chronic inflammation; ? negative for intestinal metaplasia, dysplasia, and carcinoma. ?PAST GI HISTORY BY REVIEW OF MEDICAL RECORDS: ?Patient was last seen on 11/14/2018: ?Assessments ?1. Rectal bleeding - K62.5 (Primary) ?2. Family history of colonic polyps - Z83.71 ?3. Chronic constipation - K59.09 ?4. Gastroesophageal reflux disease, esophagitis presence not specified - K21.9 ?58 YF with hypertension, hyperlipidemia, gastroesophageal reflux disease (GERD), hx of kidney stones, peptic ulcer disease ?seen for chronic constipation and 2 week history of rectal bleeding. Likely cause of rectal bleeding is rectal irritation from straining and passage of hard stool. Other possibilities include hemorrhoids or minor diverticular bleed. Since her last colonoscopy was performed 9 years ago, I would recommend proceeding with repeat colonoscopy with MAC. ?Same-day EGD for evaluation of abdominal pain and history of GERD. Procedure and potential complications were reviewed with the patient. She was advised to start taking senna for constipation. ?Treatment ?1. Rectal bleeding ?Start Dulcolax Tablet Delayed Release, 5 mg, 2 tablets, Orally, twice a day, 1 day, 4 Tablet, Refills 0 ?Start TriLyte Solution Reconstituted, 420 GM, as directed, Orally, as directed, 1 day, 1 bottle, Refills 0 ? IMAGING: Colonoscopy ?2. Chronic constipation ?Start Senna-Docusate Sodium Tablet, 8.6-50 MG, 1 tablet in the evening as needed, Orally, Once a day, 30 day(s), 30, Refills 4 ?3. Gastroesophageal reflux disease, esophagitis presence not specified ?Notes: Same-day EGD for evaluation of abdominal pain and history of GERD [facility] Medical History Incisional hernia Osteoarthritis of right knee Right knee pain Obese Constipation by delayed colonic transit Pure hypercholesterolemia Hypovitaminosis D GERD (gastroesophageal reflux disease) Surgical History History of hernia repair (~02/28/24) History of tooth extraction History of laparoscopic cholecystectomy History of hysterectomy Family History Father Heart disease Mother Diabetes Hypertension Heart valve replaced Brother Myocardial infarction Maternal Grandmother No problems noted. Maternal Grandfather No problems noted. Paternal Grandmother Colon cancer Paternal Grandfather No problems noted. Sister Uterine cancer Social History Household Members: Spouse Housing: House Do you presently have visiting nurse or other home services: No Alcohol intake: current Alcohol intake frequency: holidays/special occasions only Alcohol type: wine Comment: counts correct Patient Tobacco Use Status: Never used Tobacco e-Cigarette/Vaping Use: Never Used Second Hand Smoke Exposure: No service: No Current occupational status: retired Current occupation: [employer] Cognitive needs: No Hearing needs: No Vision needs: Yes (Glasses) Review of Systems Const All systems reviewed & are unremarkable except as noted in HPI and below Physical Exam Vital Signs: Last Vital Signs Pulse 82 02/14/25 08:50 BP 142/78 H 02/14/25 08:50 BMI result Body Mass Index 29.9 Const General: healthy appearing and no acute distress Nutritional Appearance: overweight Orientation/consciousness: patient oriented x3 Limitations: no limitations HEENT Head: Yes normal to inspection Ears: hearing grossly normal bilaterally Eyes Sclerae: sclerae normal Pupils: Equal, round and reactive pupils present Neck Neck: Yes normal visual inspection Chest Chest palpation & inspection: normal inspection of the chest Resp Effort & Inspection: normal respiratory effort Auscultation: clear to auscultation bilaterally Cardio Palpation: normal PMI Rate: regular rate Rhythm: regular rhythm Heart sounds: S1 normal heart sound present, S2 normal heart sound present and no murmurs GI Inspection: Yes scar (well healed periumblical scar of recent hernia surgery) Palpation (GI): Soft to palpation, nontender and No hepatosplenomegaly present Auscultation: normal bowel sounds Rectal Exam - Female: deferred Skin General skin exam: no rashes or lesions noted Neuro General: patient oriented x3, gait normal and moves all extremities Cranial nerves: Yes Equal, round and reactive pupils present Psych Appearance: grossly normal Mental Status: mental status grossly normal Assessment & Plan Assessment & Plan (1) GERD (gastroesophageal reflux disease): Code(s): K21.9 - Gastro-esophageal reflux disease without esophagitis Category: Medical Qualifiers: Esophagitis presence: esophagitis presence not specified Qualified Code(s): K21.9 - Gastro-esophageal reflux disease without esophagitis (2) Constipation by delayed colonic transit: Code(s): K59.01 - Slow transit constipation Category: Medical (3) Bleeding hemorrhoids: Code(s): K64.9 - Unspecified hemorrhoids Category: Medical (4) Colon cancer screening: Code(s): Z12.11 - Encounter for screening for malignant neoplasm of colon Category: Medical Plan 64 YF with hypertension, hyperlipidemia, gastroesophageal reflux disease (GERD), hx of kidney stones, peptic ulcer disease followed in GI for chronic constipation and history of rectal bleeding. 11/2018 EGD and colonoscopy showed focal esophagitis with irregular Z line and a healing 1.5 cms ulcer/erosion in the pre-pyloric area. Gastric biopsies were positive for Helicobacter pylori and patient was treated with antibiotics. Same day colonoscopy was Incomplete till proximal TC due to severe diverticulosis in the left colon Moderate hemorrhoids on antegrade withdrawl - likely source for rectal bleeding. A CTC was performed and findings as noted above. 11/03/23 Complains of intermittent throbbing pains in the RLQ radiating to the back. Notes pain if she takes red meat or fried foods Pain can last for a few days and resolve. Has been using the patches and Ibuprofen if pain gets severe. Denies change in appetite and has gained weight. Notes constipation and takes Senna Obtain records from [facility] regarding gynecological surgery Pt was advised to schedule an Abd CT scan and fu in 3 month Hold off colonoscopy for now since she had a negative colon and CTC in 201802/09/24 Pt was seen by Dr Clements for management of ventral hernia. Pt would like to review CT results with her sister (who is a nurse) prior to scheduling surgical repair Rectal bleeding has resolved Pt advised wt reduction for fatty liver noted on CT scan (has normal LFTs 08/16/24 Pt advised to continue MiraLax and senna p.r.n. for constipation. 02/14/25 Doing well - denies abdominal pain Takes Senna daily for constipation and able to have a BM Denies rectal bleeding. Pt advised to check a Cologuard test (11/2018 pt had an incomplete colonoscopy and CTC showed ? polyp in the sigmoid colon) Follow-up in 8 months Orders: Referrals Cologuard Test Z12.11 - Encounter for screening for malignant neoplasm of colon Coding Level of Care Code Est Pt Level 4 (76572) Diagnoses Gastroesophageal reflux disease, unspecified whether esophagitis present K21.9 Esophagitis presence: esophagitis presence not specified Constipation by delayed colonic transit K59.01 Bleeding hemorrhoids K64.9 Colon cancer screening Z12.11 Time Spent (min) 18
[2025-02-14 08:50] VITALS: BP 142/78; PULSE 82; BMI 29.9
== END 2025-02-14 10:12 | disposition home or self-care (01) ==
PROVIDERS: PCP Internal Medicine; Visit Provider Internal Medicine Gastroenterology
DX: K21.9 Gastro-esophageal reflux disease without esophagitis (principal); K59.01 Slow transit constipation; K64.9 Unspecified hemorrhoids
CPT/HCPCS: 99214

== ENCOUNTER 2025-02-28 12:24 | Outpatient (AMB) | payer BC, SELFPAY ==
--- NOTE | 2025-02-28 12:36 | MHC.PC.OV ---
Vital Signs 02/28/25 12:41 Height 5 ft 4 in Weight 174 lb 2 oz BMI 29.9 BP 136/78 Blood Pressure Location Lt brachial Position Sitting Pulse 77 Pulse Source Pulse Oximeter Temp 97.3 F Temp Source Temporal Artery Scan Pulse Oximetry (%) 96 Oxygen Delivery Method Room Air Intake Visit Reasons: annual physical Back Wedger Required: No Accompanied by: Self / Same As Patient Allergies atorvastatin Adverse Reaction (Mild, Verified 02/28/25 12:52) myalgia Medication List - Last Reconciled 02/28/25 by Analisa Dominguez MD ascorbate calcium (vitamin C) 500 mg PO DAILY aspirin (Aspirin Childrens) 81 mg PO DAILY calcium carbonate (Calcium 600) 600 mg PO BID 90 days cetirizine (Zyrtec) 10 mg PO DAILY PRN cholecalciferol (vitamin D3) 250 mcg PO MOFR fluticasone propionate 50 mcg/actuation 1 spray intranasal BID lidocaine 5% 1 patch topical DAILY PRN nwgfxuke-doinngeuo-IY 3.5-10,000-1 mg/mL-unit/mL-% 4 drps otic (ear) right DAILY omega-3 fatty acids (Fish Oil Concentrate) 1,000 mg PO DAILY sennosides (senna) 8.6 mg PO DAILY Tobacco use date assessed: 02/28/25 Fall risk assessment: No Falls in past year Last assessed Fall Risk: 02/28/25 Dental Screening Dental Screen Date: 02/28/25 Did you have a dental visit in the last 12 months?: Yes Did you have a dental problem in the last 6 months where you did not have access to dental care?: No Was dental information given to patient?: Patient has dentist HPI HPI Comments History of Present Illness Details The patient is a 64-year-old female presenting for a physical examination. She received a pneumonia vaccine last year at the age of 63. The Tdap vaccine was administered in 2017, with the next dose due in 2026. A mammogram was conducted last month, which returned negative results. Bone density screening performed last year indicated osteopenia, with a follow-up recommended in 2025. A colonoscopy was completed in 2018. [facility] Medical History Incisional hernia Osteoarthritis of right knee Right knee pain Obese Constipation by delayed colonic transit Pure hypercholesterolemia Hypovitaminosis D GERD (gastroesophageal reflux disease) Surgical History History of hernia repair (~02/28/24) History of tooth extraction History of laparoscopic cholecystectomy History of hysterectomy Family History Father Heart disease Mother Diabetes Hypertension Heart valve replaced Brother Myocardial infarction Maternal Grandmother No problems noted. Maternal Grandfather No problems noted. Paternal Grandmother Colon cancer Paternal Grandfather No problems noted. Sister Uterine cancer Social History Household Members: Spouse Housing: House Do you presently have visiting nurse or other home services: No Alcohol intake: current Alcohol intake frequency: holidays/special occasions only Alcohol type: wine Comment: counts correct Patient Tobacco Use Status: Never used Tobacco e-Cigarette/Vaping Use: Never Used Second Hand Smoke Exposure: No service: No Current occupational status: retired Current occupation: [employer] Cognitive needs: No Hearing needs: No Vision needs: Yes (Glasses) Questionnaire PHQ-9 Over the last 2 weeks, how often have you been bothered by any of the following problems? 1. Little interest or pleasure in doing things: not at all 2. Feeling down, depressed, or hopeless: not at all 3. Trouble falling or staying asleep, or sleeping too much: not at all 4. Feeling tired or having little energy: not at all 5. Poor appetite or overeating: not at all 6. Feeling bad about yourself - or that you are a failure or have let yourself or your family down: not at all 7. Trouble concentrating on things, such as reading the newspaper or watching television: not at all 8. Moving or speaking so slowly that other people could have noticed. Or the opposite - being so fidgety or restless that you have been moving around a lot more than usual: not at all 9. Thoughts that you would be better off or of hurting yourself in some way: not at all Total score: 0 Depression Screening Interpretation: Negative Depression Screening Done: Yes 32025 - PHQ-9 Billing: Yes Source: Developed by Drs. Yasir Calero, Neeru Valenzuela, Lalo Murcia and colleagues, with an educational terrance from [employer]. Thrive Questionnaire Date Thrive assessed: 09/03/24 I am a: Patient What is your living situation today?: I have a steady place to live Within the past 12 months, did the food you bought not last and you didn't have the money to get more?: Never true Within the past 12 months, did you worry whether your food would run out before you got money to buy more?: Never true Do you have trouble paying for medicines?: No Do you have trouble getting transportation to medical appointments?: No Do you have trouble paying your heating and electricity bill?: No Do you have trouble taking care of your child, family member or friend?: No Do you have trouble with day-to-day activities such as bathing, preparing meals, shopping, managing finances, etc.?: No Are you currently unemployed and looking for a job?: I choose not to answer this question Are you interested in more education?: No Please select the resources that you would like help with: None Currently or been in a relationship where the following occur: No concerns reported THRIVE Score: 0 AUDIT C Alcohol Use Questionnaire (AUDIT-C) 1. How often do you have a drink containing alcohol?: Monthly or less 2. How many drinks containing alcohol do you have on a typical day when you are drinking?: 1 or 2 3. How often do you have six or more drinks on one occasion?: Never Total Score: 1 Score Reviewed/Action Taken: No JILLIAN-7 AMB Questionnaire JILLIAN-7 Date JILLIAN - 7 assessed: 09/03/24 Feeling nervous, anxious, or on edge: 0 = Not at all Not being able to stop or control worryin = Not at all Worrying too much about different things: 0 = Not at all Trouble relaxin = Not at all Being so restless that it is hard to sit still: 0 = Not at all Becoming easily annoyed or irritable: 0 = Not at all Feeling afraid as if something awful might happen: 0 = Not at all Total JILLIAN-7 score (0-4 normal; 5-9 mild; 10-14 moderate; 15-21 severe): 0 Source: Developed by Neeru Valadez Kurt Kroenke and colleagues, with an educational terrance from [employer]. JILLIAN-7 Assessment Billing JILLIAN-7 Assessment Tool: JILLIAN-7 Assessment 46635 Review of Systems Const All systems reviewed & are unremarkable except as noted in HPI and below Card Denies chest pain at rest, Denies chest pain with activity, Denies edema, Denies irregular heart rhythm, Denies claudication, Denies dyspnea, Denies dyspnea on exertion, Denies orthopnea, Denies paroxysmal nocturnal dyspnea and Denies slow heart rate Resp Denies cough, Denies dyspnea and Denies dyspnea on exertion GI Denies abdominal pain, Denies change in bowel habits, Denies excessive flatus, Denies nausea and Denies vomiting Denies urinary incontinence, Denies urinary hesitancy and Denies urinary urgency Musc Denies abnormal gait, Denies atrophy, Denies deformity and Denies limited range of motion Skin/Breast Denies bleeding lesions, Denies changing lesions and Denies rash Neuro Denies abnormal gait, Denies behavioral changes, Denies confusion and Denies lack of coordination Psych Denies behavioral changes and Denies confusion Endo Denies cold intolerance Physical exam (Primary Care) Vital Signs: Last Vital Signs Temp 97.3 F 02/28/25 12:41 Pulse 77 02/28/25 12:41 BP 136/78 02/28/25 12:41 Pulse Ox 96 02/28/25 12:41 Oxygen Delivery Method Room Air 02/28/25 12:41 BMI result Body Mass Index 29.9 Tobacco/Smoking Status: Tobacco use Status Tobacco use date assessed 02/28/25 02/28/25 12:44 Patient Tobacco Use Status Never used Tobacco 02/28/25 12:37 e-Cigarette/Vaping Use Never Used 02/28/25 12:37 PHQ-9: PHQ-9 Score PHQ-9: Total score 0 02/28/25 12:44 Depression Screening Interpretation: Negative Thrive Assessment: Date of Thrive Assessment Date Thrive assessed 09/03/24 02/28/25 12:37 Currently or been in a relationship where the following occur: No concerns reported Const General: No confusion Orientation/consciousness: patient oriented x3 and No confusion HENMT Head: Yes normal to inspection, Yes normocephalic and Yes atraumatic Ears: external ears normal Eyes General: appearance normal, both eyes and all related structures Eyelids: Yes eyelids normal Conjunctivae: conjunctivae normal Neck Neck: Yes normal visual inspection and Yes supple Resp Effort & Inspection: normal respiratory effort Auscultation: clear to auscultation bilaterally Cardio Jugular venous distension: no JVD Rate: regular rate Rhythm: regular rhythm Heart sounds: S1 normal heart sound present and S2 normal heart sound present GI Inspection: Yes normal to inspection Palpation (GI): Soft to palpation and nontender Auscultation: normal bowel sounds Skin General skin exam: no rashes or lesions noted Neuro General: patient oriented x3, no focal motor deficits and No confusion Extrem General: Yes full ROM Psych Appearance: grossly normal Coding Level of Care Code Est Pt Prev Care >65y(24834) Diagnoses Physical exam Z00.00 Additional Codes PHQ-9 - 56633 - PHQ-9 Billing: Yes ([id number]) JILLIAN-7 Assessment Billing - JILLIAN-7 Assessment Tool: JILLIAN-7 Assessment 97696 ([id number]) Time Spent (min) 30 Assessment & Plan Assessment & Plan (1) Physical exam: Code(s): Z00.00 - Encounter for general adult medical examination without abnormal findings Category: Medical Plan The patient should continue with regular health maintenance screenings. The next Tdap vaccination is scheduled for 2026. A follow-up bone density screening is recommended for 2025 to monitor osteopenia.
[2025-02-28 12:41] VITALS: BP 136/78; PULSE 77; TEMP 36.3; O2SAT 96; BMI 29.9
== END 2025-02-28 13:02 | disposition home or self-care (01) ==
LOC: HO.HMCH 12:24
PROVIDERS: PCP Internal Medicine; Visit Provider Internal Medicine
DX: Z00.00 Encounter for general adult medical examination without abnormal findings (principal)

== ENCOUNTER → 2025-02-28 12:24 | Outpatient (BNVA) | payer BC, SELFPAY | PROVIDERS: PCP Internal Medicine; Visit Provider Internal Medicine | DX: Z00.00 Encounter for general adult medical examination without abnormal findings (principal); K21.9 Gastro-esophageal reflux disease without esophagitis; E78.00 Pure hypercholesterolemia, unspecified | CPT/HCPCS: 96127 ==

== ENCOUNTER 2025-04-30 08:41 | Outpatient (REF) | payer SELFPAY ==
[2025-04-30 11:21] LABS: Alanine Aminotransferase 24 U/L (0-31); Albumin Level 4.2 g/dL (3.5-5.0); Alkaline Phosphatase 72 U/L (39-117); Anion Gap 11 (12-20); Aspartate Amino Transferase 24 U/L (5-31); Blood Urea Nitrogen 11 mg/dL (9-16); Calcium 9.2 mg/dL (8.4-10.2); Carbon Dioxide 25 mmol/L (22-29); Chloride 111 mmol/L (96-108); Cholesterol 219 mg/dL (<200); Estimated Glomerular Filt Rate > 60; HDL Cholesterol 53 mg/dL (>40); Potassium 3.9 mmol/L (3.3-5.1); Sodium 143 mmol/L (135-145); Total Protein 7.1 g/dL (6.5-8.0); Triglycerides 99 mg/dL (<150)
== END 2025-04-30 08:42 | disposition home or self-care (01) ==
LOC: HO.LAB 08:41
PROVIDERS: PCP Internal Medicine; Visit Provider Internal Medicine
DX: K21.9 Gastro-esophageal reflux disease without esophagitis (principal); E78.5 Hyperlipidemia, unspecified
CPT/HCPCS: 36415; 80053; 80061